=== PATIENT | female | born 1965 | race Caucasian/White ===

== ENCOUNTER 2018-04-03 20:26 | Emergency (ER) | payer OTHER, SELFPAY ==
[2018-04-03 20:44] VITALS: BP 110/69; PULSE 72; RESP 16; TEMP 36; O2SAT 99
--- NOTE | 2018-04-03 20:52 | ED.HA ---
HPI - Headache General Chief Complaint: Headache Stated Complaint: NAUSEA,MIGRAINED DRY THROAT Time Seen by Provider: 04/03/18 20:40 Source: patient and family Mode of arrival: ambulatory Limitations: no limitations History of Present Illness HPI Narrative: Patient with history of renal cell carcinoma and migraines presents to the emergency department with a gradually worsening occipital migraine headache that started this morning. She normally can take Tylenol or Motrin and help the pain, she has never been to the emergency department for migraine. She states it is worse with bright lights, loud noise and physical exhibiting a, she experiences some improvement with a quiet dark room. She does admit to multiple episodes of vomiting due to the pain and has lost control of her bowels with some of the a bouts of emesis. She denies any recent injury or exposure to chemicals. MD Complaint: headache and migraine Onset (ago): hour(s) Onset description: gradual Location: occipital Severity: severe Severity scale (1-10): 9 Quality: aching Relieving factors: dark room Exacerbating factors: exertion, light and noise Context: occurred at rest Associated symptoms: nausea, vomiting, photophobia and sensitivity to sound Related Data Previous Rx's Medication Instructions Recorded [BIEST 50:50] 1 mg TOPICAL QAM 30 Days #0 gm 12/22/17 progesterone micronized 100 mg PO QDAY #30 cap 12/22/17 Allergies Allergy/AdvReac Type Severity Reaction Status Date / Time hops [HOPS] Allergy Severe SWELLING Verified 04/03/18 20:43 OF THE THROAT (FROM BEER) Review of Systems Review of Systems All systems reviewed & are unremarkable except as noted in HPI and below Constitutional Denies chills, Denies fever(s), Reports headache(s), Denies lethargy and Denies weakness Eyes Denies change in vision, Denies eye discharge, Denies irritation and Denies loss of vision ENT Ears, Nose, Mouth, and Throat: Denies change in voice, Reports headache(s), Denies neck pain and Denies sore throat Cardiovascular Denies chest pain, Denies irregular heart rhythm, Denies lightheadedness, Denies palpitations, Denies dyspnea, Denies dyspnea on exertion and Denies orthopnea Respiratory Denies cough, Denies dyspnea, Denies dyspnea on exertion and Denies wheezing Gastrointestinal Gastrointestinal: Denies abdominal pain, Denies change in bowel habits, Reports diarrhea, Reports nausea and Reports vomiting Genitourinary Denies hematuria, Denies flank pain, Denies urinary incontinence and Denies urinary urgency Musculoskeletal Denies neck pain Integumentary/Breasts Denies pruritus, Denies erythema, Denies rash and Denies wounds Neurologic Denies confusion, Reports headache(s), Denies loss of vision and Denies weakness Psychiatric Denies anxiety, Denies confusion, Denies depression, Denies homicidal ideation and Denies suicidal ideation Endocrine Denies palpitations Hematologic/Lymphatic Denies easy bruising Allergic/Immunologic Denies wheezing PFSH Surgical History Status post breast augmentation Status post rhinoplasty Family History Father Cancer of lung Grandmother Stroke Grandfather DM (diabetes mellitus screen) Social History Smoking Status: Smoker, status unknown Exam Narrative Exam Narrative: Pleasant 53-year-old female obviously in discomfort, resting in a dark room with her eyes covered Initial Vital Signs Initial Vital Signs: Vital Signs Temperature 96.8 F L 04/03/18 20:44 Pulse Rate 72 04/03/18 20:44 Respiratory Rate 16 04/03/18 20:44 Blood Pressure 110/69 04/03/18 20:44 Pulse Oximetry 99 04/03/18 20:44 Const General: cooperative, well developed and acute distress Nutritional Appearance: well nourished Orientation: alert, awake, oriented x3 and not confused [facility] Head: normocephalic and atraumatic Ears: external ears normal and TM's normal bilaterally Nose: external nose normal and No nasal discharge Face and sinus: sinuses nontender, face symmetric, no sinus tenderness and No dry mucous membranes Mouth: oral mucosae normal and moist mucous membranes Teeth and gingiva: dentition normal Throat: tonsils normal and uvula midline Neck Neck: normal visual inspection, trachea midline, No lymphadenopathy, No midline deformity and No JVD Lymphatic: No lymphedema Resp Effort & Inspection: normal respiratory effort, able to speak in complete sentences, no respiratory distress and no use of accessory muscles Auscultation: clear to auscultation bilaterally, no rales, no rhonchi and no wheezes GI Inspection: non-distended Palpation: soft, no hepatosplenomegaly, No guarding, No pulsatile mass and No tender Auscultation: normal bowel sounds Back/Spine/Pelvis Back: No CVA tenderness Cervical Spine: cervical ROM normal and No pain with cervical ROM Thoracic/Lumbar Spine: thoracic and lumbar spine normal to inspection Skin General: no rashes or lesions noted, No jaundice and No petechiae Neuro General: alert, oriented x3, gait normal and no focal motor deficits Speech: speech normal Extrem General: full ROM, no clubbing, cyanosis or edema, no pedal edema and no calf tenderness Course Orders Ordered: ED Orders 04/03/18 20:45 Basic Metabolic Panel Stat Complete Blood Count AUTO DIFF Stat 04/03/18 21:03 CT head/brain wo con Stat Discontinued Medications Dexamethasone (Decadron) 10 mg IV NOW ONE Stop: 04/03/18 21:03 Last Admin: 04/03/18 21:24 Dose: 10 mg Diphenhydramine HCl (Benadryl) 25 mg IV NOW ONE Stop: 04/03/18 21:03 Last Admin: 04/03/18 21:24 Dose: 25 mg Sodium Chloride (Normal Saline 0.9%) 1,000 mls @ 1,000 mls/hr IV BOLUS ONE Stop: 04/03/18 22:01 Last Infusion: 04/03/18 22:40 Dose: 0 mls/hr Admin: 04/03/18 21:24 Dose: 1,000 mls/hr Ketorolac Tromethamine (Toradol) 15 mg IV NOW ONE Stop: 04/03/18 21:32 Last Admin: 04/03/18 21:42 Dose: 15 mg Metoclopramide HCl (Reglan) 10 mg IV NOW ONE Stop: 04/03/18 21:03 Last Admin: 04/03/18 21:23 Dose: 10 mg Vital Signs - 8 hr 04/03/18 22:14 Pulse Rate 78 Respiratory Rate 16 Blood Pressure [Left Arm] 114/74 Pulse Oximetry 100 MDM - Headache Differential Diagnosis Differential diagnosis: Likely migraine, tension headache, subarachnoid hemorrhage, headache, meningitis and sinusitis Medical Records Attestation: I reviewed the patient's medical records. Lab Data Attestation: I reviewed the patient's lab results. Result diagrams: 04/03/18 20:45 04/03/18 20:45 Lab Results 04/03/18 04/03/18 Range/Units 20:45 20:45 WBC 11.1 H (4.5-11.0) X10^3/uL RBC 4.27 (4.0-5.2) X10^6/uL Hgb 13.5 (12.0-16.0) g/dL Hct 39.3 (36-46) % MCV 92.1 (80-100) fL MCH 31.6 (26-34) PG MCHC 34.3 (30-36) % RDW 13.3 (11.6-14.8) % Plt Count 203 (150-400) X10^3/uL Neut % (Auto) 77.7 H (50-75) % Lymph % (Auto) 16.4 L (25-40) % [place] % (Auto) 5.3 (3-14) % Eos % (Auto) 0.3 L (2-4) % Baso % (Auto) 0.3 (0-2) % Neut # (Auto) 8600 H (5506-0154) /uL Sodium 140 (137-145) mmol/L Potassium 4.1 (3.4-5.1) mmol/L Chloride 101 (98-107) mmol/L Carbon Dioxide 28 (22-32) mmol/L BUN 21 H (7-17) mg/dL Creatinine 1.00 (0.52-1.04) mg/dL Estimated GFR 57.6 L (>60) mL/min BUN/Creatinine Ratio 21.0 (6-22) Glucose 137 H (70-100) mg/dL Calcium 9.3 (8.4-10.2) mg/dL Imaging Data CT scan - head: Attestation: I personally reviewed and interpreted this imaging study as follows: My impression: NAP Radiologist's impression: PROCEDURE: CT HEAD/BRAIN WO CON INDICATIONS: worst headache, N/V. Hx renal cell CA TECHNIQUE: Noncontrast 4.5 mm thick angled axial sections acquired from the foramen magnum to the vertex, with coronal and sagittal reformats. For radiation dose reduction, the following was used: automated exposure control, adjustment of mA and/or kV according to patient size. COMPARISON: None. FINDINGS: Image quality: Excellent. CSF spaces: Basal cisterns are patent. No extra-axial fluid collections. Ventricles are normal in size and shape. Brain: No midline shift. No intracranial masses or hemorrhage. Strong-white matter interface is normal. Skull and face: Calvarium and visualized facial bones are intact, without suspicious lesions. Sinuses: Visualized sinuses and mastoids are clear. IMPRESSION: No CT evidence of acute intracranial pathology. If symptoms continue, consider MRI with and without contrast. Dictated by: Gio Kwong M.D. on 04/03/2018 at 21:20 Approved by: Gio Kwong M.D. on 04/03/2018 at 21:22 Discharge Plan Departure Patient Disposition: Home, Self-Care Clinical Impression: Migraine Discharge Date/Time: 04/03/18 23:00 Interventions: ED Discharge Assessment Last Done: 04/03/18 22:59 Instructions: DI for Migraine Activity Restrictions/Additional Instructions: *You have been diagnosed with [ acute migraine ] *What to do: * continue to take medications as directed *Follow up with your primary care provider in 2-3 days *Return to ER if you should have any new, worsening or concerning symptoms Prescriptions: No Action progesterone micronized 100 MG capsule 100 mg PO QDAY Qty: 30 RF: PRN [BIEST 50:50] 1 mg Topical QAM 30 Days Qty: 0 RF: PRN
--- NOTE | 2018-04-03 21:03 | DI.CT.S_ITS ---
PROCEDURE: CT HEAD/BRAIN WO CON INDICATIONS: worst headache, N/V. Hx renal cell CA TECHNIQUE: Noncontrast 4.5 mm thick angled axial sections acquired from the foramen magnum to the vertex, with coronal and sagittal reformats. For radiation dose reduction, the following was used: automated exposure control, adjustment of mA and/or kV according to patient size. COMPARISON: None. FINDINGS: Image quality: Excellent. CSF spaces: Basal cisterns are patent. No extra-axial fluid collections. Ventricles are normal in size and shape. Brain: No midline shift. No intracranial masses or hemorrhage. Strong-white matter interface is normal. Skull and face: Calvarium and visualized facial bones are intact, without suspicious lesions. Sinuses: Visualized sinuses and mastoids are clear. IMPRESSION: No CT evidence of acute intracranial pathology. If symptoms continue, consider MRI with and without contrast. Dictated by: Gio Kwong M.D. on 04/03/2018 at 21:20 Approved by: Gio Kwong M.D. on 04/03/2018 at 21:22
[2018-04-03] MEDS: METOCLOPRAMIDE 10 MG/2 ML INJ IV (21:23)
[2018-04-03] MEDS: diphenhydrAMINE 50 MG/ML VIAL 25 MG IV (21:24)
[2018-04-03] MEDS: SODIUM CHLORIDE 0.9% 1,000 ML 1000 ML IV (21:24)
[2018-04-03] MEDS: DEXAMETHASONE 10 MG/ML VIAL IV (21:24)
[2018-04-03 21:40] LABS: Add Manual Diff / Slide Review NO; Basophils Percent Auto 0.3 % (0-2); Eosinophils Percent Auto 0.3 % (2-4); Hematocrit 39.3 % (36-46); Hemoglobin 13.5 g/dL (12.0-16.0); Lymphocytes Percent Auto 16.4 % (25-40); Mean Corpuscular HGB Conc 34.3 % (30-36); Mean Corpuscular Hemoglobin 31.6 PG (26-34); Mean Corpuscular Volume 92.1 fL (80-100); Monocytes Percent Auto 5.3 % (3-14); Neutrophils Absolute Auto 8600 /uL (3000-5900); Neutrophils Percent Auto 77.7 % (50-75); Platelet Count 203 X10^3/uL (150-400); Red Blood Cell Count 4.27 X10^6/uL (4.0-5.2); Red Cell Distribution Width 13.3 % (11.6-14.8); White Blood Cell Count 11.1 X10^3/uL (4.5-11.0)
[2018-04-03] MEDS: KETOROLAC 60 MG/2 ML VIAL 15 MG IV (21:42)
[2018-04-03 21:45] LABS: Blood Urea Nitrogen 21 mg/dL (7-17); Calcium 9.3 mg/dL (8.4-10.2); Carbon Dioxide 28 mmol/L (22-32); Chloride 101 mmol/L (98-107); Estimated Glomerular Filt Rate 57.6 mL/min (>60); Glucose 137 mg/dL (70-100); HEMOLYSIS 32 (0-50); Potassium 4.1 mmol/L (3.4-5.1); Sodium 140 mmol/L (137-145)
[2018-04-03 22:14] VITALS: BP 114/74; PULSE 78; RESP 16; O2SAT 100
== END 2018-04-03 23:00 | disposition home or self-care (01) ==
PROVIDERS: Emergency Provider Emergency Medicine; Family Provider Family Medicine; PCP Family Medicine
DX: G43.909 Migraine, unspecified, not intractable, without status migrainosus (principal)
CPT/HCPCS: 36591; 70450; 80048; 85025; 96361; 96374; 96375; 96376; 99283; 99284; J1100; J1200; J1885; J2765

== ENCOUNTER → 2018-05-12 11:06 | Outpatient (CLI) | payer OTHER, SELFPAY ==
[2018-05-12 12:20] LABS: BUN Creatinine Ratio 17.3 (6-22); Blood Urea Nitrogen 19 mg/dL (7-17); Calcium 10.3 mg/dL (8.4-10.2); Carbon Dioxide 32 mmol/L (22-32); Chloride 99 mmol/L (98-107); Estimated Glomerular Filt Rate 51.6 mL/min (>60); Glucose 93 mg/dL (70-100); HEMOLYSIS < 15 (0-50); Potassium 4.6 mmol/L (3.4-5.1); Sodium 141 mmol/L (137-145)
[2018-05-12 12:25] LABS: Hematocrit 43.1 % (36-46); Hemoglobin 14.6 g/dL (12.0-16.0)
[2018-05-12 12:29] LABS: Creatinine Urine Random 28.4 mg/dL; Protein (Total) Urine Random 10 mg/dL (0-12); Protein Creatinine Ratio Urine 0.35 GRAM/24H
[2018-05-14 14:17] LABS: Parathyroid Hormone Int 41 pg/mL (14-64)
== END ==
PROVIDERS: Family Provider Family Medicine; PCP Family Medicine; Visit Provider Student in an Organized Health Care Education/Training Program
DX: N05.9 Unspecified nephritic syndrome with unspecified morphologic changes (principal); D64.9 Anemia, unspecified; N25.81 Secondary hyperparathyroidism of renal origin; R80.9 Proteinuria, unspecified
CPT/HCPCS: 36415; 80048; 82570; 83970; 84156; 85014; 85018

== ENCOUNTER → 2018-11-23 15:40 | Outpatient (CLI) | payer OTHER, SELFPAY ==
[2018-11-23 17:07] LABS: Hemoglobin 13.7 g/dL (12.0-16.0)
[2018-11-23 17:25] LABS: BUN Creatinine Ratio 14.2 (6-22); Blood Urea Nitrogen 17 mg/dL (7-17); Calcium 9.4 mg/dL (8.4-10.2); Carbon Dioxide 29 mmol/L (22-32); Chloride 103 mmol/L (98-107); Estimated Glomerular Filt Rate 46.6 mL/min (>60); Glucose 120 mg/dL (70-100); HEMOLYSIS < 15 (0-50); Potassium 4.4 mmol/L (3.4-5.1); Sodium 140 mmol/L (137-145)
[2018-11-23 17:27] LABS: Creatinine Urine Random 126.9 mg/dL
[2018-11-23 17:35] LABS: Protein (Total) Urine Random < 5 mg/dL (0-12); Protein Creatinine Ratio Urine 0.03 GRAM/24H
[2018-11-26 14:26] LABS: Parathyroid Hormone Int 21 pg/mL (14-64)
== END ==
PROVIDERS: Family Provider Family Medicine; PCP Family Medicine; Visit Provider Student in an Organized Health Care Education/Training Program
DX: N05.9 Unspecified nephritic syndrome with unspecified morphologic changes (principal); D64.9 Anemia, unspecified; N25.81 Secondary hyperparathyroidism of renal origin; R80.9 Proteinuria, unspecified
CPT/HCPCS: 36415; 80048; 82570; 83970; 84156; 85014; 85018

== ENCOUNTER → 2018-12-06 07:54 | Outpatient (CLI) | payer OTHER, SELFPAY ==
--- NOTE | 2018-12-06 | DI.MRI.S_ITS ---
PROCEDURE: MR CERVICAL SPINE WO CON INDICATIONS: RADICULOPATHY OF CERVICAL REGION TECHNIQUE: Noncontrast sagittal T1 spin echo and T2 fast spin echo, sagittal STIR, foraminal oblique sagittal T2 fast spin echo, and axial gradient echo or T2 fast spin echo through the cervical spine. COMPARISON: [facility], , C-SPINE WITHOUT CONTRAST, 07/31/2016, 16:34. FINDINGS: Image quality: Excellent. Alignment and Curvature: There is straightening of the cervical lordosis. Minimal anterolisthesis is demonstrated at C3-C4, C4-C5, C6-C7, C7-T1, T1-T2, and T2-T3. There is minimal retrolisthesis at C5-C6. Bone Marrow: Marrow demonstrates normal overall signal. Spinal Cord: Visualized spinal cord has normal size. There is minimal edema within the ventral aspect of the cervical cord at C4-C5 secondary to mass effect from the disc herniation. No cerebellar tonsillar herniation. Paraspinous Soft Tissues: No paravertebral masses. Prevertebral soft tissues are normal in thickness. C2-C3: Within normal limits. C3-C4: Minimal disc bulge. There is moderate right facet arthropathy and minimal uncovertebral joint arthropathy. No spinal canal narrowing. There is moderate to severe right neuroforaminal narrowing. Findings are similar to the prior study. C4-C5: Mild loss of disc height with a broad-based disc osteophyte complex including a central disc protrusion. There is associated mass effect on the ventral aspect of the cervical cord. Mild bilateral uncovertebral and facet joint arthropathy demonstrated. The findings contribute to moderate to severe spinal canal narrowing with moderate right and mild left neuroforaminal narrowing. The findings are similar to the prior study. C5-C6: Mild loss of disc height with a small broad-based disc osteophyte complex. There is bilateral [id number] uncovertebral and facet joint arthropathy. The findings contribute to mild spinal canal narrowing with moderate to severe bilateral neuroforaminal narrowing. The neuroforaminal narrowing appears slightly increased on the left compared to the prior study. C6-C7: Small disc osteophyte complex with moderate left neuroforaminal narrowing. Findings contribute to minimal spinal canal narrowing with mild to moderate left neuroforaminal narrowing. The findings appears increased from the prior study. C7-T1: Preserved disc height. There is mild bilateral facet arthropathy and minimal uncovertebral arthropathy. No spinal canal narrowing. There is mild bilateral neuroforaminal narrowing. IMPRESSION: 1. Multilevel degenerative changes redemonstrated with slight interval increase in left neuroforaminal narrowing at C5-C6 where there is moderate to severe narrowing and C6-C7 where there is [id number]. 2. Additional multilevel neuroforaminal narrowing redemonstrated elsewhere including moderate to severe narrowing on the right at C3-C4 and C5-C6. Moderate narrowing also demonstrated on the right at C4-C5. 3. Moderate to severe spinal canal narrowing redemonstrated at C4-C5 with mild mass effect on the ventral aspect of the cervical cord. There is minimal associated cord edema. Dictated by: Brent Valerio M.D. on 12/06/2018 at 10:26 Approved by: Brent Valerio M.D. on 12/06/2018 at 10:57
== END ==
PROVIDERS: Family Provider Family Medicine; PCP Family Medicine; Visit Provider Orthopaedic Surgery
DX: M47.22 Other spondylosis with radiculopathy, cervical region (principal); M48.02 Spinal stenosis, cervical region
CPT/HCPCS: 72141

== ENCOUNTER → 2019-05-03 12:52 | Outpatient (CLI) | payer OTHER, SELFPAY ==
[2019-05-03 13:28] LABS: BUN Creatinine Ratio 11.8 (6-22); Blood Urea Nitrogen 13 mg/dL (7-17); Calcium 9.6 mg/dL (8.4-10.2); Carbon Dioxide 30 mmol/L (22-32); Chloride 103 mmol/L (98-107); Estimated Glomerular Filt Rate 51.4 mL/min (>60); Glucose 85 mg/dL (70-100); HEMOLYSIS < 15 (0-50); Potassium 4.4 mmol/L (3.4-5.1); Sodium 141 mmol/L (137-145)
== END ==
PROVIDERS: PCP Family Medicine; Visit Provider Hospitalist
DX: R25.2 Cramp and spasm (principal)
CPT/HCPCS: 36415; 80048; 83735

== ENCOUNTER → 2019-05-23 09:27 | Outpatient (CLI) | payer OTHER, SELFPAY ==
[2019-05-23 10:11] LABS: Hematocrit 40.7 % (36-46); Hemoglobin 13.9 g/dL (12.0-16.0)
[2019-05-23 10:27] LABS: BUN Creatinine Ratio 15.5 (6-22); Blood Urea Nitrogen 17 mg/dL (7-17); Calcium 9.3 mg/dL (8.4-10.2); Carbon Dioxide 29 mmol/L (22-32); Chloride 104 mmol/L (98-107); Estimated Glomerular Filt Rate 51.4 mL/min (>60); Glucose 97 mg/dL (70-100); HEMOLYSIS < 15 (0-50); Potassium 4.1 mmol/L (3.4-5.1); Sodium 140 mmol/L (137-145)
[2019-05-23 12:14] LABS: Creatinine Urine Random 170.3 mg/dL; Protein (Total) Urine Random 7 mg/dL (0-12); Protein Creatinine Ratio Urine 0.04 GRAM/24H
[2019-05-26 13:43] LABS: Parathyroid Hormone Int 70 pg/mL (14-64)
== END ==
PROVIDERS: PCP Family Medicine; Visit Provider Student in an Organized Health Care Education/Training Program
DX: R80.9 Proteinuria, unspecified (principal); N05.9 Unspecified nephritic syndrome with unspecified morphologic changes; D64.9 Anemia, unspecified; N25.81 Secondary hyperparathyroidism of renal origin
CPT/HCPCS: 36415; 80048; 82570; 83970; 84156; 85014; 85018

== ENCOUNTER → 2019-08-22 13:52 | Outpatient (CLI) | payer OTHER, SELFPAY ==
[2019-08-22 15:05] LABS: Add Manual Diff / Slide Review NO; Basophils Absolute Auto 0 /uL (0-100); Basophils Percent Auto 0.7 % (0-2); Eosinophils Absolute Auto 0 /uL (0-450); Eosinophils Percent Auto 0.8 % (2-4); Hematocrit 41.2 % (36-46); Hemoglobin 13.7 g/dL (12.0-16.0); Lymphocytes Absolute Auto 1700 /uL (1100-4500); Lymphocytes Percent Auto 31.5 % (25-40); Mean Corpuscular HGB Conc 33.2 % (30-36); Mean Corpuscular Hemoglobin 31.4 PG (26-34); Mean Corpuscular Volume 94.3 fL (80-100); Monocytes Absolute Auto 300 /uL (0-900); Monocytes Percent Auto 5.7 % (3-14); Neutrophils Absolute Auto 3300 /uL (1500-7000); Neutrophils Percent Auto 61.3 % (50-75); Platelet Count 217 X10^3/uL (150-400); Red Blood Cell Count 4.37 X10^6/uL (4.0-5.2); Red Cell Distribution Width 12.7 % (11.6-14.8); White Blood Cell Count 5.4 X10^3/uL (4.5-11.0)
[2019-08-22 16:18] LABS: Alanine Aminotransferase 13 IU/L (9-52); Albumin 4.3 g/dL (3.5-5.0); Alkaline Phosphatase 48 U/L (38-126); Aspartate Aminotransferase 18 IU/L (14-36); Bilirubin Total 0.3 mg/dL (0.2-1.3); Blood Urea Nitrogen 19 mg/dL (7-17); Calcium 9.4 mg/dL (8.4-10.2); Carbon Dioxide 31 mmol/L (22-32); Chloride 103 mmol/L (98-107); Estimated Glomerular Filt Rate 57.4 mL/min (>60); Globulin 2.2 g/dL (1.7-4.1); Glucose 95 mg/dL (70-100); HEMOLYSIS < 15 (0-50); Potassium 4.3 mmol/L (3.4-5.1); Sodium 139 mmol/L (137-145); Total Protein 6.5 g/dL (6.3-8.2)
== END ==
PROVIDERS: Family Provider Family Medicine; PCP Family Medicine; Visit Provider Physician Assistant Medical
DX: C64.9 Malignant neoplasm of unspecified kidney, except renal pelvis (principal)
CPT/HCPCS: 36415; 80053; 85025

== ENCOUNTER → 2019-12-06 16:23 | Outpatient (CLI) | payer OTHER, SELFPAY ==
[2019-12-06 18:03] LABS: Hematocrit 42.4 % (36-46); Hemoglobin 14.2 g/dL (12.0-16.0)
[2019-12-06 18:41] LABS: BUN Creatinine Ratio 18.3 (6-22); Blood Urea Nitrogen 22 mg/dL (7-17); Calcium 9.8 mg/dL (8.4-10.2); Carbon Dioxide 29 mmol/L (22-32); Chloride 101 mmol/L (98-107); Estimated Glomerular Filt Rate 46.5 mL/min (>60); Glucose 97 mg/dL (70-100); HEMOLYSIS < 15 (0-50); Sodium 140 mmol/L (137-145)
[2019-12-06 18:42] LABS: Creatinine Urine Random 112.3 mg/dL; Protein (Total) Urine Random 7 mg/dL (0-12); Protein Creatinine Ratio Urine 0.06 GRAM/24H
[2019-12-10 13:33] LABS: Parathyroid Hormone Int 22 pg/mL (14-64)
== END ==
PROVIDERS: Family Provider Family Medicine; PCP Family Medicine; Referring Provider Student in an Organized Health Care Education/Training Program; Visit Provider Student in an Organized Health Care Education/Training Program
DX: N05.9 Unspecified nephritic syndrome with unspecified morphologic changes (principal); D64.9 Anemia, unspecified; N25.81 Secondary hyperparathyroidism of renal origin; R80.9 Proteinuria, unspecified
CPT/HCPCS: 36415; 80048; 82570; 83970; 84156; 85014; 85018

== ENCOUNTER → 2020-07-27 12:17 | Outpatient (CLI) | payer OTHER, SELFPAY ==
[2020-07-27 13:06] LABS: Hematocrit 41.2 % (36-46); Hemoglobin 13.6 g/dL (12.0-16.0)
[2020-07-27 14:25] LABS: BUN Creatinine Ratio 15.6 (6-22); Blood Urea Nitrogen 17 mg/dL (7-17); Calcium 9.3 mg/dL (8.4-10.2); Carbon Dioxide 32 mmol/L (22-32); Chloride 102 mmol/L (98-107); Estimated Glomerular Filt Rate 51.7 mL/min (>60); Glucose 93 mg/dL (70-100); HEMOLYSIS < 15 (0-50); Potassium 5.1 mmol/L (3.4-5.1); Sodium 139 mmol/L (137-145)
[2020-07-27 14:57] LABS: Creatinine Urine Random 131.8 mg/dL; Protein (Total) Urine Random 5 mg/dL (0-12); Protein Creatinine Ratio Urine 0.03 GRAM/24H
[2020-07-28 07:08] LABS: Parathyroid Hormone Int 74 pg/mL (15-65)
== END ==
PROVIDERS: Family Provider Family Medicine; PCP Family Medicine; Referring Provider Student in an Organized Health Care Education/Training Program; Visit Provider Student in an Organized Health Care Education/Training Program
DX: N05.9 Unspecified nephritic syndrome with unspecified morphologic changes (principal); D64.9 Anemia, unspecified; N25.81 Secondary hyperparathyroidism of renal origin; R80.9 Proteinuria, unspecified
CPT/HCPCS: 36415; 80048; 82570; 83970; 84156; 85014; 85018

== ENCOUNTER → 2020-11-01 11:12 | Outpatient (CLI) | payer OTHER, SELFPAY ==
--- NOTE | 2020-11-01 | DI.MG.S_ITS ---
BILATERAL DIGITAL SCREENING MAMMOGRAM 3D/2D WITH CAD WITH AUGMENTATION: 11/01/2020 CLINICAL: Routine screening. Family history of breast cancer. Comparison is made to exams dated: 08/11/2017 mammogram, 05/03/2015 mammogram, and 01/22/2012 mammogram - [facility]. The tissue of both breasts is heterogeneously dense. This may lower the sensitivity of mammography. Current study was also evaluated with a Computer Aided Detection (CAD) system. Bilateral breast implants are stable. No significant masses, calcifications, or other findings are seen in either breast. There has been no significant interval change. IMPRESSION: NEGATIVE There is no mammographic evidence of malignancy. A 1 year screening mammogram is recommended. This exam was interpreted at Station ID: [id number]. NOTE: For mammograms, a report in lay terms will be sent to the patient. Approximately 15% of breast malignancies will not be visualized mammographically. In the management of a palpable breast mass, a negative mammogram must not discourage biopsy of a clinically suspicious lesion. Electronically Signed By: Ahsan victoria/artemio:11/01/2020 13:14:27 letter sent: Normal Exam ACR BI-RADS Category 1: Negative [id number]
== END ==
PROVIDERS: Family Provider Family Medicine; PCP Family Medicine; Referring Provider Family Medicine; Visit Provider Family Medicine
DX: Z12.31 Encounter for screening mammogram for malignant neoplasm of breast (principal); Z80.3 Family history of malignant neoplasm of breast
CPT/HCPCS: 77063; 77067

== ENCOUNTER 2021-04-09 05:46 | Observation (INO) | payer OTHER, SELFPAY ==
[2021-04-09] VITALS (17 sets, daily range): BP systolic 96–119; BP diastolic 7–74; PULSE 60–125; RESP 12–25; TEMP 36.1–37.3; O2SAT 95–100; BMI 27.1; BMI 27.2
--- NOTE | 2021-04-09 05:52 | DI.RAD.S_ITS ---
PROCEDURE: XR CHEST 1V INDICATIONS: chest pain, nausea, vomiting TECHNIQUE: One view of the chest was acquired. COMPARISON: [facility], , CHEST 2 VIEW, 01/14/2012, 11:01. FINDINGS: Surgical changes and devices: None. Lungs and pleura: Lungs are clear. No pleural effusions or pneumothorax. Mediastinum: Mediastinal contours appear normal. Heart size is normal. Bones and chest wall: No suspicious bony lesions. Overlying soft tissues appear unremarkable. IMPRESSION: Normal for age, source of current chest pain symptoms is not seen. Dictated by: Codey Georges M.D. on 04/09/2021 at 8:20 Approved by: Codey Georges M.D. on 04/09/2021 at 8:20
--- NOTE | 2021-04-09 05:55 | DI.RAD.S_ITS ---
PROCEDURE: XR ABDOMEN 1V INDICATIONS: nausea, vomiting, syncope TECHNIQUE: One view of the abdomen acquired. COMPARISON: [facility], CT, ABDOMEN/PELVIS WITH CONTRAST, 11/01/2016, 8:36. FINDINGS: Surgical changes and devices: Surgical clips medial left upper quadrant, in this patient with prior CT did identified renal cell carcinoma on the left 11/01/16.. Bowel: Bowel gas pattern is normal. Soft tissues: No suspicious abdominal calcifications. Visualized solid organ contours appear normal in size. Bones: No suspicious bony lesions. IMPRESSION: Postsurgical changes of left nephrectomy, no acute disease. Dictated by: Codey Georges M.D. on 04/09/2021 at 9:02 Approved by: Codey Georges M.D. on 04/09/2021 at 9:03
--- NOTE | 2021-04-09 05:56 | ED.CHESTPAIN ---
HPI - Chest Pain <Mehnaz Portillo DO - Last Filed: 04/10/21 00:17> General Chief Complaint: Chest Pain Stated Complaint: chest pain Time Seen by Provider: 04/09/21 05:52 Source: patient and EMS Mode of arrival: EMS Limitations: no limitations History of Present Illness HPI narrative: This is a 56-year-old female comes emergency department with complaint of nausea and abdominal discomfort last night. Patient states she woke up this morning to urinate went to the bathroom got very sweaty felt very hot and lost consciousness. Patient fell between the toilet and the wall. She denies any headache initially but states that she was developing 1 here in the department. She denies any neck or back pain. She describes chest cramping with this occurred. She denies its presence currently. Patient has continued to have nausea and some episodes of vomiting. She denies any him had emesis. She denies any diarrhea constipation. No dysuria, urgency frequency. She is currently denying any abdominal back or flank pain. Patient states that she did take a Zofran from her last night. She uses a transdermal hormone patch but denies any other daily medications. She does have a history of atrial fibrillation possibly, she describes it as having a high heart rate out of control but is not on any medications chronically or anticoagulated. She also has a history of nephrectomy secondary to kidney cancer. And states that all her ?girl parts? have been removed. Patient denies tobacco, alcohol or illicit. Per EMS they have been emotionally distressed her and her as their daughter left with their granddaughter recently and there were some concerns about granddaughter states. She does not wish to discuss this current situation further. Patient denies any thoughts of harming herself or others. Related Data Home Medications Medication Instructions Recorded Confirmed estradiol 1 patch TRANSDERMAL WEEKLY 04/09/21 04/09/21 Allergies Allergy/AdvReac Type Severity Reaction Status Date / Time hops [HOPS] Allergy Severe SWELLING Verified 11/01/20 10:09 OF THE THROAT (FROM BEER) Review of Systems <Mehnaz Portillo DO - Last Filed: 04/10/21 00:17> Review of Systems ROS Unobtainable: All systems reviewed & are unremarkable except as noted in HPI and below Patient History <Mehnaz Portillo DO - Last Filed: 04/10/21 00:17> Medical History CKD (chronic kidney disease), stage III History of kidney cancer Surgical History Anesthesia History of kidney removal (~12/29/16) History of rectocele (~09/28/17) Status post breast augmentation (~2004) Status post rhinoplasty (~03/2005) Family History Father Cancer of lung Grandmother Stroke Grandfather DM (diabetes mellitus screen) Family/Other Cancer Social History household members: spouse Smoking Status: Former smoker alcohol intake: current substance use type: does not use Smoking Status: Former smoker alcohol intake frequency: 0-2 drinks per day Substance Use Type: does not use Exam <Mehnaz Portillo DO - Last Filed: 04/10/21 00:17> Narrative Exam Narrative: GENERAL: Alert and oriented x three female in [id number] distress. Patient appears to have a flat affect. HEENT: Head normocephalic, atraumatic, EOMI, pupils reactive, face symmetric, moist mucous membranes NECK: Supple, full range of motion CARDIOVASCULAR: Irregularly irregular rate and rhythm without murmurs, rubs or gallops. No JVD. No swelling bilateral lower extremities. RESPIRATORY: Breath sounds equal bilaterally, no wheezes rales or rhonchi. No tachypnea accessory muscle use. ABDOMEN: Soft, nontender. Normoactive bowel sounds all 4 quadrants. No guarding or rebound, rigidity, no mass. Non-distended. : No CVA tenderness EXTREMITIES: Normal range of motion, no clubbing or edema. Neurovascularly intact NEUROLOGICAL: Cranial nerves II through XII grossly intact. Moving all extremities SKIN: Warm, dry, no petechiae, no rashes or lesions. SKIN: No rashes or skin changes appreciated. PSYCH: denies suicidal, homicidal ideation. Initial Vital Signs Initial Vital Signs: Vital Signs Temperature 96.9 F L 04/09/21 05:50 Pulse Rate 117 H 04/09/21 05:50 Respiratory Rate 14 04/09/21 05:50 Blood Pressure 118/7 L 04/09/21 05:50 Pulse Oximetry 98 04/09/21 05:50 <Walter Kauffman DO - Last Filed: 04/09/21 08:20> Initial Vital Signs Initial Vital Signs: Vital Signs Temperature 96.9 F L 04/09/21 05:50 Pulse Rate 117 H 04/09/21 05:50 Respiratory Rate 14 04/09/21 05:50 Blood Pressure 118/7 L 04/09/21 05:50 Pulse Oximetry 98 04/09/21 05:50 Scores <Mehnaz Portillo DO - Last Filed: 04/10/21 00:17> GCS [place] coma scale eye opening: Spontaneous S[place] coma scale verbal response: Orientated [place] coma scale motor response: Obey commands [place] coma scale total score: 15 Course <Mehnaz Portillo DO - Last Filed: 04/10/21 00:17> Orders Ordered: Acetaminophen (Acetaminophen 325 Mg Tablet) 650 mg PO Q6HR PRN PRN Reason: Fever/Mild Pain (1-3) Last Admin: 04/09/21 22:36 Dose: 650 mg Documented by: Admin: 04/09/21 13:47 Dose: 650 mg Documented by: CODY Enoxaparin Sodium (Enoxaparin 40 Mg/0.4 Ml Syringe) 40 mg SUBCUT DAILY [facility] Sodium Chloride (Normal Saline 0.9%) 1,000 mls @ 100 mls/hr IV CONT ANDREW Last Admin: 04/09/21 18:02 Dose: 100 mls/hr Documented by: ALEXA Metoprolol Succinate (Metoprolol Er 25 Mg Tablet) 12.5 mg PO DAILY ANDREW Naloxone HCl (Naloxone 0.4 Mg/Ml Vial) 0.2 mg IV Q2MIN PRN PRN Reason: Opiate Reversal Discontinued Medications Aspirin (Aspirin 81 Mg Chew Tab) 324 mg PO NOW ONE Stop: 04/09/21 05:53 Last Admin: 04/09/21 05:59 Dose: 324 mg Documented by: JESÚS Sodium Chloride (Normal Saline 0.9%) 1,000 mls @ 1,000 mls/hr IV BOLUS ONE Stop: 04/09/21 06:51 Last Infusion: 04/09/21 07:06 Dose: 0 mls/hr Documented by: Admin: 04/09/21 06:01 Dose: 1,000 mls/hr Documented by: JESÚS Lorazepam (Lorazepam 2 Mg/Ml Inj) 0.5 mg IV NOW ONE Stop: 04/09/21 05:56 Last Admin: 04/09/21 06:01 Dose: 0.5 mg Documented by: JESÚS Metoprolol Succinate (Metoprolol Er 25 Mg Tablet) 25 mg PO NOW ONE Stop: 04/09/21 07:39 Last Admin: 04/09/21 07:59 Dose: 25 mg Documented by: FRANCE Potassium Chloride (Potassium Chloride 20 Meq Tab) 40 meq PO NOW ONE Stop: 04/09/21 10:20 Last Admin: 04/09/21 10:40 Dose: 40 meq Documented by: CODY Vital Signs Vital signs: Vital Signs - 8 hr 04/09/21 05:50 04/09/21 05:51 04/09/21 06:00 Temperature 96.9 F L Pulse Rate 117 H 100 H 99 H Respiratory Rate 14 25 H Blood Pressure 118/7 L 109/74 Pulse Oximetry 98 98 96 04/09/21 06:30 04/09/21 06:40 04/09/21 07:59 Temperature Pulse Rate 108 H 73 124 H Respiratory Rate Blood Pressure 119/70 119/73 101/66 Pulse Oximetry 99 100 <Walter Kauffman, - Last Filed: 04/09/21 08:20> Orders Ordered: Acetaminophen (Acetaminophen 325 Mg Tablet) 650 mg PO Q6HR PRN PRN Reason: Fever/Mild Pain (1-3) Last Admin: 04/09/21 22:36 Dose: 650 mg Documented by: Admin: 04/09/21 13:47 Dose: 650 mg Documented by: CODY Enoxaparin Sodium (Enoxaparin 40 Mg/0.4 Ml Syringe) 40 mg SUBCUT DAILY ANDREW Sodium Chloride (Normal Saline 0.9%) 1,000 mls @ 100 mls/hr IV CONT ANDREW Last Admin: 04/09/21 18:02 Dose: 100 mls/hr Documented by: ALEXA Metoprolol Succinate (Metoprolol Er 25 Mg Tablet) 12.5 mg PO DAILY ANDREW Naloxone HCl (Naloxone 0.4 Mg/Ml Vial) 0.2 mg IV Q2MIN PRN PRN Reason: Opiate Reversal Discontinued Medications Aspirin (Aspirin 81 Mg Chew Tab) 324 mg PO NOW ONE Stop: 04/09/21 05:53 Last Admin: 04/09/21 05:59 Dose: 324 mg Documented by: JESÚS Sodium Chloride (Normal Saline 0.9%) 1,000 mls @ 1,000 mls/hr IV BOLUS ONE Stop: 04/09/21 06:51 Last Infusion: 04/09/21 07:06 Dose: 0 mls/hr Documented by: Admin: 04/09/21 06:01 Dose: 1,000 mls/hr Documented by: JESÚS Lorazepam (Lorazepam 2 Mg/Ml Inj) 0.5 mg IV NOW ONE Stop: 04/09/21 05:56 Last Admin: 04/09/21 06:01 Dose: 0.5 mg Documented by: JESÚS Metoprolol Succinate (Metoprolol Er 25 Mg Tablet) 25 mg PO NOW ONE Stop: 04/09/21 07:39 Last Admin: 04/09/21 07:59 Dose: 25 mg Documented by: FRANCE Potassium Chloride (Potassium Chloride 20 Meq Tab) 40 meq PO NOW ONE Stop: 04/09/21 10:20 Last Admin: 04/09/21 10:40 Dose: 40 meq Documented by: CODY Vital Signs Vital signs: Vital Signs - 8 hr 04/09/21 05:50 04/09/21 05:51 04/09/21 06:00 Temperature 96.9 F L Pulse Rate 117 H 100 H 99 H Respiratory Rate 14 25 H Blood Pressure 118/7 L 109/74 Pulse Oximetry 98 98 96 04/09/21 06:30 04/09/21 06:40 04/09/21 07:59 Temperature Pulse Rate 108 H 73 124 H Respiratory Rate Blood Pressure 119/70 119/73 101/66 Pulse Oximetry 99 100 MDM - Chest Pain <Mehnaz Portillo DO - Last Filed: 04/10/21 00:17> Lab Data Result diagrams: 04/09/21 05:45 04/09/21 05:45 Labs: Lab Results 04/09/21 04/09/21 04/09/21 Range/Units 05:45 05:45 05:45 WBC 7.6 (4.5-11.0) X10^3/uL RBC 4.70 (4.0-5.2) X10^6/uL Hgb 14.9 (12.0-16.0) g/dL Hct 43.7 (36-46) % MCV 93.0 (80-100) fL MCH 31.6 (26-34) PG MCHC 34.0 (30-36) % RDW 13.6 (11.6-14.8) % Plt Count 248 (150-400) X10^3/uL Neut % (Auto) 41.2 L (50-75) % Lymph % (Auto) 47.6 H (25-40) % Vernon % (Auto) 9.2 (3-14) % Eos % (Auto) 1.4 L (2-4) % Baso % (Auto) 0.6 (0-2) % Neut # (Auto) 3100 (9912-5486) /uL Lymph # (Auto) 3600 (3475-2877) /uL Vernon # (Auto) 700 (0-900) /uL Eos # (Auto) 100 (0-450) /uL Baso # (Auto) 0 (0-100) /uL PT 11.0 (10.1-12.7) SECONDS INR 1.0 (0.9-1.3) APTT 28 (26.4-36.2) SECONDS D-Dimer < 200 (<230) ng/mL Sodium 137 (137-145) mmol/L Potassium 3.2 L (3.4-5.1) mmol/L Chloride 105 (98-107) mmol/L Carbon Dioxide 25 (22-32) mmol/L BUN 15 (7-17) mg/dL Creatinine 1.07 H (0.52-1.04) mg/dL Estimated GFR 52.7 L (>60) mL/min BUN/Creatinine Ratio 14.0 (6-22) Glucose 177 H (70-100) mg/dL Calcium 10.0 (8.4-10.2) mg/dL Total Bilirubin 0.8 (0.2-1.3) mg/dL AST 22 (14-36) IU/L ALT 19 (<35) IU/L Alkaline Phosphatase 57 (38-126) U/L Total Creatine Kinase 46 (30-135) U/L CK-MB (CK-2) TNP CK-MB (CK-2) Rel Index TNP Troponin I < 0.012 (0.01-0.034) ng/mL NT-Pro-B Natriuret Pep 46 (<125) pg/mL Total Protein 6.9 (6.3-8.2) g/dL Albumin 4.4 (3.5-5.0) g/dL Globulin 2.5 (1.7-4.1) g/dL Albumin/Globulin Ratio 1.8 (1.0-2.8) Lipase 573 H (23-300) U/L TSH (0.47-4.68) uIU/mL Salicylates 5.0 (<20) mg/dL U Opiates 300ng/mL cut (Negative) Ur Oxycodone Screen (Negative) Urine Methadone Screen (Negative) Acetaminophen < 10 L (10-30) ug/mL Ur Barbiturates Screen (Negative) U Tricyclic Antidepress (Negative) Ur Phencyclidine Scrn (Negative) Ur Amphetamines Screen (Negative) U Methamphetamines Scrn (Negative) Ur MDMA Scrn (Ecstasy) (Negative) U Benzodiazepines Scrn (Negative) Urine Cocaine Screen (Negative) U Marijuana (THC) Screen (Negative) Ethyl Alcohol < 10 ( - 10) mg/dL SARS-CoV-2 (PCR) (Negative) 04/09/21 04/09/21 04/09/21 Range/Units 05:57 06:05 07:20 WBC (4.5-11.0) X10^3/uL RBC (4.0-5.2) X10^6/uL Hgb (12.0-16.0) g/dL Hct (36-46) % MCV (80-100) fL MCH (26-34) PG MCHC (30-36) % RDW (11.6-14.8) % Plt Count (150-400) X10^3/uL Neut % (Auto) (50-75) % Lymph % (Auto) (25-40) % Vernon % (Auto) (3-14) % Eos % (Auto) (2-4) % Baso % (Auto) (0-2) % Neut # (Auto) (6731-8359) /uL Lymph # (Auto) (4788-7782) /uL Vernon # (Auto) (0-900) /uL Eos # (Auto) (0-450) /uL Baso # (Auto) (0-100) /uL PT (10.1-12.7) SECONDS INR (0.9-1.3) APTT (26.4-36.2) SECONDS D-Dimer (<230) ng/mL Sodium (137-145) mmol/L Potassium (3.4-5.1) mmol/L Chloride (98-107) mmol/L Carbon Dioxide (22-32) mmol/L BUN (7-17) mg/dL Creatinine (0.52-1.04) mg/dL Estimated GFR (>60) mL/min BUN/Creatinine Ratio (6-22) Glucose (70-100) mg/dL Calcium (8.4-10.2) mg/dL Total Bilirubin (0.2-1.3) mg/dL AST (14-36) IU/L ALT (<35) IU/L Alkaline Phosphatase (38-126) U/L Total Creatine Kinase (30-135) U/L CK-MB (CK-2) CK-MB (CK-2) Rel Index Troponin I (0.01-0.034) ng/mL NT-Pro-B Natriuret Pep (<125) pg/mL Total Protein (6.3-8.2) g/dL Albumin (3.5-5.0) g/dL Globulin (1.7-4.1) g/dL Albumin/Globulin Ratio (1.0-2.8) Lipase (23-300) U/L TSH 2.09 (0.47-4.68) uIU/mL Salicylates (<20) mg/dL U Opiates 300ng/mL cut Negative (Negative) Ur Oxycodone Screen Negative (Negative) Urine Methadone Screen Negative (Negative) Acetaminophen (10-30) ug/mL Ur Barbiturates Screen Negative (Negative) U Tricyclic Antidepress Negative (Negative) Ur Phencyclidine Scrn Negative (Negative) Ur Amphetamines Screen Negative (Negative) U Methamphetamines Scrn Negative (Negative) Ur MDMA Scrn (Ecstasy) Negative (Negative) U Benzodiazepines Scrn Negative (Negative) Urine Cocaine Screen Negative (Negative) U Marijuana (THC) Screen Negative (Negative) Ethyl Alcohol ( - 10) mg/dL SARS-CoV-2 (PCR) Negative (Negative) 04/09/21 Range/Units 07:50 WBC (4.5-11.0) X10^3/uL RBC (4.0-5.2) X10^6/uL Hgb (12.0-16.0) g/dL Hct (36-46) % MCV (80-100) fL MCH (26-34) PG MCHC (30-36) % RDW (11.6-14.8) % Plt Count (150-400) X10^3/uL Neut % (Auto) (50-75) % Lymph % (Auto) (25-40) % Vernon % (Auto) (3-14) % Eos % (Auto) (2-4) % Baso % (Auto) (0-2) % Neut # (Auto) (9480-1402) /uL Lymph # (Auto) (8815-7555) /uL Vernon # (Auto) (0-900) /uL Eos # (Auto) (0-450) /uL Baso # (Auto) (0-100) /uL PT (10.1-12.7) SECONDS INR (0.9-1.3) APTT (26.4-36.2) SECONDS D-Dimer (<230) ng/mL Sodium (137-145) mmol/L Potassium (3.4-5.1) mmol/L Chloride (98-107) mmol/L Carbon Dioxide (22-32) mmol/L BUN (7-17) mg/dL Creatinine (0.52-1.04) mg/dL Estimated GFR (>60) mL/min BUN/Creatinine Ratio (6-22) Glucose (70-100) mg/dL Calcium (8.4-10.2) mg/dL Total Bilirubin (0.2-1.3) mg/dL AST (14-36) IU/L ALT (<35) IU/L Alkaline Phosphatase (38-126) U/L Total Creatine Kinase 43 (30-135) U/L CK-MB (CK-2) TNP CK-MB (CK-2) Rel Index TNP Troponin I < 0.012 (0.01-0.034) ng/mL NT-Pro-B Natriuret Pep (<125) pg/mL Total Protein (6.3-8.2) g/dL Albumin (3.5-5.0) g/dL Globulin (1.7-4.1) g/dL Albumin/Globulin Ratio (1.0-2.8) Lipase (23-300) U/L TSH (0.47-4.68) uIU/mL Salicylates (<20) mg/dL U Opiates 300ng/mL cut (Negative) Ur Oxycodone Screen (Negative) Urine Methadone Screen (Negative) Acetaminophen (10-30) ug/mL Ur Barbiturates Screen (Negative) U Tricyclic Antidepress (Negative) Ur Phencyclidine Scrn (Negative) Ur Amphetamines Screen (Negative) U Methamphetamines Scrn (Negative) Ur MDMA Scrn (Ecstasy) (Negative) U Benzodiazepines Scrn (Negative) Urine Cocaine Screen (Negative) U Marijuana (THC) Screen (Negative) Ethyl Alcohol ( - 10) mg/dL SARS-CoV-2 (PCR) (Negative) Imaging Data Chest x-ray: Radiologist's Impression: No acute findings. Abdominal x-ray: Radiologist's Impression: No acute findings. CT scan - head: Radiologist's Impression: no acute intracranial findings. ECG Data Attestation: I personally reviewed and interpreted this ECG as follows: Prior ECG tracings: not available for review Interpretation: AFib with a rate of 96 QRS 82 and QTC 480. No ST elevation appreciated. Patient appears to have some depression in V4 V5. Patient does not have prior EKG from our comparison. MDM Narrative Medical decision making narrative: This is a 56-year-old female comes with complaint of nausea and vomiting with some abdominal discomfort and developed chest cramping with some diaphoresis and a syncopal episode while getting up to urinate this morning. Patient does appear to be in AFib, she occasionally has intermittent elevations in her heart rate up to the 110s and once into the 130s but majority of the time in the 90s to 100 range. Patient's chest x-ray and abdominal x-ray are negative. Was ordered as patient was complaining of increasing headache here in the department with recent syncopal episodes nausea and vomiting. Labs show elevated lymphocyte count but otherwise normal CBC, 3.2 with a creatinine 1.07 which appears consistent with prior from 2019. Patient's lipase is elevated at 573 with a negative troponin and BNP and EKG which shows some ST depression in V4 5 but no other elevation but does show atrial fibrillation. Salicylate, acetaminophen in the EtOH or also included is patient had a somewhat flat affect and has had some recent emotional stressors which she does not wish to clarify fully. Covid swab is negative. Patient signed out to Dr. Kauffman while awaiting CT Head and urine sample. Patient does have a pancreatitis which could explain her abdominal and chest discomfort and nausea and vomiting but not necessarily her syncopal episode. <Walter Kauffman, DO - Last Filed: 04/09/21 08:20> Lab Data Labs: Lab Results 04/09/21 04/09/21 04/09/21 Range/Units 05:45 05:45 05:45 WBC 7.6 (4.5-11.0) X10^3/uL RBC 4.70 (4.0-5.2) X10^6/uL Hgb 14.9 (12.0-16.0) g/dL Hct 43.7 (36-46) % MCV 93.0 (80-100) fL MCH 31.6 (26-34) PG MCHC 34.0 (30-36) % RDW 13.6 (11.6-14.8) % Plt Count 248 (150-400) X10^3/uL Neut % (Auto) 41.2 L (50-75) % Lymph % (Auto) 47.6 H (25-40) % Vernon % (Auto) 9.2 (3-14) % Eos % (Auto) 1.4 L (2-4) % Baso % (Auto) 0.6 (0-2) % Neut # (Auto) 3100 (2213-2161) /uL Lymph # (Auto) 3600 (0533-3845) /uL Vernon # (Auto) 700 (0-900) /uL Eos # (Auto) 100 (0-450) /uL Baso # (Auto) 0 (0-100) /uL PT 11.0 (10.1-12.7) SECONDS INR 1.0 (0.9-1.3) APTT 28 (26.4-36.2) SECONDS D-Dimer < 200 (<230) ng/mL Sodium 137 (137-145) mmol/L Potassium 3.2 L (3.4-5.1) mmol/L Chloride 105 (98-107) mmol/L Carbon Dioxide 25 (22-32) mmol/L BUN 15 (7-17) mg/dL Creatinine 1.07 H (0.52-1.04) mg/dL Estimated GFR 52.7 L (>60) mL/min BUN/Creatinine Ratio 14.0 (6-22) Glucose 177 H (70-100) mg/dL Calcium 10.0 (8.4-10.2) mg/dL Total Bilirubin 0.8 (0.2-1.3) mg/dL AST 22 (14-36) IU/L ALT 19 (<35) IU/L Alkaline Phosphatase 57 (38-126) U/L Total Creatine Kinase 46 (30-135) U/L CK-MB (CK-2) TNP CK-MB (CK-2) Rel Index TNP Troponin I < 0.012 (0.01-0.034) ng/mL NT-Pro-B Natriuret Pep 46 (<125) pg/mL Total Protein 6.9 (6.3-8.2) g/dL Albumin 4.4 (3.5-5.0) g/dL Globulin 2.5 (1.7-4.1) g/dL Albumin/Globulin Ratio 1.8 (1.0-2.8) Lipase 573 H (23-300) U/L TSH (0.47-4.68) uIU/mL Salicylates 5.0 (<20) mg/dL U Opiates 300ng/mL cut (Negative) Ur Oxycodone Screen (Negative) Urine Methadone Screen (Negative) Acetaminophen < 10 L (10-30) ug/mL Ur Barbiturates Screen (Negative) U Tricyclic Antidepress (Negative) Ur Phencyclidine Scrn (Negative) Ur Amphetamines Screen (Negative) U Methamphetamines Scrn (Negative) Ur MDMA Scrn (Ecstasy) (Negative) U Benzodiazepines Scrn (Negative) Urine Cocaine Screen (Negative) U Marijuana (THC) Screen (Negative) Ethyl Alcohol < 10 ( - 10) mg/dL SARS-CoV-2 (PCR) (Negative) 04/09/21 04/09/21 04/09/21 Range/Units 05:57 06:05 07:20 WBC (4.5-11.0) X10^3/uL RBC (4.0-5.2) X10^6/uL Hgb (12.0-16.0) g/dL Hct (36-46) % MCV (80-100) fL MCH (26-34) PG MCHC (30-36) % RDW (11.6-14.8) % Plt Count (150-400) X10^3/uL Neut % (Auto) (50-75) % Lymph % (Auto) (25-40) % Vernon % (Auto) (3-14) % Eos % (Auto) (2-4) % Baso % (Auto) (0-2) % Neut # (Auto) (9407-3906) /uL Lymph # (Auto) (7007-5643) /uL Vernon # (Auto) (0-900) /uL Eos # (Auto) (0-450) /uL Baso # (Auto) (0-100) /uL PT (10.1-12.7) SECONDS INR (0.9-1.3) APTT (26.4-36.2) SECONDS D-Dimer (<230) ng/mL Sodium (137-145) mmol/L Potassium (3.4-5.1) mmol/L Chloride (98-107) mmol/L Carbon Dioxide (22-32) mmol/L BUN (7-17) mg/dL Creatinine (0.52-1.04) mg/dL Estimated GFR (>60) mL/min BUN/Creatinine Ratio (6-22) Glucose (70-100) mg/dL Calcium (8.4-10.2) mg/dL Total Bilirubin (0.2-1.3) mg/dL AST (14-36) IU/L ALT (<35) IU/L Alkaline Phosphatase (38-126) U/L Total Creatine Kinase (30-135) U/L CK-MB (CK-2) CK-MB (CK-2) Rel Index Troponin I (0.01-0.034) ng/mL NT-Pro-B Natriuret Pep (<125) pg/mL Total Protein (6.3-8.2) g/dL Albumin (3.5-5.0) g/dL Globulin (1.7-4.1) g/dL Albumin/Globulin Ratio (1.0-2.8) Lipase (23-300) U/L TSH 2.09 (0.47-4.68) uIU/mL Salicylates (<20) mg/dL U Opiates 300ng/mL cut Negative (Negative) Ur Oxycodone Screen Negative (Negative) Urine Methadone Screen Negative (Negative) Acetaminophen (10-30) ug/mL Ur Barbiturates Screen Negative (Negative) U Tricyclic Antidepress Negative (Negative) Ur Phencyclidine Scrn Negative (Negative) Ur Amphetamines Screen Negative (Negative) U Methamphetamines Scrn Negative (Negative) Ur MDMA Scrn (Ecstasy) Negative (Negative) U Benzodiazepines Scrn Negative (Negative) Urine Cocaine Screen Negative (Negative) U Marijuana (THC) Screen Negative (Negative) Ethyl Alcohol ( - 10) mg/dL SARS-CoV-2 (PCR) Negative (Negative) 04/09/21 Range/Units 07:50 WBC (4.5-11.0) X10^3/uL RBC (4.0-5.2) X10^6/uL Hgb (12.0-16.0) g/dL Hct (36-46) % MCV (80-100) fL MCH (26-34) PG MCHC (30-36) % RDW (11.6-14.8) % Plt Count (150-400) X10^3/uL Neut % (Auto) (50-75) % Lymph % (Auto) (25-40) % Vernon % (Auto) (3-14) % Eos % (Auto) (2-4) % Baso % (Auto) (0-2) % Neut # (Auto) (3973-7235) /uL Lymph # (Auto) (4071-1493) /uL Vernon # (Auto) (0-900) /uL Eos # (Auto) (0-450) /uL Baso # (Auto) (0-100) /uL PT (10.1-12.7) SECONDS INR (0.9-1.3) APTT (26.4-36.2) SECONDS D-Dimer (<230) ng/mL Sodium (137-145) mmol/L Potassium (3.4-5.1) mmol/L Chloride (98-107) mmol/L Carbon Dioxide (22-32) mmol/L BUN (7-17) mg/dL Creatinine (0.52-1.04) mg/dL Estimated GFR (>60) mL/min BUN/Creatinine Ratio (6-22) Glucose (70-100) mg/dL Calcium (8.4-10.2) mg/dL Total Bilirubin (0.2-1.3) mg/dL AST (14-36) IU/L ALT (<35) IU/L Alkaline Phosphatase (38-126) U/L Total Creatine Kinase 43 (30-135) U/L CK-MB (CK-2) TNP CK-MB (CK-2) Rel Index TNP Troponin I < 0.012 (0.01-0.034) ng/mL NT-Pro-B Natriuret Pep (<125) pg/mL Total Protein (6.3-8.2) g/dL Albumin (3.5-5.0) g/dL Globulin (1.7-4.1) g/dL Albumin/Globulin Ratio (1.0-2.8) Lipase (23-300) U/L TSH (0.47-4.68) uIU/mL Salicylates (<20) mg/dL U Opiates 300ng/mL cut (Negative) Ur Oxycodone Screen (Negative) Urine Methadone Screen (Negative) Acetaminophen (10-30) ug/mL Ur Barbiturates Screen (Negative) U Tricyclic Antidepress (Negative) Ur Phencyclidine Scrn (Negative) Ur Amphetamines Screen (Negative) U Methamphetamines Scrn (Negative) Ur MDMA Scrn (Ecstasy) (Negative) U Benzodiazepines Scrn (Negative) Urine Cocaine Screen (Negative) U Marijuana (THC) Screen (Negative) Ethyl Alcohol ( - 10) mg/dL SARS-CoV-2 (PCR) (Negative) Imaging Data US - abdomen: Radiologist's Impression: No acute abnormality, left kidney is not visualized MDM Narrative Medical decision making narrative: Dr kauffman: Received turned over from Dr portillo. Reviewed patient's history and physical. Do patient's labs. Ultrasound is unremarkable to include her aorta. Upon my arrival patient was in atrial fibrillation but was rate controlled with a heart rate in the 90s. She states she has never been diagnosed with atrial fibrillation in the past but has had episodes where her heart rate has been fast but these have all been self-limiting. This is been going on for several years now. Patient got up to use the restroom when she returned her heart rate was in the 120s to 130s. She was never hypotensive. She stated that she sometimes felt like her heart was beating fast here in the emergency department. Her heart rate then settled into the 110 range. She was given oral metoprolol. Her [id number] score is 1. I feel given her age, her new diagnosis of atrial fibrillation with a rapid heart rate, her syncopal episode last evening that patient warrants admission to the hospital for rate control and echocardiogram and observation. I discussed the case with Dr. Richardson with Internal Medicine who will admit. Discussed admission with the patient and her at bedside. They expressed understanding and agreement. Discharge Plan Departure Patient Disposition: Admitted as Observation Clinical Impression: Syncope, Atrial fibrillation, Acute pancreatitis Admit Date/Time: 04/09/21 08:15 Admit Provider: Patric Richardson
[2021-04-09] MEDS: ASPIRIN 81 MG CHEW TAB 324 MG PO (05:59)
[2021-04-09] MEDS: SODIUM CHLORIDE 0.9% 1,000 ML 1000 ML IV (06:01)
[2021-04-09] MEDS: LORazepam 2 MG/ML INJ 0.5 MG IV (06:01)
[2021-04-09 06:05] LABS: Add Manual Diff / Slide Review NO; Basophils Absolute Auto 0 /uL (0-100); Basophils Percent Auto 0.6 % (0-2); Eosinophils Absolute Auto 100 /uL (0-450); Eosinophils Percent Auto 1.4 % (2-4); Hematocrit 43.7 % (36-46); Hemoglobin 14.9 g/dL (12.0-16.0); Lymphocytes Absolute Auto 3600 /uL (1100-4500); Lymphocytes Percent Auto 47.6 % (25-40); Mean Corpuscular Hemoglobin 31.6 PG (26-34); Monocytes Absolute Auto 700 /uL (0-900); Monocytes Percent Auto 9.2 % (3-14); Neutrophils Absolute Auto 3100 /uL (1500-7000); Neutrophils Percent Auto 41.2 % (50-75); Platelet Count 248 X10^3/uL (150-400); Red Cell Distribution Width 13.6 % (11.6-14.8); White Blood Cell Count 7.6 X10^3/uL (4.5-11.0)
[2021-04-09 06:12] LABS: Acetaminophen < 10 ug/mL (10-30); Alanine Aminotransferase 19 IU/L (<35); Albumin 4.4 g/dL (3.5-5.0); Albumin Globulin Ratio 1.8 (1.0-2.8); Alkaline Phosphatase 57 U/L (38-126); Aspartate Aminotransferase 22 IU/L (14-36); Bilirubin Total 0.8 mg/dL (0.2-1.3); Blood Urea Nitrogen 15 mg/dL (7-17); Carbon Dioxide 25 mmol/L (22-32); Chloride 105 mmol/L (98-107); Creatine Kinase 46 U/L (30-135); Estimated Glomerular Filt Rate 52.7 mL/min (>60); Ethanol (ETOH) < 10 mg/dL; Globulin 2.5 g/dL (1.7-4.1); Glucose 177 mg/dL (70-100); HEMOLYSIS < 15 (0-50); Lipase 573 U/L (23-300); Potassium 3.2 mmol/L (3.4-5.1); Sodium 137 mmol/L (137-145); Total Protein 6.9 g/dL (6.3-8.2)
[2021-04-09 06:19] LABS: PTT Partial Thromboplastin Tim 28 SECONDS (26.4-36.2)
[2021-04-09 06:22] LABS: D Dimer < 200 ng/mL (<230)
[2021-04-09 06:23] LABS: NT-proBNP (BNP-Adult 18+) 46 pg/mL (<125); Troponin I < 0.012 ng/mL (0.01-0.034)
[2021-04-09 06:33] LABS: COVID19 -Nasal RAPID Negative (Negative)
--- NOTE | 2021-04-09 06:45 | DI.US.S_ITS ---
PROCEDURE: US ABDOMEN COMPLETE INDICATIONS: ELEVATED LIPASE; N/V TECHNIQUE: Real-time scanning was performed of the abdominal and retroperitoneal organs, with image documentation. COMPARISON: None. FINDINGS: Liver: Liver is normal in size and homogeneous in echotexture. Gallbladder: The gallbladder appears normal Biliary ducts: Intrahepatic bile ducts are non-dilated. Extrahepatic bile duct caliber measures 4.1 mm. Normal is 6-7 mm or less in diameter, or 10 mm or less post-cholecystectomy. Pancreas: Visualized portions of the pancreas are sonographically normal. Spleen: Spleen is normal in size and homogeneous in echotexture. Kidneys: The right kidney is normal in size and echotexture. Right kidney measures 11.6 cm long; left kidney is surgically absent. No hydronephrosis or nephrolithiasis. No solid masses. Aorta: Visualized aorta is normal in caliber at less than 3 cm. Iliacs: Proximal common iliac arteries are normal in caliber at less than 2.5 cm. IVC: Intrahepatic inferior vena cava is patent. Miscellaneous: No free abdominal fluid. IMPRESSION: Surgically absent left kidney, the remainder of the examination is normal. Source of current symptoms is not found. Dictated by: Codey Georges M.D. on 04/09/2021 at 8:26 Approved by: Codey Georges M.D. on 04/09/2021 at 8:28
--- NOTE | 2021-04-09 06:45 | DI.CT.S_ITS ---
PROCEDURE: CT HEAD/BRAIN WO CON INDICATIONS: n/v/chest pain, galvan, syncope TECHNIQUE: Noncontrast 4.5 mm thick angled axial sections acquired from the foramen magnum to the vertex, with coronal and sagittal reformats. For radiation dose reduction, the following was used: automated exposure control, adjustment of mA and/or kV according to patient size. COMPARISON: [facility], CT, CT HEAD/BRAIN WO CON, 04/03/2018, 21:00. FINDINGS: Image quality: Excellent. CSF spaces: Basal cisterns are patent. No extra-axial fluid collections. Ventricles are normal in size and shape. Brain: No midline shift. No intracranial masses or hemorrhage. Strong-white matter interface is normal. Skull and face: Calvarium and visualized facial bones are intact, without suspicious lesions. Sinuses: Visualized sinuses and mastoids are clear. IMPRESSION: Normal for age, source of current reported syncopal episode is not found. No trauma identified. Dictated by: Codey Georges M.D. on 04/09/2021 at 8:19 Approved by: Codey Georges M.D. on 04/09/2021 at 8:20
[2021-04-09 07:51] LABS: UR Morphine/Opiate cutoff 300 Negative (Negative); Ur Creatinine Normal (Normal); Ur Specific Gravity Normal (Normal); Urine Amphetamines Negative (Negative); Urine Barbiturates Negative (Negative); Urine Benzodiazepines Negative (Negative); Urine Cocaine Negative (Negative); Urine MDMA Negative (Negative); Urine Methadone Negative (Negative); Urine Methamphetamines Negative (Negative); Urine Oxycodone Negative (Negative); Urine Phencyclidine Negative (Negative); Urine Tetrahydrocannabinol Negative (Negative); Urine Tricyclic Antidepressant Negative (Negative); Urine pH Normal (Normal)
[2021-04-09] MEDS: METOPROLOL ER 25 MG TABLET PO (07:59)
[2021-04-09 08:08] LABS: Creatine Kinase 43 U/L (30-135)
[2021-04-09 08:21] LABS: Troponin I < 0.012 ng/mL (0.01-0.034)
--- NOTE | 2021-04-09 09:47 | PC.NURSE ---
Admit Note Pt to room 228 via stretcher from ER at about 0920. SBA into room, steady on feet. Denies any pain or discomfort, denies nausea. Pt had reportedly been in afib in the ER, when connected to ICU monitor pt noted to be in SR with rate in the 70s. Oriented to room and to call light/bed/tv controls. Call light within reach. , Adalberto, at bedside. Clothing in room closet, denies any other belongings.
--- NOTE | 2021-04-09 10:20 | DI.ECHO.S_ITS ---
[facility]---------+ [facility] +---------+ : : [address] : [address] : : : : [id number] : : : : Phone: [phone]+ Echocardiogram Report + + :Name: LEANN BARONE Study Date: 04/09/2021 Height: 62 in : :[facility] ReadingLocation: Weight: 149 lb : : Gender: Female BSA: 1.7 m2 : :: 1965 Age: 56 yrs BP: 108/69 mmHg: :Reason For Study: ATRIAL FIBRILLATION : :Ordering Physician: ASCENCION, : :LOIS Performed By: Dolores Cruz : :Referring: LOIS VEGAS : + + Interpretation Summary The left ventricle is normal in size and wall thickness. Left ventricular systolic function appears normal without focal wall motion abnormalities. The ejection fraction is estimated to be 60-65%. Diastolic parameters suggest a relaxation abnormality of the left ventricle, consistent with probable normal filling pressures. The right ventricle is normal in size and function. Pulmonary artery pressures cannot be estimated because of the lack of a measurable TR jet velocity but the IVC suggests a CVP of around 3 mmHg. The left atrial size is normal. Right atrial size is normal. There is no significant valvular heart disease. The aortic root is normal size. Procedure: A two-dimensional transthoracic echocardiogram with color flow and Doppler was performed in limited views only. The study quality was technically adequate. There is no prior echocardiogram noted for this patient. The patient was in sinus rhythm with heart rates between 58-68 bpm during the exam. Left Ventricle: The left ventricle is normal in size and wall thickness. Left ventricular systolic function appears normal without focal wall motion abnormalities. The ejection fraction is estimated to be 60-65%. Diastolic parameters suggest a relaxation abnormality of the left ventricle, consistent with probable normal filling pressures. Right Ventricle: The right ventricle is normal in size and function. Atria: The left atrial size is normal. Right atrial size is normal. There is no Doppler evidence for an interatrial shunt. Mitral Valve: The mitral valve is normal in structure and function. There is trace mitral regurgitation. Aortic Valve: The aortic valve is trileaflet. The aortic valve opens well. There is no aortic valve stenosis. No aortic regurgitation is present. Tricuspid Valve: The tricuspid valve is normal in structure and function. There is trace tricuspid regurgitation. Pulmonary artery pressures cannot be estimated because of the lack of a measurable TR jet velocity but the IVC suggests a CVP of around 3 mmHg. Pulmonic Valve: The pulmonic valve leaflets are thin and pliable; valve motion is normal. There is no pulmonic valvular regurgitation. There is no significant valvular heart disease. Great Vessels: The aortic root is normal size. The dimensions of the ascending aorta are normal. The IVC is of normal diameter and collapses greater than 50% with a sniff. This suggests a low right atrial pressure of 3 mm Hg. Pericardium/ Pleura There is no pericardial effusion. There is no pleural effusion. MMode/2D Measurements & Calculations LVIDd: 4.3 cm LVOT diam: 1.9 cm LVIDs: 3.0 cm Ao root diam: 2.6 cm FS: 30.4 % asc Aorta Diam: 2.9 cm IVSd: 0.66 cm Ao Arch Diam (Prox Trans): 2.7 cm LVPWd: 0.74 cm LV mallory. diameter/BSA (cm/m^2): 2.5 LV sys. diameter/BSA (cm/m^2): 1.8 LA A2 area: 9.5 cm2 RA long axis: 4.1 cm LA A4 area: 12.1 cm2 RA area: 11.1 cm2 LA length (vol): 3.6 cm RA vol: 25.7 ml LA vol: 26.7 ml RA : 15.2 ml/m2 LA vol index: 15.8 ml/m2 IVC diam: 0.89 cm RVD1 (basal): 2.9 cm RVD2 (mid): 2.6 cm TAPSE: 1.8 cm Doppler Measurements & Calculations Ao V2 max: 136.4 cm/sec LVOT Max Erasmo: 91.0 cm/sec Ao V2 mean: 89.7 cm/sec LV V1 max P.3 mmHg Ao max P.4 mmHg LV V1 VTI: 20.6 cm Ao mean P.7 mmHg ELIZABETH(I,D): 1.9 cm2 Ao V2 VTI: 29.5 cm ELIZABETH(V,D): 1.8 cm2 sev ratio: 0.70 ELIZABETH indexed to BSA (cm^2/m^2): 1.1 MV E max erasmo: 70.2 cm/sec PA V2 max: 75.4 cm/sec MV A max erasmo: 77.3 cm/sec PA V2 mean: 55.4 cm/sec MV E/A: 0.91 PA mean P.3 mmHg Med Peak E' Erasmo: 8.1 cm/sec PA pr(Accel): -5.1 mmHg E/E' med: 8.7 Lat Peak E' Erasmo: 9.8 cm/sec E/E' lat: 7.2 E/e' average: 7.9 MV dec time: 0.17 sec SV(LVOT): 55.9 ml Reading Physician:02:00 PM
[2021-04-09] MEDS: POTASSIUM CHLORIDE 20 MEQ TAB 40 MEQ PO (10:40)
[2021-04-09 11:11] LABS: TSH w/ Reflex to FT4 2.09 uIU/mL (0.47-4.68)
[2021-04-09] MEDS: ACETAMINOPHEN 325 MG TABLET 650 MG PO ×2 (13:47→22:36)
--- NOTE | 2021-04-09 17:19 | P.HP_ITS ---
History of Present Illness History of Present Illness Date Patient Seen: 04/09/21 Time Patient Seen: 10:19 Chief complaint: chest pain Narrative: Ms. Pedro is a 56W with PMH renal ca s/p nephrectomy who comes in after having a syncopal episode. She notes that she woke up this morning to urinate and while urinating felt hot, sweaty and then passed out and fell off the toilet. She had a mild headache afterwards. She had what she felt as a bubble in her chest. She has some nausea as well. Her only medication is a transdermal hormone patch for menopause. She has a history of palpitations and fast heart rate, but says has not been diagnosed with atrial fibrillation. She has been having recent family home stressors. She had no cough, fevers/chills, diarrhea, lower extremity swelling. In the ER, she was noted to have normal vital signs aside from tachycardia in the 110s-120s. She was noted to be in atrial fibrillation. Labs showed normal CBC, chemistry with low potassium of 3.2 and creatinine of 1.07. She had abdominal xray, ultrasound, head CT, and chest xray which showed no acute process. She had mildly elevated lipase in 500s. She was given metoprolol and asprin and admitted for further evaluation. Patient History Medical History CKD (chronic kidney disease), stage III History of kidney cancer Surgical History Anesthesia History of kidney removal (~12/29/16) History of rectocele (~09/28/17) Status post breast augmentation (~2004) Status post rhinoplasty (~03/2005) Family & Social History Family History Father Cancer of lung Grandmother Stroke Grandfather DM (diabetes mellitus screen) Family/Other Cancer Social History: household members spouse Prior Living Arrangements House Safety & Behavioral: Feels Safe in Current Yes Environment Been Physically Hurt or No Threatened By a Person Suicidal Ideation Description None Tobacco & Substance use: Smoking Status Former smoker alcohol intake current alcohol intake frequency 0-2 drinks per day Substance Use Type does not use Meds Home Medications and Allergies Home Medications Medication Instructions Recorded Confirmed Type estradiol 1 patch TRANSDERMAL WEEKLY 04/09/21 04/09/21 History Allergies Allergy/AdvReac Type Severity Reaction Status Date / Time hops [HOPS] Allergy Severe SWELLING Verified 11/01/20 10:09 OF THE THROAT (FROM BEER) Review of Systems Review of Systems Narrative: 14 systems reviewed and negative aside from HPI Exam Vital Signs (past 8 hours): - 04/09/21 09:35 04/09/21 12:00 04/09/21 15:00 Temperature 97.4 F L 98.1 F Pulse Rate 81 76 Respiratory Rate 17 19 Blood Pressure 108/69 96/65 Pulse Oximetry 97 97 97 04/09/21 16:00 Temperature 99.1 F Pulse Rate 64 Respiratory Rate 13 Blood Pressure 98/58 L Pulse Oximetry 95 Oxygen Delivery Method Room Air Oxygen Flow Rate 0 Narrative Exam Narrative: GENERAL: AAOx3, no acute distress HEENT: dry mucous membranes, PERRL NECK: trachea midline, no JVD CARDIOVASCULAR: Irregularly irregular rate and rhythm with no murmurs RESPIRATORY: clear bilaterally no wheezes, rhonchi, rales ABDOMEN: Soft, nontender. normal bowel sounds, no organomegaly EXTREMITIES: warm and well perfused with no edema NEUROLOGICAL: cn 2-12 grossly intact. Moving all extremities SKIN: No rashes noted PSYCH: pleasant, cooperative Objective Labs Result Diagrams: 04/09/21 05:45 04/09/21 05:45 Labs: Laboratory Results - last 24 hr 04/09/21 04/09/21 04/09/21 05:45 05:45 05:45 WBC 7.6 RBC 4.70 Hgb 14.9 Hct 43.7 MCV 93.0 MCH 31.6 MCHC 34.0 RDW 13.6 Plt Count 248 Neut % (Auto) 41.2 L Lymph % (Auto) 47.6 H [place] % (Auto) 9.2 Eos % (Auto) 1.4 L Baso % (Auto) 0.6 Neut # (Auto) 3100 Lymph # (Auto) 3600 [place] # (Auto) 700 Eos # (Auto) 100 Baso # (Auto) 0 PT 11.0 INR 1.0 APTT 28 D-Dimer < 200 Sodium 137 Potassium 3.2 L Chloride 105 Carbon Dioxide 25 BUN 15 Creatinine 1.07 H Estimated GFR 52.7 L BUN/Creatinine Ratio 14.0 Glucose 177 H Calcium 10.0 Total Bilirubin 0.8 AST 22 ALT 19 Alkaline Phosphatase 57 Total Creatine Kinase 46 CK-MB (CK-2) TNP CK-MB (CK-2) Rel Index TNP Troponin I < 0.012 NT-Pro-B Natriuret Pep 46 Total Protein 6.9 Albumin 4.4 Globulin 2.5 Albumin/Globulin Ratio 1.8 Lipase 573 H TSH Nasal Screen MRSA (PCR) Salicylates 5.0 U Opiates 300ng/mL cut Ur Oxycodone Screen Urine Methadone Screen Acetaminophen < 10 L Ur Barbiturates Screen U Tricyclic Antidepress Ur Phencyclidine Scrn Ur Amphetamines Screen U Methamphetamines Scrn Ur MDMA Scrn (Ecstasy) U Benzodiazepines Scrn Urine Cocaine Screen U Marijuana (THC) Screen Ethyl Alcohol < 10 SARS-CoV-2 (PCR) 04/09/21 04/09/21 04/09/21 05:57 06:05 07:20 WBC RBC Hgb Hct MCV MCH MCHC RDW Plt Count Neut % (Auto) Lymph % (Auto) [place] % (Auto) Eos % (Auto) Baso % (Auto) Neut # (Auto) Lymph # (Auto) [place] # (Auto) Eos # (Auto) Baso # (Auto) PT INR APTT D-Dimer Sodium Potassium Chloride Carbon Dioxide BUN Creatinine Estimated GFR BUN/Creatinine Ratio Glucose Calcium Total Bilirubin AST ALT Alkaline Phosphatase Total Creatine Kinase CK-MB (CK-2) CK-MB (CK-2) Rel Index Troponin I NT-Pro-B Natriuret Pep Total Protein Albumin Globulin Albumin/Globulin Ratio Lipase TSH 2.09 Nasal Screen MRSA (PCR) Salicylates U Opiates 300ng/mL cut Negative Ur Oxycodone Screen Negative Urine Methadone Screen Negative Acetaminophen Ur Barbiturates Screen Negative U Tricyclic Antidepress Negative Ur Phencyclidine Scrn Negative Ur Amphetamines Screen Negative U Methamphetamines Scrn Negative Ur MDMA Scrn (Ecstasy) Negative U Benzodiazepines Scrn Negative Urine Cocaine Screen Negative U Marijuana (THC) Screen Negative Ethyl Alcohol SARS-CoV-2 (PCR) Negative 04/09/21 04/09/21 07:50 09:40 WBC RBC Hgb Hct MCV MCH MCHC RDW Plt Count Neut % (Auto) Lymph % (Auto) [place] % (Auto) Eos % (Auto) Baso % (Auto) Neut # (Auto) Lymph # (Auto) [place] # (Auto) Eos # (Auto) Baso # (Auto) PT INR APTT D-Dimer Sodium Potassium Chloride Carbon Dioxide BUN Creatinine Estimated GFR BUN/Creatinine Ratio Glucose Calcium Total Bilirubin AST ALT Alkaline Phosphatase Total Creatine Kinase 43 CK-MB (CK-2) TNP CK-MB (CK-2) Rel Index TNP Troponin I < 0.012 NT-Pro-B Natriuret Pep Total Protein Albumin Globulin Albumin/Globulin Ratio Lipase TSH Nasal Screen MRSA (PCR) Negative for mrsa Salicylates U Opiates 300ng/mL cut Ur Oxycodone Screen Urine Methadone Screen Acetaminophen Ur Barbiturates Screen U Tricyclic Antidepress Ur Phencyclidine Scrn Ur Amphetamines Screen U Methamphetamines Scrn Ur MDMA Scrn (Ecstasy) U Benzodiazepines Scrn Urine Cocaine Screen U Marijuana (THC) Screen Ethyl Alcohol SARS-CoV-2 (PCR) Assessment & Plan Assessment & Plan narrative: Ms. Pedro is a 56W who presents with syncope found to be in atrial fibrillation with RVR. 1. Syncope, acute -etiology is likely vasovagal given history, -patient was on toilet, clinically looks hypovolemic -she had prodrome prior to passing out -less likely cardiac etiology or seizure -giving IV fluids for rehydration -echo ordered -will be monitored on telemetry for any arrhythmia 2. Atrial fibrillation with RVR -rate in 110s-120s -improved with long acting oral metoprolol -continue metop 12.5mg ER -ECHO for further evaluation 3. Atypical chest pain -no evidence of ischemia on EKG -first troponin negative -trend serial troponins -will consider possible aspirin on dc -HEART score of 1 3. Renal cancer s/p nephrectomy -stable currently -creatinine 1.07 -giving IV fluids to see if this is patient's baseline DVT ppx: lovenox 40u sc IVF: ns @ 100cc/hr DIET: cardiac COde: full, proxy is John Bello VTE Deep Vein Thrombosis/Pulmonary Embolism Present on Admission: No MIPS - Admit I confirm the patient?s Advance Care Plan is present, Code status is documented, Surrogate decision maker is in patient?s record [If Yes, STOP here]: Yes
[2021-04-09] MEDS: SODIUM CHLORIDE 0.9% 1,000 ML 100 ML IV (18:02)
[2021-04-09 18:58] LABS: Troponin I < 0.012 ng/mL (0.01-0.034)
[2021-04-10] VITALS: BP 106/55; PULSE 79; RESP 14; TEMP 37.1; O2SAT 97
[2021-04-10 04:00] VITALS: BP 108/59; PULSE 68; RESP 23; TEMP 36.6; O2SAT 97
[2021-04-10] MEDS: SODIUM CHLORIDE 0.9% 1,000 ML 100 ML IV (04:01)
[2021-04-10 04:49] LABS: Add Manual Diff / Slide Review NO; Basophils Absolute Auto 0 /uL (0-100); Basophils Percent Auto 0.7 % (0-2); Eosinophils Absolute Auto 100 /uL (0-450); Eosinophils Percent Auto 1.3 % (2-4); Hematocrit 39.3 % (36-46); Hemoglobin 12.9 g/dL (12.0-16.0); Lymphocytes Absolute Auto 1800 /uL (1100-4500); Lymphocytes Percent Auto 31.4 % (25-40); Mean Corpuscular HGB Conc 32.9 % (30-36); Mean Corpuscular Hemoglobin 30.9 PG (26-34); Mean Corpuscular Volume 94.1 fL (80-100); Monocytes Absolute Auto 400 /uL (0-900); Monocytes Percent Auto 6.5 % (3-14); Neutrophils Absolute Auto 3500 /uL (1500-7000); Neutrophils Percent Auto 60.1 % (50-75); Platelet Count 200 X10^3/uL (150-400); Red Blood Cell Count 4.18 X10^6/uL (4.0-5.2); Red Cell Distribution Width 13.6 % (11.6-14.8); White Blood Cell Count 5.8 X10^3/uL (4.5-11.0)
[2021-04-10 04:56] LABS: Blood Urea Nitrogen 20 mg/dL (7-17); Calcium 9.2 mg/dL (8.4-10.2); Carbon Dioxide 28 mmol/L (22-32); Chloride 107 mmol/L (98-107); Estimated Glomerular Filt Rate 56.9 mL/min (>60); Glucose 106 mg/dL (70-100); HEMOLYSIS 50 (0-50); Sodium 137 mmol/L (137-145)
[2021-04-10 04:58] LABS: Potassium 4.8 mmol/L (3.4-5.1)
[2021-04-10 05:09] LABS: Troponin I < 0.012 ng/mL (0.01-0.034)
[2021-04-10 08:00] VITALS: BP 104/66; PULSE 68; RESP 19; TEMP 36.5; O2SAT 97
[2021-04-10] MEDS: METOPROLOL ER 25 MG TABLET 12.5 MG PO (08:42)
[2021-04-10] MEDS: ENOXAPARIN 40 MG/0.4 ML SYRINGE SUBCUT (08:43)
--- NOTE | 2021-04-10 11:12 | PM.DS.1 ---
History of Present Illness History of Present Illness Chief complaint: chest pain Narrative: Ms. Pedro is a 56W with PMH renal ca s/p nephrectomy who comes in after having a syncopal episode. She notes that she woke up this morning to urinate and while urinating felt hot, sweaty and then passed out and fell off the toilet. She had a mild headache afterwards. She had what she felt as a bubble in her chest. She has some nausea as well. Her only medication is a transdermal hormone patch for menopause. She has a history of palpitations and fast heart rate, but says has not been diagnosed with atrial fibrillation. She has been having recent family home stressors. She had no cough, fevers/chills, diarrhea, lower extremity swelling. In the ER, she was noted to have normal vital signs aside from tachycardia in the 110s-120s. She was noted to be in atrial fibrillation. Labs showed normal CBC, chemistry with low potassium of 3.2 and creatinine of 1.07. She had abdominal xray, ultrasound, head CT, and chest xray which showed no acute process. She had mildly elevated lipase in 500s. She was given metoprolol and asprin and admitted for further evaluation. Discharge Providers Provider Date of admission: 04/09/21 08:15 Discharge Date: 04/10/21 Primary care physician: Zurdo Shay MD Discharge provider: Patric Richardson MD Summary Hospital Course Discharge Diagnosis: 1. Atrial fibrillation with RVR 2. Vasovagal syncope 3. Atypical chest pain 4. Renal cancer s/p nephrectomy Hospital Course: Ms. Pedro initially presented to the hospital after syncope and had atypical chest pain. She had a vasovagal type presentation with nausea, diaphoresis, and passing out while at the toilet. She was in atrial fibrillation with rate in 110s-120s when she presented. She received a dose of oral metoprolol and converted to sinus rhythm. She had an echocardiogram done which showed no acute issues. She had negative troponins. She was discharged on low dose metoprolol. Her CHADSVASC2 was 1, after discussion with her about risks and benefits of anticoagulation, antiplatelet, or no medicaation she decided to try low dose aspirin. She will follow up with her PCP for continued monitoring and will continue to consider if she would want to be on full anticoagulation. Exam Vital Signs (past 8 hours): - 04/10/21 04:00 04/10/21 08:00 Temperature 97.9 F 97.7 F Pulse Rate 68 68 Respiratory Rate 23 19 Blood Pressure 108/59 L 104/66 Pulse Oximetry 97 97 Oxygen Delivery Method Room Air Oxygen Flow Rate 0 Narrative Exam Narrative: GENERAL: AAOx3, no acute distress HEENT: moist mucous membranes, PERRL NECK: trachea midline, no JVD CARDIOVASCULAR: Irregularly irregular rate and rhythm with no murmurs RESPIRATORY: clear bilaterally no wheezes, rhonchi, rales ABDOMEN: Soft, nontender. normal bowel sounds, no organomegaly EXTREMITIES: warm and well perfused with no edema NEUROLOGICAL: cn 2-12 grossly intact. Moving all extremities SKIN: No rashes noted PSYCH: pleasant, cooperative Objective Labs Result Diagrams: 04/10/21 04:35 04/10/21 04:35 Labs: Laboratory Results - last 24 hr 04/09/21 04/09/21 04/10/21 05:57 18:30 04:35 WBC RBC Hgb Hct MCV MCH MCHC RDW Plt Count Neut % (Auto) Lymph % (Auto) [place] % (Auto) Eos % (Auto) Baso % (Auto) Neut # (Auto) Lymph # (Auto) [place] # (Auto) Eos # (Auto) Baso # (Auto) Sodium Potassium Chloride Carbon Dioxide BUN Creatinine Estimated GFR BUN/Creatinine Ratio Glucose Calcium Troponin I < 0.012 < 0.012 TSH 2.09 04/10/21 04/10/21 04:35 04:35 WBC 5.8 RBC 4.18 Hgb 12.9 Hct 39.3 MCV 94.1 MCH 30.9 MCHC 32.9 RDW 13.6 Plt Count 200 Neut % (Auto) 60.1 Lymph % (Auto) 31.4 [place] % (Auto) 6.5 Eos % (Auto) 1.3 L Baso % (Auto) 0.7 Neut # (Auto) 3500 Lymph # (Auto) 1800 [place] # (Auto) 400 Eos # (Auto) 100 Baso # (Auto) 0 Sodium 137 Potassium 4.8 D Chloride 107 Carbon Dioxide 28 BUN 20 H Creatinine 1.00 Estimated GFR 56.9 L BUN/Creatinine Ratio 20.0 Glucose 106 H Calcium 9.2 Troponin I TSH [facility] Medical History CKD (chronic kidney disease), stage III History of kidney cancer Surgical History Anesthesia History of kidney removal (~12/29/16) History of rectocele (~09/28/17) Status post breast augmentation (~2004) Status post rhinoplasty (~03/2005) Family History Father Cancer of lung Grandmother Stroke Grandfather DM (diabetes mellitus screen) Family/Other Cancer Social History household members: spouse Smoking Status: Former smoker alcohol intake: current substance use type: does not use Discharge Plan Discharge Plan Patient Disposition: Home Provider Discharge Comment: Ms. Pedro came in to the hospital after passing out. She was found to have an abnormal heart rhythm called atrial fibrillation. Her heart was racing. She was started on a medication metoprolol which caused her heart rate to slow, and her abnormal rhythm stopped and returned to normal. She will continue on this medication. She also will take a baby aspirin as a blood thinner to help reduce risk of stroke. She is considering starting a blood thinner like eliquis in the future, and will follow up with her doctor about this as needed. Discharge orders & Medications Prescriptions: New metoprolol succinate 25 mg Tablet Extended Release 24 Hr 12.5 mg PO DAILY Qty: 30 RF: 0 aspirin 81 mg tablet,delayed release (DR/EC) 81 mg PO DAILY Qty: 30 RF: 0 Continued estradiol 0.0375 mg/24 hr patch weekly 1 patch transdermal WEEKLY RF: 0 Medication counseling provided by Pharmacist: Yes Follow up/Referrals: Zurdo Shay MD [Primary Care Provider] - Diet/Activity/Treatments Diet: Diet as Tolerated and Regular Visit Report/Discharge Packet Instructions: DI for Atrial Fibrillation, Metoprolol, Aspirin Discharge Data Primary Care Provider: Zurdo Shay Attending Provider: Patric Richardson VTE Deep Vein Thrombosis/Pulmonary Embolism Present on Admission: No MIPS - DC The patient has current or prior documentation of left ventricular ejection fraction (LVEF) less than 40%, or moderate or severely depressed left ventricular systolic function.: No
--- NOTE | 2021-04-10 11:25 | CM.DANOTE ---
DCP Brief Assessment Note Patient is a 56 yr old female who was admitted on 04/09/21 OBS Status for Chest Pain. Pt has VDP for insurance and her PCP is Dr. Zurdo Shay. EMR was reviewed. Per MD, pt with hx of nephrectomy for renal CA and admitted for syncopal episode at home. Pt had Echo and was on tele and per MD pt's symptoms resolved and imaging was normal and pt medically stable to d/c home today with no identified barriers to discharge and outpt follow up with PCP for new medication. Bedside assessment unable to be completed as pt discharged home via spouse POV in the morning and no identified barriers to d/c. Plan: Patient discharged home via spouse POV and no SW needs. CHELA Talley
== END 2021-04-10 10:21 | disposition home or self-care (01) ==
LOC: ED 08:00 → AC 08:17 → ICU 08:33
PROVIDERS: Emergency Medicine; Admitting Provider Internal Medicine; Emergency Provider Emergency Medicine; Family Provider Family Medicine; PCP Family Medicine; Referring Provider Emergency Medicine; Visit Provider Internal Medicine
DX: I48.91 Unspecified atrial fibrillation (principal); R07.9 Chest pain, unspecified; R51.9 Headache, unspecified; R11.2 Nausea with vomiting, unspecified; R55 Syncope and collapse; W18.39XA Other fall on same level, initial encounter; N18.30 Chronic kidney disease, stage 3 unspecified; Z20.822 Contact with and (suspected) exposure to COVID-19
CPT/HCPCS: 36415; 70450; 71045; 74018; 76700; 80048; 80053; 80305; 80320; 80329; 82550; 83690; 83880; 84443; 84484; 85025; 85379; 85610; 85730; 87635; 87797; 93005; 93306; 96361; 96372; 96374; 99284; C9803; G0378; G0480; J1650; J2060

== ENCOUNTER 2021-04-15 04:21 | Emergency (ER) | payer OTHER, SELFPAY ==
[2021-04-09 09:29] VITALS: BMI 27.2
[2021-04-15 04:34] VITALS: BP 154/71; PULSE 77; RESP 18; TEMP 36.6; O2SAT 97; BMI 27.2
--- NOTE | 2021-04-15 04:48 | ED.CHESTPAIN ---
HPI - Chest Pain General Chief Complaint: Chest Pain Stated Complaint: heart racing, cramping in chest nausea ears ringin Time Seen by Provider: 04/15/21 04:22 Source: patient and family Mode of arrival: Wheelchair Limitations: no limitations History of Present Illness HPI narrative: 56-year-old female who I evaluated admitted to the hospital within the past week for atrial fibrillation and also a syncopal episode. During that time she converted with metoprolol. Had a echocardiogram that was relatively unremarkable. Was sent home on metoprolol. She has been taking this every morning. She states that over the past 24 hours and especially last evening she was having palpitations. She states she felt like her heart was beating very hard. Has time it was not associated with any lightheadedness or shortness of breath. She stated that she took her blood pressure at home and it was elevated and her heart rate was also jumping around. She was also feeling cramping on the left side of her chest. He did seem to get better when she held the area. Related Data Home Medications Medication Instructions Recorded Confirmed estradiol 1 patch TRANSDERMAL WEEKLY 04/09/21 04/09/21 Previous Rx's Medication Instructions Recorded aspirin 81 mg PO DAILY #30 tab 04/10/21 metoprolol succinate 12.5 mg PO DAILY #30 tab 04/10/21 Allergies Allergy/AdvReac Type Severity Reaction Status Date / Time hops [HOPS] Allergy Severe SWELLING Verified 11/01/20 10:09 OF THE THROAT (FROM BEER) Review of Systems Constitutional Constitutional: Denies fever(s) Cardiovascular Cardiovascular: Denies dyspnea Comments: Chest cramping Respiratory Respiratory: Denies dyspnea Gastrointestinal Gastrointestinal: Reports system reviewed and no additional complaints, except as documented Musculoskeletal Musculoskeletal: Reports system reviewed and no additional complaints, except as documented Integumentary/Breasts Skin/Breast: Reports system reviewed and no additional complaints, except as documented Hematologic/Lymphatic On Anticoagulants: No Allergic/Immunologic Allergic/Immunologic: Reports system reviewed and no additional complaints, except as documented Patient History Medical History CKD (chronic kidney disease), stage III History of kidney cancer Surgical History Anesthesia History of kidney removal (~12/29/16) History of rectocele (~09/28/17) Status post breast augmentation (~2004) Status post rhinoplasty (~03/2005) Family History Father Cancer of lung Grandmother Stroke Grandfather DM (diabetes mellitus screen) Family/Other Cancer Social History household members: spouse Smoking Status: Former smoker alcohol intake: current substance use type: does not use Smoking Status: Former smoker alcohol intake frequency: 0-2 drinks per day Substance Use Type: does not use Exam Initial Vital Signs Initial Vital Signs: Vital Signs Temperature 97.8 F 04/15/21 04:34 Pulse Rate 77 04/15/21 04:34 Respiratory Rate 18 04/15/21 04:34 Blood Pressure 154/71 H 04/15/21 04:34 Pulse Oximetry 97 04/15/21 04:34 Const General: cooperative and comfortable Limitations: mental status not altered HENMT Head: normal to inspection and normocephalic Resp Effort & Inspection: normal respiratory effort Auscultation: clear to auscultation bilaterally Cardio Rate: regular rate Rhythm: regular rhythm GI Inspection: non-distended Palpation: soft Skin Lesions: no lesions Rashes: no rashes Neuro General: patient alert and patient awake Cognition: normal cognition Speech: speech normal Extrem General: normal to inspection and capillary refill normal Psych Appearance: grossly normal and well kempt Course Orders Ordered: ED Orders 04/15/21 04:23 EKG-12 Lead Stat 04/15/21 04:44 Complete Blood Count AUTO DIFF Stat Comprehensive Metabolic Panel Stat Lipase Stat Magnesium Stat Vital Signs Vital signs: Vital Signs - 8 hr 04/15/21 04:34 Temperature 97.8 F Pulse Rate 77 Respiratory Rate 18 Blood Pressure 154/71 H Pulse Oximetry 97 MDM - Chest Pain Lab Data Attestation: I reviewed the patient's lab results. Result diagrams: 04/15/21 04:30 04/15/21 04:30 Labs: Lab Results 04/15/21 04/15/21 Range/Units 04:30 04:30 WBC 7.1 (4.5-11.0) X10^3/uL RBC 4.60 (4.0-5.2) X10^6/uL Hgb 14.5 (12.0-16.0) g/dL Hct 43.3 (36-46) % MCV 94.0 (80-100) fL MCH 31.4 (26-34) PG MCHC 33.4 (30-36) % RDW 13.4 (11.6-14.8) % Plt Count 242 (150-400) X10^3/uL Neut % (Auto) 58.4 (50-75) % Lymph % (Auto) 31.5 (25-40) % [place] % (Auto) 8.6 (3-14) % Eos % (Auto) 1.0 L (2-4) % Baso % (Auto) 0.5 (0-2) % Neut # (Auto) 4200 (9319-0583) /uL Lymph # (Auto) 2200 (6287-0322) /uL [place] # (Auto) 600 (0-900) /uL Eos # (Auto) 100 (0-450) /uL Baso # (Auto) 0 (0-100) /uL Sodium 139 (137-145) mmol/L Potassium 3.8 (3.4-5.1) mmol/L Chloride 100 (98-107) mmol/L Carbon Dioxide 32 (22-32) mmol/L BUN 21 H (7-17) mg/dL Creatinine 1.15 H (0.52-1.04) mg/dL Estimated GFR 48.5 L (>60) mL/min BUN/Creatinine Ratio 18.3 (6-22) Glucose 109 H (70-100) mg/dL Calcium 10.7 H (8.4-10.2) mg/dL Magnesium 1.9 (1.6-2.3) mg/dL Total Bilirubin 0.4 (0.2-1.3) mg/dL AST 19 (14-36) IU/L ALT 16 (<35) IU/L Alkaline Phosphatase 55 (38-126) U/L Total Protein 7.0 (6.3-8.2) g/dL Albumin 4.4 (3.5-5.0) g/dL Globulin 2.6 (1.7-4.1) g/dL Albumin/Globulin Ratio 1.7 (1.0-2.8) Lipase 266 D (23-300) U/L ECG Data Attestation: I personally reviewed and interpreted this ECG as follows: Prior ECG tracings: not available for review Interpretation: Sinus bradycardia Ventricular rate of 57 Normal axis Normal QRS Normal QTC No ST T wave changes MDM Narrative Medical decision making narrative: Patient's labs are unremarkable. The cramping in the left side of her chest is relieved when she touches the area and do suspect that this is muscular and less likely ACS. She had no ectopy here in the ER. I did discuss her symptoms with her. She potentially could be feeling poorly because she recently started on the metoprolol. She also missed a dose of her hormone patch and was late on replacing it so potentially this could be a hormonal issue. She also could be having episodes of atrial fibrillation that we are not catching on the monitor. I informed her that she needed to continue with metoprolol. She was provided reassurance. Instructed to contact her primary doctor to discuss the indications for a Holter monitor. She was given return precautions. She expressed understanding and agreement. Discharge Plan Departure Patient Disposition: Home Clinical Impression: Palpitations Instructions: DI for Palpitations Activity Restrictions/Additional Instructions: Recommend you continue all of your medications as directed and contact your primary doctor for follow-up to discuss the indications for a Holter monitor. Return to the emergency department for any new or worsening symptoms Prescriptions: No Action estradiol 0.0375 mg/24 hr patch weekly 1 patch transdermal WEEKLY RF: 0 metoprolol succinate 25 mg Tablet Extended Release 24 Hr 12.5 mg PO DAILY Qty: 30 RF: 0 aspirin 81 mg tablet,delayed release (DR/EC) 81 mg PO DAILY Qty: 30 RF: 0 Referrals: Zurdo Shay MD [Primary Care Provider] -
[2021-04-15 04:56] LABS: Alanine Aminotransferase 16 IU/L (<35); Albumin 4.4 g/dL (3.5-5.0); Albumin Globulin Ratio 1.7 (1.0-2.8); Alkaline Phosphatase 55 U/L (38-126); Aspartate Aminotransferase 19 IU/L (14-36); BUN Creatinine Ratio 18.3 (6-22); Bilirubin Total 0.4 mg/dL (0.2-1.3); Blood Urea Nitrogen 21 mg/dL (7-17); Calcium 10.7 mg/dL (8.4-10.2); Carbon Dioxide 32 mmol/L (22-32); Chloride 100 mmol/L (98-107); Estimated Glomerular Filt Rate 48.5 mL/min (>60); Globulin 2.6 g/dL (1.7-4.1); Glucose 109 mg/dL (70-100); HEMOLYSIS < 15 (0-50); Lipase 266 U/L (23-300); Magnesium 1.9 mg/dL (1.6-2.3); Potassium 3.8 mmol/L (3.4-5.1); Sodium 139 mmol/L (137-145)
[2021-04-15 04:57] LABS: Add Manual Diff / Slide Review NO; Basophils Absolute Auto 0 /uL (0-100); Basophils Percent Auto 0.5 % (0-2); Eosinophils Absolute Auto 100 /uL (0-450); Hematocrit 43.3 % (36-46); Hemoglobin 14.5 g/dL (12.0-16.0); Lymphocytes Absolute Auto 2200 /uL (1100-4500); Lymphocytes Percent Auto 31.5 % (25-40); Mean Corpuscular HGB Conc 33.4 % (30-36); Mean Corpuscular Hemoglobin 31.4 PG (26-34); Monocytes Absolute Auto 600 /uL (0-900); Monocytes Percent Auto 8.6 % (3-14); Neutrophils Absolute Auto 4200 /uL (1500-7000); Neutrophils Percent Auto 58.4 % (50-75); Platelet Count 242 X10^3/uL (150-400); Red Cell Distribution Width 13.4 % (11.6-14.8); White Blood Cell Count 7.1 X10^3/uL (4.5-11.0)
[2021-04-15 05:37] VITALS: BP 121/69; PULSE 60; RESP 18; O2SAT 97
== END 2021-04-15 05:38 | disposition home or self-care (01) ==
PROVIDERS: Emergency Provider Emergency Medicine; Family Provider Family Medicine; PCP Family Medicine
DX: R00.2 Palpitations (principal); I10 Essential (primary) hypertension
CPT/HCPCS: 36415; 80053; 83690; 83735; 85025; 93005; 93010; 99284

== ENCOUNTER → 2021-05-13 09:53 | Outpatient (CLI) | payer OTHER, SELFPAY ==
[2021-04-09 09:29] VITALS: BMI 27.2
[2021-05-13 11:50] LABS: Hematocrit 41.1 % (36-46); Hemoglobin 13.5 g/dL (12.0-16.0)
[2021-05-13 12:12] LABS: BUN Creatinine Ratio 14.9 (6-22); Blood Urea Nitrogen 15 mg/dL (7-17); Calcium 9.5 mg/dL (8.4-10.2); Carbon Dioxide 28 mmol/L (22-32); Chloride 104 mmol/L (98-107); Estimated Glomerular Filt Rate 56.3 mL/min (>60); Glucose 102 mg/dL (70-100); HEMOLYSIS < 15 (0-50); Potassium 4.2 mmol/L (3.4-5.1); Sodium 138 mmol/L (137-145)
[2021-05-13 16:12] LABS: Creatinine Urine Random 84.2 mg/dL; Protein (Total) Urine Random 7 mg/dL (0-12); Protein Creatinine Ratio Urine 0.08 GRAM/24H
[2021-05-14 07:21] LABS: Parathyroid Hormone Int 59 pg/mL (15-65)
== END ==
PROVIDERS: Family Provider Family Medicine; PCP Family Medicine; Referring Provider Student in an Organized Health Care Education/Training Program; Visit Provider Student in an Organized Health Care Education/Training Program
DX: R80.9 Proteinuria, unspecified (principal)
CPT/HCPCS: 36415; 80048; 82570; 83970; 84156; 85014; 85018

== ENCOUNTER → 2022-01-17 11:53 | Outpatient (CLI) | payer OTHER, SELFPAY ==
[2021-04-09 09:29] VITALS: BMI 27.2
[2022-01-17 12:20] LABS: Hematocrit 39.9 % (36-46); Hemoglobin 13.6 g/dL (12.0-16.0)
[2022-01-17 12:48] LABS: BUN Creatinine Ratio 18.2 (6-22); Blood Urea Nitrogen 22 mg/dL (7-17); Calcium 9.7 mg/dL (8.4-10.2); Carbon Dioxide 29 mmol/L (22-32); Chloride 106 mmol/L (98-107); Estimated Glomerular Filt Rate 45.7 mL/min (>60); Glucose 87 mg/dL (70-100); HEMOLYSIS < 15 (0-50); Potassium 4.7 mmol/L (3.4-5.1); Sodium 140 mmol/L (137-145)
[2022-01-17 16:03] LABS: Creatinine Urine Random 172.6 mg/dL
[2022-01-17 16:04] LABS: Protein (Total) Urine Random < 5 mg/dL (0-12); Protein Creatinine Ratio Urine 0.02 GRAM/24H
[2022-01-18 08:38] LABS: Parathyroid Hormone Int 55 pg/mL (15-65)
== END ==
PROVIDERS: Family Provider Family Medicine; PCP Family Medicine; Referring Provider Student in an Organized Health Care Education/Training Program; Visit Provider Student in an Organized Health Care Education/Training Program
DX: N05.9 Unspecified nephritic syndrome with unspecified morphologic changes (principal); D64.9 Anemia, unspecified; R80.9 Proteinuria, unspecified; N25.81 Secondary hyperparathyroidism of renal origin
CPT/HCPCS: 36415; 80048; 82570; 83970; 84156; 85014; 85018

== ENCOUNTER → 2022-08-26 11:14 | Outpatient (CLI) | payer OTHER, SELFPAY ==
[2021-04-09 09:29] VITALS: BMI 27.2
[2022-08-26 12:44] LABS: Hemoglobin 13.5 g/dL (12.0-16.0)
[2022-08-26 13:03] LABS: BUN Creatinine Ratio 17.5 (6-22); Blood Urea Nitrogen 20 mg/dL (7-17); Carbon Dioxide 28 mmol/L (22-32); Chloride 101 mmol/L (98-107); Estimated Glomerular Filt Rate 55 mL/min (>60); Glucose 101 mg/dL (70-100); Potassium 4.1 mmol/L (3.4-5.1); Sodium 137 mmol/L (137-145)
[2022-08-26 18:02] LABS: Creatinine Urine Random 116.1 mg/dL
[2022-08-26 18:03] LABS: Protein (Total) Urine Random < 5 mg/dL (0-12); Protein Creatinine Ratio Urine 0.04 GRAM/24H
[2022-08-27 09:27] LABS: Parathyroid Hormone Int 53 pg/mL (15-65)
== END ==
PROVIDERS: Family Provider Family Medicine; PCP Family Medicine; Referring Provider Student in an Organized Health Care Education/Training Program; Visit Provider Student in an Organized Health Care Education/Training Program
DX: N05.9 Unspecified nephritic syndrome with unspecified morphologic changes (principal); D64.9 Anemia, unspecified; N25.81 Secondary hyperparathyroidism of renal origin; R80.9 Proteinuria, unspecified
CPT/HCPCS: 36415; 80048; 82570; 83970; 84156; 85014; 85018

== ENCOUNTER → 2022-12-29 09:05 | Outpatient (CLI) | payer OTHER, SELFPAY ==
[2021-04-09 09:29] VITALS: BMI 27.2
[2022-12-29 11:07] LABS: Add Manual Diff / Slide Review NO; Basophils Absolute Auto 0 /uL (0-100); Basophils Percent Auto 0.8 % (0-2); Eosinophils Absolute Auto 0 /uL (0-450); Eosinophils Percent Auto 1.1 % (2-4); Hematocrit 40.9 % (36-46); Hemoglobin 13.7 g/dL (12.0-16.0); Lymphocytes Absolute Auto 1400 /uL (1100-4500); Lymphocytes Percent Auto 32.5 % (25-40); Mean Corpuscular HGB Conc 33.6 % (30-36); Mean Corpuscular Volume 92.4 fL (80-100); Monocytes Absolute Auto 400 /uL (0-900); Monocytes Percent Auto 8.9 % (3-14); Neutrophils Absolute Auto 2400 /uL (1500-7000); Neutrophils Percent Auto 56.7 % (50-75); Platelet Count 193 X10^3/uL (150-400); Red Blood Cell Count 4.42 X10^6/uL (4.0-5.2); Red Cell Distribution Width 13.1 % (11.6-14.8); White Blood Cell Count 4.2 X10^3/uL (4.5-11.0)
[2022-12-29 11:42] LABS: Alanine Aminotransferase 24 IU/L (<35); Albumin 4.2 g/dL (3.5-5.0); Albumin Globulin Ratio 1.9 (1.0-2.8); Alkaline Phosphatase 50 U/L (38-126); Aspartate Aminotransferase 20 IU/L (14-36); BUN Creatinine Ratio 17.1 (6-22); Bilirubin Total 0.7 mg/dL (0.2-1.3); Blood Urea Nitrogen 19 mg/dL (7-17); Calcium 9.1 mg/dL (8.4-10.2); Carbon Dioxide 28 mmol/L (22-32); Chloride 101 mmol/L (98-107); Cholesterol 180 mg/dL (140-199); Estimated Glomerular Filt Rate 57 mL/min (>60); Globulin 2.2 g/dL (1.7-4.1); Glucose 91 mg/dL (70-100); HDL Cholesterol 64 mg/dL (40-60); HEMOLYSIS < 15 (0-50); LDL Cholesterol Calculated 95 mg/dL (<100); Magnesium 1.8 mg/dL (1.6-2.3); Potassium 4.7 mmol/L (3.4-5.1); Sodium 139 mmol/L (137-145); Total Protein 6.4 g/dL (6.3-8.2); Triglycerides 104 mg/dL (35-150)
[2022-12-29 11:57] LABS: Hemoglobin A1C% w Est Avg Glu 5.5 % (4.0-6.0)
[2022-12-29 11:59] LABS: TSH w/ Reflex to FT4 1.33 uIU/mL (0.47-4.68)
== END ==
PROVIDERS: Family Provider Family Medicine; PCP Family Medicine; Referring Provider Internal Medicine Cardiovascular Disease; Visit Provider Internal Medicine Cardiovascular Disease
DX: I48.91 Unspecified atrial fibrillation (principal); E78.5 Hyperlipidemia, unspecified; Z13.1 Encounter for screening for diabetes mellitus
CPT/HCPCS: 36415; 80053; 80061; 83036; 83735; 84443; 85025

== ENCOUNTER → 2023-01-15 12:18 | Outpatient (CLI) | payer OTHER, SELFPAY ==
[2021-04-09 09:29] VITALS: BMI 27.2
[2023-01-16 18:05] LABS: Fecal Immunochemical Test Negative (Negative)
== END ==
PROVIDERS: Family Provider Family Medicine; PCP Family Medicine; Referring Provider Family Medicine; Visit Provider Family Medicine
DX: Z12.11 Encounter for screening for malignant neoplasm of colon (principal)
CPT/HCPCS: 82274

== ENCOUNTER → 2023-04-08 10:34 | Outpatient (CLI) | payer OTHER, SELFPAY ==
[2021-04-09 09:29] VITALS: BMI 27.2
--- NOTE | 2023-04-08 10:35 | DI.MG.S_ITS ---
BILATERAL DIGITAL SCREENING MAMMOGRAM 3D/2D WITH CAD WITH AUGMENTATION: 04/08/2023 CLINICAL: Patient presents for routine screening. S/P bilateral augmentation. Family history of breast cancer. Comparison is made to exams dated: 11/01/2020 mammogram, 08/11/2017 mammogram, and 05/03/2015 mammogram - [facility]. Both breasts are heterogeneously dense, which may obscure small masses (category c / 51-75% glandular tissue). Current study was also evaluated with a Computer Aided Detection (CAD) system. Bilateral breast implants are stable. No significant masses, calcifications, or other findings are seen in either breast. There has been no significant interval change. IMPRESSION: BENIGN There is no mammographic evidence of malignancy. A 1 year screening mammogram is recommended. Based on the Tyrer Cuzick model (a risk assessment model) the patient's lifetime risk is 11.5% and her 10 year risk is 4.7%. According to the ACR, ACS, and NCCN guidelines, an annual breast MRI exam along with mammogram is recommended if the patient's lifetime risk is 20% or greater. This exam was interpreted at Station ID: [id number]. NOTE: For mammograms, a report in lay terms will be sent to the patient. Approximately 15% of breast malignancies will not be visualized mammographically. In the management of a palpable breast mass, a negative mammogram must not discourage biopsy of a clinically suspicious lesion. Electronically Signed By: Charles cordoba/artemio:04/08/2023 12:35:01 letter sent: Normal Exam ACR BI-RADS Category 2: Benign Finding(s) 3342F
== END ==
PROVIDERS: Family Provider Family Medicine; PCP Family Medicine; Referring Provider Family Medicine; Visit Provider Family Medicine
DX: Z12.31 Encounter for screening mammogram for malignant neoplasm of breast (principal); Z98.82 Breast implant status; Z80.3 Family history of malignant neoplasm of breast
CPT/HCPCS: 77063; 77067

== ENCOUNTER → 2023-04-21 09:29 | Outpatient (CLI) | payer OTHER, SELFPAY ==
[2021-04-09 09:29] VITALS: BMI 27.2
[2023-04-21 11:48] LABS: Hematocrit 40.8 % (36-46); Hemoglobin 13.8 g/dL (12.0-16.0)
[2023-04-21 12:13] LABS: BUN Creatinine Ratio 18.3 (6-22); Blood Urea Nitrogen 19 mg/dL (7-17); Calcium 9.3 mg/dL (8.4-10.2); Carbon Dioxide 29 mmol/L (22-32); Chloride 100 mmol/L (98-107); Estimated Glomerular Filt Rate > 60 mL/min (>60); Glucose 97 mg/dL (80-110); HEMOLYSIS < 15 (0-50); Potassium 4.4 mmol/L (3.4-5.1); Sodium 136 mmol/L (137-145)
[2023-04-21 12:15] LABS: Creatinine Urine Random 117.3 mg/dL
[2023-04-21 12:39] LABS: Protein (Total) Urine Random < 5 mg/dL (0-12); Protein Creatinine Ratio Urine 0.04 GRAM/24H
[2023-04-23 07:17] LABS: Parathyroid Hormone Int 55 pg/mL (15-65)
== END ==
PROVIDERS: Family Provider Family Medicine; PCP Family Medicine; Referring Provider Student in an Organized Health Care Education/Training Program; Visit Provider Student in an Organized Health Care Education/Training Program
DX: N05.9 Unspecified nephritic syndrome with unspecified morphologic changes (principal); D64.9 Anemia, unspecified; R80.9 Proteinuria, unspecified; N25.81 Secondary hyperparathyroidism of renal origin
CPT/HCPCS: 36415; 80048; 82570; 83970; 84156; 85014; 85018

== ENCOUNTER → 2023-10-21 15:46 | Outpatient (CLI) | payer OTHER, SELFPAY ==
[2021-04-09 09:29] VITALS: BMI 27.2
--- NOTE | 2023-10-21 16:08 | DI.RAD.S_ITS ---
PROCEDURE: XR HIP W PEL IF DONE RT 2V INDICATIONS: chronic pain TECHNIQUE: AP pelvis with lateral view(s) of the right hip(s). COMPARISON: None. FINDINGS: Bones: No fractures or dislocations. Pelvic ring appears intact. Degenerative changes of the symphysis pubis. No suspicious bony lesions. Soft tissues: The visualized bowel gas pattern is normal. No suspicious soft tissue calcifications. IMPRESSION: No acute bony abnormality. Dictated by: Alfonso Moreira M.D. on 10/21/2023 at 17:03 Approved by: Alfonso Moreira M.D. on 10/21/2023 at 17:04
--- NOTE | 2023-10-21 16:08 | DI.RAD.S_ITS ---
PROCEDURE: XR LUMBAR SPINE MIN 4V INDICATIONS: chronic pain TECHNIQUE: 5 views of the lumbar spine were acquired, including bilateral oblique views. COMPARISON: None. FINDINGS: Bones: 5 nonrib-bearing vertebrae are present. There is normal bony alignment. No vertebral body compression fractures. No suspicious bony lesions. Soft tissues: Overlying bowel gas pattern is normal. No suspicious soft tissue calcifications. Oblique images: No pars defects. IMPRESSION: No acute bony abnormality. Dictated by: Alfonso Moreira M.D. on 10/21/2023 at 17:03 Approved by: Alfonso Moreira M.D. on 10/21/2023 at 17:03
--- NOTE | 2023-10-21 16:08 | DI.RAD.S_ITS ---
PROCEDURE: XR SHOULDER LT MIN 2V INDICATIONS: chronic pain TECHNIQUE: 3 views of the shoulder were acquired. COMPARISON: [facility], SHOULDER MINIMUM 2 VIEW LEFT, 05/20/2017, 12:12. [facility], SHOULDER MINIMUM 2 VIEW LEFT, 04/17/2014, 13:32. FINDINGS: Bones: No fractures or dislocations. No suspicious bony lesions. Visualized ribs appear intact. Coarse calcification adjacent to the supraspinatus footplate. Glenohumeral and acromioclavicular joint space narrowing with associated osteophytosis. Soft tissues: No suspicious soft tissue calcifications. IMPRESSION: Small calcification projecting lateral to the greater tuberosity, either dystrophic calcification or supraspinatus calcific tendinopathy. Moderate shoulder osteoarthritis. Dictated by: Derrick Maldonado M.D. on 10/21/2023 at 17:00 Approved by: Derrick Maldonado M.D. on 10/21/2023 at 17:01
--- NOTE | 2023-10-21 16:08 | DI.RAD.S_ITS ---
PROCEDURE: XR SHOULDER RT MIN 2V INDICATIONS: chronic pain TECHNIQUE: 3 views of the shoulder were acquired. COMPARISON: [facility], SHOULDER MINIMUM 2 VIEW LEFT, 05/20/2017, 12:12. [facility], SHOULDER MINIMUM 2 VIEW LEFT, 04/17/2014, 13:32. FINDINGS: Bones: No fractures or dislocations. No suspicious bony lesions. Visualized ribs appear intact. Glenohumeral and acromioclavicular joint space narrowing with associated osteophytosis. Soft tissues: No suspicious soft tissue calcifications. IMPRESSION: Mild to moderate shoulder osteoarthritis. Dictated by: Derrick Maldonado M.D. on 10/21/2023 at 17:01 Approved by: Derrick Maldonado M.D. on 10/21/2023 at 17:01
[2023-10-21 16:24] LABS: Add Manual Diff / Slide Review NO; Basophils Absolute Auto 0 /uL (0-100); Basophils Percent Auto 0.7 % (0-2); Eosinophils Absolute Auto 0 /uL (0-450); Eosinophils Percent Auto 0.6 % (2-4); Hematocrit 41.5 % (36-46); Hemoglobin 13.9 g/dL (12.0-16.0); Lymphocytes Absolute Auto 1600 /uL (1100-4500); Lymphocytes Percent Auto 26.2 % (25-40); Mean Corpuscular HGB Conc 33.5 % (30-36); Mean Corpuscular Hemoglobin 30.4 PG (26-34); Mean Corpuscular Volume 90.6 fL (80-100); Monocytes Absolute Auto 500 /uL (0-900); Monocytes Percent Auto 7.8 % (3-14); Neutrophils Absolute Auto 4100 /uL (1500-7000); Neutrophils Percent Auto 64.7 % (50-75); Platelet Count 218 X10^3/uL (150-400); Red Blood Cell Count 4.58 X10^6/uL (4.0-5.2); Red Cell Distribution Width 13.1 % (11.6-14.8); White Blood Cell Count 6.3 X10^3/uL (4.5-11.0)
[2023-10-21 16:54] LABS: Alanine Aminotransferase 24 IU/L (<35); Albumin 4.5 g/dL (3.5-5.0); Albumin Globulin Ratio 1.7 (1.0-2.8); Alkaline Phosphatase 53 U/L (38-126); Aspartate Aminotransferase 22 IU/L (14-36); BUN Creatinine Ratio 20.8 (6-22); Bilirubin Total 0.5 mg/dL (0.2-1.3); Blood Urea Nitrogen 20 mg/dL (7-17); C-Reactive Protein Quant 0.6 mg/dL (<1.0); Calcium 9.6 mg/dL (8.4-10.2); Carbon Dioxide 30 mmol/L (22-32); Chloride 103 mmol/L (98-107); Estimated Glomerular Filt Rate > 60 mL/min (>60); Globulin 2.6 g/dL (1.7-4.1); Glucose 92 mg/dL (80-110); HEMOLYSIS < 15 (0-50); Potassium 4.5 mmol/L (3.4-5.1); Sodium 137 mmol/L (137-145); Total Protein 7.1 g/dL (6.3-8.2)
[2023-10-21 20:12] LABS: Erythrocyte Sedimentation Rate 4 MM/HR (0-20)
== END ==
PROVIDERS: Family Provider Family Medicine; PCP Family Medicine; Referring Provider Physician Assistant; Visit Provider Physician Assistant
DX: M25.551 Pain in right hip (principal); M25.552 Pain in left hip; M25.519 Pain in unspecified shoulder; M54.50 Low back pain, unspecified
CPT/HCPCS: 36415; 72110; 73030; 73502; 80053; 85025; 85651; 86140

== ENCOUNTER → 2023-12-11 09:13 | Outpatient (CLI) | payer OTHER, SELFPAY ==
[2021-04-09 09:29] VITALS: BMI 27.2
[2023-12-11 11:00] LABS: Hematocrit 42.5 % (36-46); Hemoglobin 14.3 g/dL (12.0-16.0)
[2023-12-11 11:20] LABS: Blood Urea Nitrogen 19 mg/dL (7-17); Calcium 9.9 mg/dL (8.4-10.2); Carbon Dioxide 28 mmol/L (22-32); Chloride 102 mmol/L (98-107); Estimated Glomerular Filt Rate > 60 mL/min (>60); Glucose 87 mg/dL (80-110); HEMOLYSIS < 15 (0-50); Potassium 4.5 mmol/L (3.4-5.1); Sodium 138 mmol/L (137-145)
[2023-12-11 11:46] LABS: Creatinine Urine Random 60.2 mg/dL
[2023-12-15 12:15] LABS: Parathyroid Hormone Int 32 pg/mL (15-65)
== END ==
PROVIDERS: Family Provider Family Medicine; PCP Family Medicine; Referring Provider Student in an Organized Health Care Education/Training Program; Visit Provider Student in an Organized Health Care Education/Training Program
DX: N05.9 Unspecified nephritic syndrome with unspecified morphologic changes (principal); D70.9 Neutropenia, unspecified; D63.1 Anemia in chronic kidney disease; N25.81 Secondary hyperparathyroidism of renal origin; R80.9 Proteinuria, unspecified
CPT/HCPCS: 36415; 80048; 82570; 83970; 85014; 85018

== ENCOUNTER 2024-02-16 09:45 | Outpatient (RCR) | payer OTHER, SELFPAY ==
[2021-04-09 09:29] VITALS: BMI 27.2
--- NOTE | 2023-12-18 09:45 | PT.OIE ---
Current Diagnoses Other chronic pain (12/18/23) Pain in right shoulder (12/18/23) Pain in left shoulder (12/18/23) Pain in right hip (12/18/23) Pain in left hip (12/18/23) Low back pain, unspecified (12/18/23) Past Medical History (Last Updated 05/21/23 @ 10:06 by Zurdo Shay MD) Atrial fibrillation CKD (chronic kidney disease), stage III History of kidney cancer Past Surgical History (Last Reviewed 04/09/21 @ 17:29 by Patric Richardson MD) Anesthesia History of kidney removal (~12/29/16) History of rectocele (~09/28/17) Status post breast augmentation (~2004) Status post rhinoplasty (~03/2005) Visit Care Team Role Provider Type Zurdo Shay MD Primary Care Provider Physician Specialty: Family Practice Address: [address] [place] [address], [id number] Email: [email or web address] Fredrick Zhao MD Family Provider Non-Staff Specialty: [facility] Practice Address: [address] [place] [address], [id number] Email: [email or web address] Reshma Nguyen PA-C Attending Provider Advanced Finance Teacher Referring Provider Specialty: Medical Wound Care Address: [address] [place] [address], [id number] Email: [email or web address] Physical Therapy Initial Evaluation PT-OP-A Visit Information Start: 12/18/23 16:02 Freq: Status: Active Protocol: Document 12/18/23 09:00 DCW (Rec: 12/18/23 16:06 DCW [id number]) Out-Patient Physical Therapy Visit Information Visit Information Visit Type Initial Evaluation Visit Start Time 09:00 Visit Stop Time 09:45 Visit Number 1 Number of DINING ROOM COORDINATOR Visits 0 Evaluation Information Evaluation Date 12/18/23 PT-OP-B Current Condition Start: 12/18/23 16:02 Freq: Status: Active Protocol: Document 12/18/23 09:00 DCW (Rec: 12/21/23 09:36 [facility] [id number]) Current Condition History of Current Condition Onset Date One month history Current Complaints Left shoulder pain, limited ROM History of Current Condition Pt is a 58 year old female presenting with a one month history of left shoulder pain. 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 Notes she can barely use it. Pain with AROM, as well as pain with palpation on top and along the middle. Pt reports x-ray did note a subacrominal bone spur. Reaching forward with her left arm can bring me to tears. Lifting items as light as her purse or phone can increase pain. Does note occasional numbness into forearm and her 3rd,4th, and 5th fingers. Prior Treatments and Tests Left shoulder x-ray: IMPRESSION: Small calcification projecting lateral to the greater tuberosity, either dystrophic calcification or supraspinatus calcific tendinopathy. Moderate shoulder osteoarthritis. per Derrick Maldonado M.D. on 10/21/2023 Treatment Goals Patient/Caregiver Goals Pt's goals for treatment are to get exercises for home and return the use of her arm. Prior Functional Status Baseline Function- ADL's Independent Baseline Function- Mobility Independent Personal Factors Other Personal Factors That May Effect Hx of kidney removal, notes Therapy/Recovery with only one kidney she is very cautious with what medication she is able to take . PT-OP-C Subjective Start: 12/18/23 16:02 Freq: Status: Active Protocol: Document 12/18/23 09:00 DCW (Rec: 12/18/23 16:06 [facility] [id number]) OP-PT Subjective Patient Comments Patient Comments Pt notes hips and right shoulder are feeling significantly better at the moment, left shoulder still very problematic. PT-OP-E Functional Tests Start: 12/18/23 16:02 Freq: Status: Active Protocol: Document 12/18/23 09:00 DCW (Rec: 12/18/23 16:53 DCW [id number]) Functional Tests Maribeley's Scratch Test Action 1- Left Difficulty crossing midline Action 2- Left Forehead Action 3- Left L1 PT-OP-F Manual Assessment Start: 12/18/23 16:02 Freq: Status: Active Protocol: Document 12/18/23 09:00 DCW (Rec: 12/18/23 16:53 DCW [id number]) Manual Assessments Soft Tissue Assessment Soft Tissue Mobility Assessment Tenderness to palpation 3/4: Wincing and withdraw along L subacromial space, supraspinatus, pec Joint Mobility Assessment Joint Mobility Assessment Significant decrease in passive and active ROM PT-OP-K Range of Motion Start: 12/18/23 16:02 Freq: Status: Active Protocol: Document 12/18/23 09:00 DCW (Rec: 12/18/23 16:53 DCW [id number]) Shoulder Goniometric Range of Motion Shoulder Left Passive Shoulder ROM WFL No Testing Position Supine Flexion 120 Abduction 52 External Rotation at 0 degrees Abduction 50 Left Active Shoulder ROM WFL No Testing Position Sitting Flexion 42 Abduction 43 External Rotation at 0 degrees Abduction 45 Internal Rotation Behind Back (text) L1 PT-OP-L Special Tests Start: 12/18/23 16:02 Freq: Status: Active Protocol: Document 12/18/23 09:00 DCW (Rec: 12/18/23 16:53 DCW [id number]) Special Tests Shoulder Special Tests Passive ER Rotator Cuff Test Results Negative Lift-Off Rotator Cuff Test Results Positive L Reese Albaro Impingement Test Results Positive L Grind Labrum Test Results Positive L Empty Can Test Results Unable to position Drop Arm Rotator Cuff Test Results Positive L Belly Press Test Results Negative Apprehension Test Test Results Positive L AC Joint Compression Test Results Positive L pain PT-OP-M Strength Start: 12/18/23 16:02 Freq: Status: Active Protocol: Document 12/18/23 09:00 DCW (Rec: 12/18/23 16:53 DCW [id number]) Shoulder Strength Shoulder Manual Muscle Testing Left Flexion 2- Poor- Abduction (C5) 2- Poor- External Rotation 3 Fair Internal Rotation 3- Fair- PT-OP-Q Treatments Start: 12/18/23 16:02 Freq: Status: Active Protocol: Document 12/18/23 09:00 DCW (Rec: 12/18/23 16:06 DCW [id number]) Therapeutic Exercises Standing Exercises Wall walk Standing Exercise Name Wall walk Side left Comments Flexion Pendulums Standing Exercise Name L shoulder pendulums PT-OP-T Assessment and Plan Start: 12/18/23 16:02 Freq: Status: Active Protocol: Document 12/18/23 09:00 DCW (Rec: 12/21/23 17:43 [facility] [id number]) Physical Therapy Assessment Rehab Potential Rehabilitation Potential Fair Evaluation Complexity Number of Personal Factors/Comorbidities 3 or More Number of Body Systems Impaired 4 or More Clinical Presentation at Evaluation Unstable Impairments Impairments Activity Tolerance,Functional Activities,Functional Mobility ,Pain,ROM,Soft Tissue Mobility ,Strength,Tone Goals Three Impairment Pt unable to lift her purse using her left arm Usp Goal (LTG) Pt to decrease pain to <3/10 in left shoulder in order to enable her to lift objects 10 pounds or less LTG Duration 02/16/24 Two Impairment Severely limited left shoulder AROM flexion (42?) and abduction (43?) Physical Therapy Aides Teacher Goal (LTG) Pt to demonstrate increased left shoulder flexion and abduction AROM to at least 120 ? in both planes in order to improve ability to put away household items overhead. LTG Duration 02/16/24 One Impairment Pt does not have an appropriate home exercise program Short Term Goal (STG) Pt to be independent and compliant with an appropriate HEP STG Duration 01/16/24 Assessment Summary Assessment Pt presents with signs and symptoms fairly consistent with significant soft tissue injury in left shoulder. Has been bothering her >1 month, but is still very tender with any palpation or positioning of her arm. Difficult to DDx specific injury, as nearly all special testing was positive at the time of her initial evaluation. Based on general location of most consistent pain, potential is higher for supraspinatus involvement vs labral involvement due to sensations of instability and more global pain throughout shoulder. If pt doesn't respond to conservative treatment, would strongly recommend further advanced imaging to help rule in/rule out potential DDx. May benefit from general strengthening and AROM of left shoulder as tolerated. Physical Therapy Plan Frequency and Duration Frequency of Treatment 2x/Week Plan of Care Start Date 12/18/23 Plan of Care End Date 02/16/24 Therapeutic Interventions Therapeutic Interventions Home Exercise Program,Joint Mobilizations,Manual Therapy, Neuromuscular Re-education, Patient/Caregiver Education, Self-Care/Home Management,Soft Tissue Mobilization, Therapeutic Activities, Therapeutic Exercises Modalities Cold Pack/Ice Massage,Electric Stimulation,Hot Packs, Ultrasound Next Visit Focus/Plan Next Note Type Treatment Note Next Visit Plan Shoulder mobility, strengthening
--- NOTE | 2023-12-18 09:45 | PT.OPPOC ---
Physical, Occupational & Speech Therapy At [facility] Current Diagnoses Other chronic pain (12/18/23) Pain in right shoulder (12/18/23) Pain in left shoulder (12/18/23) Pain in right hip (12/18/23) Pain in left hip (12/18/23) Low back pain, unspecified (12/18/23) Visit Care Team Role Provider Type Zurdo Shay MD Primary Care Provider Physician Specialty: Family Practice Address: [address] [place] [address], [id number] Email: [email or web address] Fredrick Zhao MD Family Provider Non-Staff Specialty: [facility] Address: [address] [place] [address], [facility] Email: [email or web address] Reshma Nguyen PA-C Attending Provider [employer] Building Supervisor Referring Provider Specialty: Medical Wound Care Address: [address] [place] [address], [id number] Email: [email or web address] Plan Of Care PT-OP-T Assessment and Plan Start: 12/18/23 16:02 Freq: Status: Active Protocol: Document 12/18/23 09:00 DCW (Rec: 12/21/23 17:43 DCW [id number]) Physical Therapy Assessment Rehab Potential Rehabilitation Potential Fair Evaluation Complexity Number of Personal Factors/Comorbidities 3 or More Number of Body Systems Impaired 4 or More Clinical Presentation at Evaluation Unstable Impairments Impairments Activity Tolerance,Functional Activities,Functional Mobility ,Pain,ROM,Soft Tissue Mobility ,Strength,Tone Goals Three Impairment Pt unable to lift her purse using her left arm Splash Line Operator Goal (LTG) Pt to decrease pain to <3/10 in left shoulder in order to enable her to lift objects 10 pounds or less LTG Duration 02/16/24 Two Impairment Severely limited left shoulder AROM flexion (42?) and abduction (43?) [facility]ci Goal (LTG) Pt to demonstrate increased left shoulder flexion and abduction AROM to at least 120 ? in both planes in order to improve ability to put away household items overhead. LTG Duration 02/16/24 One Impairment Pt does not have an appropriate home exercise program Short Term Goal (STG) Pt to be independent and compliant with an appropriate HEP STG Duration 01/16/24 Assessment Summary Assessment Pt presents with signs and symptoms fairly consistent with significant soft tissue injury in left shoulder. Has been bothering her >1 month, but is still very tender with any palpation or positioning of her arm. Difficult to DDx specific injury, as nearly all special testing was positive at the time of her initial evaluation. Based on general location of most consistent pain, potential is higher for supraspinatus involvement vs labral involvement due to sensations of instability and more global pain throughout shoulder. If pt doesn't respond to conservative treatment, would strongly recommend further advanced imaging to help rule in/rule out potential DDx. May benefit from general strengthening and AROM of left shoulder as tolerated. Physical Therapy Plan Frequency and Duration Frequency of Treatment 2x/Week Plan of Care Start Date 12/18/23 Plan of Care End Date 02/16/24 Therapeutic Interventions Therapeutic Interventions Home Exercise Program,Joint Mobilizations,Manual Therapy, Neuromuscular Re-education, Patient/Caregiver Education, Self-Care/Home Management,Soft Tissue Mobilization, Therapeutic Activities, Therapeutic Exercises Modalities Cold Pack/Ice Massage,Electric Stimulation,Hot Packs, Ultrasound Next Visit Focus/Plan Next Note Type Treatment Note Next Visit Plan Shoulder mobility, strengthening Plan of Care Dates Plan of Care Start Date 12/18/23 Plan of Care End Date 02/16/24 Electronically Signed by: Jose C Martinez, PT 12/21/23 2978 If you are in agreement with this Plan of Care, please return a signed and dated copy. I have reviewed this Plan of Care and certify that the skilled therapy services above are required to meet the patient?s needs. Physician Signature Date Printed Name and Credentials Clinical Instructor Signature Printed Name and Credentials
--- NOTE | 2023-12-21 17:43 | PT.OIE ---
Current Diagnoses Other chronic pain (12/18/23) Pain in right shoulder (12/18/23) Pain in left shoulder (12/18/23) Pain in right hip (12/18/23) Pain in left hip (12/18/23) Low back pain, unspecified (12/18/23) Past Medical History (Last Updated 05/21/23 @ 10:06 by Zurdo Shay MD) Atrial fibrillation CKD (chronic kidney disease), stage III History of kidney cancer Past Surgical History (Last Reviewed 04/09/21 @ 17:29 by Patric Richardson MD) Anesthesia History of kidney removal (~12/29/16) History of rectocele (~09/28/17) Status post breast augmentation (~2004) Status post rhinoplasty (~03/2005) Visit Care Team Role Provider Type Zurdo Shay MD Primary Care Provider Physician Specialty: Family Practice Address: [address] [place] [address], [id number] Email: [email or web address] Fredrick Zhao MD Family Provider Non-Staff Specialty: [facility] Practice Address: [address] [place] [address], [id number] Email: 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 Physical Therapy Initial Evaluation PT-OP-A Visit Information Start: 12/18/23 16:02 Freq: Status: Active Protocol: Document 12/18/23 09:00 DCW (Rec: 12/18/23 16:06 DCW [id number]) Out-Patient Physical Therapy Visit Information Visit Information Visit Type Initial Evaluation Visit Start Time 09:00 Visit Stop Time 09:45 Visit Number 1 Number of SLIVER LAP TENDER Visits 0 Evaluation Information Evaluation Date 12/18/23 PT-OP-B Current Condition Start: 12/18/23 16:02 Freq: Status: Active Protocol: Document 12/18/23 09:00 DCW (Rec: 12/21/23 09:36 [facility] [id number]) Current Condition History of Current Condition Onset Date One month history Current Complaints Left shoulder pain, limited ROM History of Current Condition Pt is a 58 year old female presenting with a one month history of left shoulder pain. 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 Notes she can barely use it. Pain with AROM, as well as pain with palpation on top and along the middle. Pt reports x-ray did note a subacrominal bone spur. Reaching forward with her left arm can bring me to tears. Lifting items as light as her purse or phone can increase pain. Does note occasional numbness into forearm and her 3rd,4th, and 5th fingers. Prior Treatments and Tests Left shoulder x-ray: IMPRESSION: Small calcification projecting lateral to the greater tuberosity, either dystrophic calcification or supraspinatus calcific tendinopathy. Moderate shoulder osteoarthritis. per Derrick Maldonado M.D. on 10/21/2023 Treatment Goals Patient/Caregiver Goals Pt's goals for treatment are to get exercises for home and return the use of her arm. Prior Functional Status Baseline Function- ADL's Independent Baseline Function- Mobility Independent Personal Factors Other Personal Factors That May Effect Hx of kidney removal, notes Therapy/Recovery with only one kidney she is very cautious with what medication she is able to take . PT-OP-C Subjective Start: 12/18/23 16:02 Freq: Status: Active Protocol: Document 12/18/23 09:00 DCW (Rec: 12/18/23 16:06 [facility] [id number]) OP-PT Subjective Patient Comments Patient Comments Pt notes hips and right shoulder are feeling significantly better at the moment, left shoulder still very problematic. PT-OP-E Functional Tests Start: 12/18/23 16:02 Freq: Status: Active Protocol: Document 12/18/23 09:00 DCW (Rec: 12/18/23 16:53 DCW [id number]) Functional Tests Maribeley's Scratch Test Action 1- Left Difficulty crossing midline Action 2- Left Forehead Action 3- Left L1 PT-OP-F Manual Assessment Start: 12/18/23 16:02 Freq: Status: Active Protocol: Document 12/18/23 09:00 DCW (Rec: 12/18/23 16:53 DCW [id number]) Manual Assessments Soft Tissue Assessment Soft Tissue Mobility Assessment Tenderness to palpation 3/4: Wincing and withdraw along L subacromial space, supraspinatus, pec Joint Mobility Assessment Joint Mobility Assessment Significant decrease in passive and active ROM PT-OP-K Range of Motion Start: 12/18/23 16:02 Freq: Status: Active Protocol: Document 12/18/23 09:00 DCW (Rec: 12/18/23 16:53 DCW [id number]) Shoulder Goniometric Range of Motion Shoulder Left Passive Shoulder ROM WFL No Testing Position Supine Flexion 120 Abduction 52 External Rotation at 0 degrees Abduction 50 Left Active Shoulder ROM WFL No Testing Position Sitting Flexion 42 Abduction 43 External Rotation at 0 degrees Abduction 45 Internal Rotation Behind Back (text) L1 PT-OP-L Special Tests Start: 12/18/23 16:02 Freq: Status: Active Protocol: Document 12/18/23 09:00 DCW (Rec: 12/18/23 16:53 DCW [id number]) Special Tests Shoulder Special Tests Passive ER Rotator Cuff Test Results Negative Lift-Off Rotator Cuff Test Results Positive L Reese Albaro Impingement Test Results Positive L Grind Labrum Test Results Positive L Empty Can Test Results Unable to position Drop Arm Rotator Cuff Test Results Positive L Belly Press Test Results Negative Apprehension Test Test Results Positive L AC Joint Compression Test Results Positive L pain PT-OP-M Strength Start: 12/18/23 16:02 Freq: Status: Active Protocol: Document 12/18/23 09:00 DCW (Rec: 12/18/23 16:53 DCW [id number]) Shoulder Strength Shoulder Manual Muscle Testing Left Flexion 2- Poor- Abduction (C5) 2- Poor- External Rotation 3 Fair Internal Rotation 3- Fair- PT-OP-Q Treatments Start: 12/18/23 16:02 Freq: Status: Active Protocol: Document 12/18/23 09:00 DCW (Rec: 12/18/23 16:06 DCW [id number]) Therapeutic Exercises Standing Exercises Wall walk Standing Exercise Name Wall walk Side left Comments Flexion Pendulums Standing Exercise Name L shoulder pendulums PT-OP-T Assessment and Plan Start: 12/18/23 16:02 Freq: Status: Active Protocol: Document 12/18/23 09:00 DCW (Rec: 12/21/23 17:43 [facility] [id number]) Physical Therapy Assessment Rehab Potential Rehabilitation Potential Fair Evaluation Complexity Number of Personal Factors/Comorbidities 3 or More Number of Body Systems Impaired 4 or More Clinical Presentation at Evaluation Unstable Impairments Impairments Activity Tolerance,Functional Activities,Functional Mobility ,Pain,ROM,Soft Tissue Mobility ,Strength,Tone Goals Three Impairment Pt unable to lift her purse using her left arm Jail Goal (LTG) Pt to decrease pain to <3/10 in left shoulder in order to enable her to lift objects 10 pounds or less LTG Duration 02/16/24 Two Impairment Severely limited left shoulder AROM flexion (42?) and abduction (43?) Beautician Apprentice Goal (LTG) Pt to demonstrate increased left shoulder flexion and abduction AROM to at least 120 ? in both planes in order to improve ability to put away household items overhead. LTG Duration 02/16/24 One Impairment Pt does not have an appropriate home exercise program Short Term Goal (STG) Pt to be independent and compliant with an appropriate HEP STG Duration 01/16/24 Assessment Summary Assessment Pt presents with signs and symptoms fairly consistent with significant soft tissue injury in left shoulder. Has been bothering her >1 month, but is still very tender with any palpation or positioning of her arm. Difficult to DDx specific injury, as nearly all special testing was positive at the time of her initial evaluation. Based on general location of most consistent pain, potential is higher for supraspinatus involvement vs labral involvement due to sensations of instability and more global pain throughout shoulder. If pt doesn't respond to conservative treatment, would strongly recommend further advanced imaging to help rule in/rule out potential DDx. May benefit from general strengthening and AROM of left shoulder as tolerated. Physical Therapy Plan Frequency and Duration Frequency of Treatment 2x/Week Plan of Care Start Date 12/18/23 Plan of Care End Date 02/16/24 Therapeutic Interventions Therapeutic Interventions Home Exercise Program,Joint Mobilizations,Manual Therapy, Neuromuscular Re-education, Patient/Caregiver Education, Self-Care/Home Management,Soft Tissue Mobilization, Therapeutic Activities, Therapeutic Exercises Modalities Cold Pack/Ice Massage,Electric Stimulation,Hot Packs, Ultrasound Next Visit Focus/Plan Next Note Type Treatment Note Next Visit Plan Shoulder mobility, strengthening
--- NOTE | 2023-12-24 15:23 | PT.OTN ---
Current Diagnoses Other chronic pain (12/24/23) Pain in right shoulder (12/24/23) Pain in left shoulder (12/24/23) Pain in right hip (12/24/23) Pain in left hip (12/24/23) Low back pain, unspecified (12/24/23) Physical Therapy Treatment Note PT-OP-A Visit Information Start: 12/18/23 16:02 Freq: Status: Active Protocol: Document 12/24/23 14:30 DCW (Rec: 12/24/23 15:23 DCW [id number]) Out-Patient Physical Therapy Visit Information Visit Information Visit Type Treatment Note Visit Start Time 14:30 Visit Stop Time 15:15 Visit Number 2 Number of JUVENILE JUSTICE OFFICER Visits 0 Evaluation Information Evaluation Date 12/18/23 PT-OP-B Current Condition Start: 12/18/23 16:02 Freq: Status: Active Protocol: Document 12/18/23 09:00 DCW (Rec: 12/21/23 09:36 DCW [id number]) Current Condition History of Current Condition Onset Date One month history Current Complaints Left shoulder pain, limited ROM History of Current Condition Pt is a 58 year old female presenting with a one month history of left shoulder pain. 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 Notes she can barely use it. Pain with AROM, as well as pain with palpation on top and along the middle. Pt reports x-ray did note a subacrominal bone spur. Reaching forward with her left arm can bring me to tears. Lifting items as light as her purse or phone can increase pain. Does note occasional numbness into forearm and her 3rd,4th, and 5th fingers. Prior Treatments and Tests Left shoulder x-ray: IMPRESSION: Small calcification projecting lateral to the greater tuberosity, either dystrophic calcification or supraspinatus calcific tendinopathy. Moderate shoulder osteoarthritis. per Derrick Maldonado M.D. on 10/21/2023 Treatment Goals Patient/Caregiver Goals Pt's goals for treatment are to get exercises for home and return the use of her arm. Prior Functional Status Baseline Function- ADL's Independent Baseline Function- Mobility Independent Personal Factors Other Personal Factors That May Effect Hx of kidney removal, notes Therapy/Recovery with only one kidney she is very cautious with what medication she is able to take . PT-OP-C Subjective Start: 12/18/23 16:02 Freq: Status: Active Protocol: Document 12/24/23 14:30 DCW (Rec: 12/24/23 15:23 DCW [id number]) OP-PT Subjective Patient Comments Patient Comments Notes pain is most significant along lateral shoulder/ anterior upper arm PT-OP-E Functional Tests Start: 12/18/23 16:02 Freq: Status: Active Protocol: Document 12/18/23 09:00 DCW (Rec: 12/18/23 16:53 DCW [id number]) Functional Tests Apley's Scratch Test Action 1- Left Difficulty crossing midline Action 2- Left Forehead Action 3- Left L1 PT-OP-F Manual Assessment Start: 12/18/23 16:02 Freq: Status: Active Protocol: Document 12/18/23 09:00 DCW (Rec: 12/18/23 16:53 DCW [id number]) Manual Assessments Soft Tissue Assessment Soft Tissue Mobility Assessment Tenderness to palpation 3/4: Wincing and withdraw along L subacromial space, supraspinatus, pec Joint Mobility Assessment Joint Mobility Assessment Significant decrease in passive and active ROM PT-OP-K Range of Motion Start: 12/18/23 16:02 Freq: Status: Active Protocol: Document 12/18/23 09:00 DCW (Rec: 12/18/23 16:53 DCW [id number]) Shoulder Goniometric Range of Motion Shoulder Left Passive Shoulder ROM WFL No Testing Position Supine Flexion 120 Abduction 52 External Rotation at 0 degrees Abduction 50 Left Active Shoulder ROM WFL No Testing Position Sitting Flexion 42 Abduction 43 External Rotation at 0 degrees Abduction 45 Internal Rotation Behind Back (text) L1 PT-OP-L Special Tests Start: 12/18/23 16:02 Freq: Status: Active Protocol: Document 12/18/23 09:00 DCW (Rec: 12/18/23 16:53 DCW [id number]) Special Tests Shoulder Special Tests Passive ER Rotator Cuff Test Results Negative Lift-Off Rotator Cuff Test Results Positive L Reese Albaro Impingement Test Results Positive L Grind Labrum Test Results Positive L Empty Can Test Results Unable to position Drop Arm Rotator Cuff Test Results Positive L Belly Press Test Results Negative Apprehension Test Test Results Positive L AC Joint Compression Test Results Positive L pain PT-OP-M Strength Start: 12/18/23 16:02 Freq: Status: Active Protocol: Document 12/18/23 09:00 DCW (Rec: 12/18/23 16:53 DCW [id number]) Shoulder Strength Shoulder Manual Muscle Testing Left Flexion 2- Poor- Abduction (C5) 2- Poor- External Rotation 3 Fair Internal Rotation 3- Fair- PT-OP-Q Treatments Start: 12/18/23 16:02 Freq: Status: Active Protocol: Document 12/24/23 14:30 DCW (Rec: 12/24/23 15:23 DCW [id number]) Cardio Equipment Upper Body Ergometer (UBE) Duration (Minutes) 5 RPM 10 Seat Position 12 Height 3 Therapeutic Exercises Supine Exercises Serratus Punch Supine Exercise Name Serratus punch /c PVC Flexion Supine Exercise Name Supine shoulder flexion /c PVC Side bilateral Sitting Exercises PROM Sitting Exercise Name PROM Pulleys Side bilateral Comments Flexion, Abduction Standing Exercises AAROM Standing Exercise Name Flexion, Abduction /c PVC Manual Therapy Treatment Soft Tissue Mobilization Periscapular Body Location L Periscapular musculature Mobilization Type Sustained Pressure,Trigger Point Release Body Position Supine Other Other Manual Treatments Therapist-driven PROM PT-OP-T Assessment and Plan Start: 12/18/23 16:02 Freq: Status: Active Protocol: Document 12/24/23 14:30 DCW (Rec: 12/24/23 15:23 DCW [id number]) Physical Therapy Assessment Impairments Impairments Activity Tolerance,Functional Activities,Functional Mobility ,Pain,ROM,Soft Tissue Mobility ,Strength,Tone Goals Three Impairment Pt unable to lift her purse using her left arm Gun Numberer Goal (LTG) Pt to decrease pain to <3/10 in left shoulder in order to enable her to lift objects 10 pounds or less LTG Duration 02/16/24 Two Impairment Severely limited left shoulder AROM flexion (42?) and abduction (43?) Detention Goal (LTG) Pt to demonstrate increased left shoulder flexion and abduction AROM to at least 120 ? in both planes in order to improve ability to put away household items overhead. LTG Duration 02/16/24 One Impairment Pt does not have an appropriate home exercise program Short Term Goal (STG) Pt to be independent and compliant with an appropriate HEP STG Duration 01/16/24 Assessment Summary Assessment Good response to PROM/AAROM today, able to tolerate increasing ROM, especially in flexion, with repetition. Still fairly sore with most mobility, most so in abduction . Continue to focus on shoulder stability, ROM, and strength. Physical Therapy Plan Frequency and Duration Frequency of Treatment 2x/Week Plan of Care Start Date 12/18/23 Plan of Care End Date 02/16/24 Therapeutic Interventions Therapeutic Interventions Home Exercise Program,Joint Mobilizations,Manual Therapy, Neuromuscular Re-education, Patient/Caregiver Education, Self-Care/Home Management,Soft Tissue Mobilization, Therapeutic Activities, Therapeutic Exercises Modalities Cold Pack/Ice Massage,Electric Stimulation,Hot Packs, Ultrasound Next Visit Focus/Plan Next Note Type Treatment Note Next Visit Plan Shoulder mobility, strengthening
--- NOTE | 2023-12-30 12:05 | PT.OTN ---
Current Diagnoses Other chronic pain (12/30/23) Pain in right shoulder (12/30/23) Pain in left shoulder (12/30/23) Pain in right hip (12/30/23) Pain in left hip (12/30/23) Low back pain, unspecified (12/30/23) Physical Therapy Treatment Note PT-OP-A Visit Information Start: 12/18/23 16:02 Freq: Status: Active Protocol: Document 12/30/23 09:29 AB (Rec: 12/30/23 12:05 AB [id number]) Out-Patient Physical Therapy Visit Information Visit Information Visit Type Treatment Note Visit Note Access Code [email or web address] Visit Start Time 10:37 Visit Stop Time 11:29 Visit Number 3 Number of ASSEMBLER SEMICONDUCTOR Visits 1 Evaluation Information Evaluation Date 12/18/23 PT-OP-B Current Condition Start: 12/18/23 16:02 Freq: Status: Active Protocol: Document 12/18/23 09:00 DCW (Rec: 12/21/23 09:36 DCW [id number]) Current Condition History of Current Condition Onset Date One month history Current Complaints Left shoulder pain, limited ROM History of Current Condition Pt is a 58 year old female presenting with a one month history of left shoulder pain. 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 Notes she can barely use it. Pain with AROM, as well as pain with palpation on top and along the middle. Pt reports x-ray did note a subacrominal bone spur. Reaching forward with her left arm can bring me to tears. Lifting items as light as her purse or phone can increase pain. Does note occasional numbness into forearm and her 3rd,4th, and 5th fingers. Prior Treatments and Tests Left shoulder x-ray: IMPRESSION: Small calcification projecting lateral to the greater tuberosity, either dystrophic calcification or supraspinatus calcific tendinopathy. Moderate shoulder osteoarthritis. per Derrick Maldonado M.D. on 10/21/2023 Treatment Goals Patient/Caregiver Goals Pt's goals for treatment are to get exercises for home and return the use of her arm. Prior Functional Status Baseline Function- ADL's Independent Baseline Function- Mobility Independent Personal Factors Other Personal Factors That May Effect Hx of kidney removal, notes Therapy/Recovery with only one kidney she is very cautious with what medication she is able to take . PT-OP-C Subjective Start: 12/18/23 16:02 Freq: Status: Active Protocol: Document 12/30/23 09:29 AB (Rec: 12/30/23 12:05 AB [id number]) OP-PT Subjective Patient Comments Patient Comments Maira reports the shoulder is worse as she went to reach for something and jolted it. Also, reports unable to lift coffee cup without pain. Patient rates left shoulder pain 4/10 at rest 7-8/10 with movement. Patient reports difficult with ( gestures ) dowel ER and abduction exercises. PT-OP-E Functional Tests Start: 12/18/23 16:02 Freq: Status: Active Protocol: Document 12/18/23 09:00 DCW (Rec: 12/18/23 16:53 DCW [id number]) Functional Tests Apley's Scratch Test Action 1- Left Difficulty crossing midline Action 2- Left Forehead Action 3- Left L1 PT-OP-F Manual Assessment Start: 12/18/23 16:02 Freq: Status: Active Protocol: Document 12/18/23 09:00 DCW (Rec: 12/18/23 16:53 DCW [id number]) Manual Assessments Soft Tissue Assessment Soft Tissue Mobility Assessment Tenderness to palpation 3/4: Wincing and withdraw along L subacromial space, supraspinatus, pec Joint Mobility Assessment Joint Mobility Assessment Significant decrease in passive and active ROM PT-OP-K Range of Motion Start: 12/18/23 16:02 Freq: Status: Active Protocol: Document 12/18/23 09:00 DCW (Rec: 12/18/23 16:53 DCW [id number]) Shoulder Goniometric Range of Motion Shoulder Left Passive Shoulder ROM WFL No Testing Position Supine Flexion 120 Abduction 52 External Rotation at 0 degrees Abduction 50 Left Active Shoulder ROM WFL No Testing Position Sitting Flexion 42 Abduction 43 External Rotation at 0 degrees Abduction 45 Internal Rotation Behind Back (text) L1 PT-OP-L Special Tests Start: 12/18/23 16:02 Freq: Status: Active Protocol: Document 12/18/23 09:00 DCW (Rec: 12/18/23 16:53 DCW [id number]) Special Tests Shoulder Special Tests Passive ER Rotator Cuff Test Results Negative Lift-Off Rotator Cuff Test Results Positive L Reese Albaro Impingement Test Results Positive L Grind Labrum Test Results Positive L Empty Can Test Results Unable to position Drop Arm Rotator Cuff Test Results Positive L Belly Press Test Results Negative Apprehension Test Test Results Positive L AC Joint Compression Test Results Positive L pain PT-OP-M Strength Start: 12/18/23 16:02 Freq: Status: Active Protocol: Document 12/18/23 09:00 DCW (Rec: 12/18/23 16:53 DCW [id number]) Shoulder Strength Shoulder Manual Muscle Testing Left Flexion 2- Poor- Abduction (C5) 2- Poor- External Rotation 3 Fair Internal Rotation 3- Fair- PT-OP-Q Treatments Start: 12/18/23 16:02 Freq: Status: Active Protocol: Document 12/30/23 09:29 AB (Rec: 12/30/23 12:05 AB [id number]) Therapeutic Exercises Supine Exercises pec stretch Supine Exercise Name chest harpoon engagement planning operator position without any type of roll under spine Reps/Minutes 2 min Comments VC for breathing from diaphragm Flexion Supine Exercise Name hands clasped this session due to c/o weight of holding dowel Side bilateral Reps/Minutes 8 X Comments trial of gentle resistance lowering/reports dec pain Sitting Exercises shoulder ER with dowel Sitting Exercise Name UE resting on pillows Side left Equipment Used dowel Reps/Minutes X10 Comments verbal and tactile cues Standing Exercises shoulder abduction with dowel Side left Reps/Minutes X10 Comments performed facing mirror, VC to avoid UT activation L stretch Standing Exercise Name body on UE shoulder flexion Side bilateral Reps/Minutes X8 Comments just past 90 deg left UE Manual Therapy Treatment Soft Tissue Mobilization pec Body Location left pec Mobilization Type Cross-Friction,Rolling Intensity/Depth Moderate Periscapular Body Location L Periscapular musculature Mobilization Type Cross-Friction,Rolling, Sustained Pressure Body Position Sidelying Joint Mobilizations scapular mobilization Joint left scapula Direction depression and adduction Grade III Body Position Sidelying Reps/Duration 15 each direction Comments monitored for pain Self-Care/Home Management Treatment Activities Self-Care/Home Management Activities L stretch and chest harpoon engagement planning operator/pec stretch with out roll added to HEP PT-OP-T Assessment and Plan Start: 12/18/23 16:02 Freq: Status: Active Protocol: Document 12/30/23 09:29 AB (Rec: 12/30/23 12:05 AB [id number]) Physical Therapy Assessment Goals Three Impairment Pt unable to lift her purse using her left arm Fpc Goal (LTG) Pt to decrease pain to <3/10 in left shoulder in order to enable her to lift objects 10 pounds or less Two Impairment Severely limited left shoulder AROM flexion (42?) and abduction (43?) Fpc Goal (LTG) Pt to demonstrate increased left shoulder flexion and abduction AROM to at least 120 ? in both planes in order to improve ability to put away household items overhead. One Impairment Pt does not have an appropriate home exercise program Short Term Goal (STG) Pt to be independent and compliant with an appropriate HEP STG Duration 01/16/24 Assessment Summary Assessment AROM left shoulder flexion to 72 deg with increased effort end of session, reports pain increased to 5-6/10 at rest and was 7/10 with movement. Physical Therapy Plan Frequency and Duration Frequency of Treatment 2x/Week Plan of Care Start Date 12/18/23 Plan of Care End Date 02/16/24 Next Visit Focus/Plan Next Note Type Treatment Note Next Visit Plan Shoulder mobility, strengthening possibly scapular depression and scap squeeze with/without band, very gentle pain free deltoid isometrics.
--- NOTE | 2024-01-01 11:19 | PT.OTN ---
Current Diagnoses Other chronic pain (01/01/24) Pain in right shoulder (01/01/24) Pain in left shoulder (01/01/24) Pain in right hip (01/01/24) Pain in left hip (01/01/24) Low back pain, unspecified (01/01/24) Physical Therapy Treatment Note PT-OP-A Visit Information Start: 12/18/23 16:02 Freq: Status: Active Protocol: Document 01/01/24 09:57 NBM (Rec: 01/01/24 11:19 NBM [id number]) Out-Patient Physical Therapy Visit Information Visit Information Visit Type Treatment Note Visit Start Time 09:50 Visit Stop Time 10:40 Visit Number 4 Number of WRAPPER SIZER Visits 2 PT-OP-B Current Condition Start: 12/18/23 16:02 Freq: Status: Active Protocol: Document 12/18/23 09:00 DCW (Rec: 12/21/23 09:36 DCW [id number]) Current Condition History of Current Condition Onset Date One month history Current Complaints Left shoulder pain, limited ROM History of Current Condition Pt is a 58 year old female presenting with a one month history of left shoulder pain. 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 Notes she can barely use it. Pain with AROM, as well as pain with palpation on top and along the middle. Pt reports x-ray did note a subacrominal bone spur. Reaching forward with her left arm can bring me to tears. Lifting items as light as her purse or phone can increase pain. Does note occasional numbness into forearm and her 3rd,4th, and 5th fingers. Prior Treatments and Tests Left shoulder x-ray: IMPRESSION: Small calcification projecting lateral to the greater tuberosity, either dystrophic calcification or supraspinatus calcific tendinopathy. Moderate shoulder osteoarthritis. per Derrick Maldonado M.D. on 10/21/2023 Treatment Goals Patient/Caregiver Goals Pt's goals for treatment are to get exercises for home and return the use of her arm. Prior Functional Status Baseline Function- ADL's Independent Baseline Function- Mobility Independent Personal Factors Other Personal Factors That May Effect Hx of kidney removal, notes Therapy/Recovery with only one kidney she is very cautious with what medication she is able to take . PT-OP-C Subjective Start: 12/18/23 16:02 Freq: Status: Active Protocol: Document 01/01/24 09:57 NBM (Rec: 01/01/24 11:19 NBM [id number]) OP-PT Subjective Patient Comments Patient Comments Maira reports she has L shoulder pain (points to supraspinatus insertion) and achey pain traveling down to the L wrist. Her right neck and shoulder are painful and stiff today and she thinks this is because she has been compensating on her R side for the L shoulder. PT-OP-E Functional Tests Start: 12/18/23 16:02 Freq: Status: Active Protocol: Document 12/18/23 09:00 DCW (Rec: 12/18/23 16:53 DCW [id number]) Functional Tests Apley's Scratch Test Action 1- Left Difficulty crossing midline Action 2- Left Forehead Action 3- Left L1 PT-OP-F Manual Assessment Start: 12/18/23 16:02 Freq: Status: Active Protocol: Document 12/18/23 09:00 DCW (Rec: 12/18/23 16:53 DCW [id number]) Manual Assessments Soft Tissue Assessment Soft Tissue Mobility Assessment Tenderness to palpation 3/4: Wincing and withdraw along L subacromial space, supraspinatus, pec Joint Mobility Assessment Joint Mobility Assessment Significant decrease in passive and active ROM PT-OP-K Range of Motion Start: 12/18/23 16:02 Freq: Status: Active Protocol: Document 12/18/23 09:00 DCW (Rec: 12/18/23 16:53 DCW [id number]) Shoulder Goniometric Range of Motion Shoulder Left Passive Shoulder ROM WFL No Testing Position Supine Flexion 120 Abduction 52 External Rotation at 0 degrees Abduction 50 Left Active Shoulder ROM WFL No Testing Position Sitting Flexion 42 Abduction 43 External Rotation at 0 degrees Abduction 45 Internal Rotation Behind Back (text) L1 PT-OP-L Special Tests Start: 12/18/23 16:02 Freq: Status: Active Protocol: Document 12/18/23 09:00 DCW (Rec: 12/18/23 16:53 DCW [id number]) Special Tests Shoulder Special Tests Passive ER Rotator Cuff Test Results Negative Lift-Off Rotator Cuff Test Results Positive L Reese Albaro Impingement Test Results Positive L Grind Labrum Test Results Positive L Empty Can Test Results Unable to position Drop Arm Rotator Cuff Test Results Positive L Belly Press Test Results Negative Apprehension Test Test Results Positive L AC Joint Compression Test Results Positive L pain PT-OP-M Strength Start: 12/18/23 16:02 Freq: Status: Active Protocol: Document 12/18/23 09:00 DCW (Rec: 12/18/23 16:53 DCW [id number]) Shoulder Strength Shoulder Manual Muscle Testing Left Flexion 2- Poor- Abduction (C5) 2- Poor- External Rotation 3 Fair Internal Rotation 3- Fair- PT-OP-Q Treatments Start: 12/18/23 16:02 Freq: Status: Active Protocol: Document 01/01/24 09:57 NB (Rec: 01/01/24 11:19 [facility] [id number]) Therapeutic Exercises Supine Exercises pec stretch Supine Exercise Name chest community relations representative position without any type of roll under spine - verbal review Reps/Minutes 2 min Comments VC for breathing from diaphragm Sitting Exercises chin tucks Sitting Exercise Name 1. AROM 2. 2-3 sec hold x5 Comments initial R-side cervical discomfort improves w/ breath cervical stretches Sitting Exercise Name UT, LS, scalenes Side bilateral Reps/Minutes 30s ea Comments cues for pain-free range and breathwork Manual Therapy Treatment Soft Tissue Mobilization cervical Body Location B UT, LS, paraspinals, SOR Mobilization Type Rolling,Strumming,Sustained Pressure,Other Body Position Supine Comments Towel roll under distal LUE improves symptoms down arm. Breathwork w/ manual pin and stretch to B UT and R LS - limited pain-free PROM. PT-OP-T Assessment and Plan Start: 12/18/23 16:02 Freq: Status: Active Protocol: Document 01/01/24 09:57 NB (Rec: 01/01/24 11:19 [facility] [id number]) Physical Therapy Assessment Goals Three Impairment Pt unable to lift her purse using her left arm Denture Packer Goal (LTG) Pt to decrease pain to <3/10 in left shoulder in order to enable her to lift objects 10 pounds or less 01/01/24: Pt carries heavy purse in R and has neck/ shoulder stiffness - edu to pt on cross-body wear. Two Impairment Severely limited left shoulder AROM flexion (42?) and abduction (43?) Residential Goal (LTG) Pt to demonstrate increased left shoulder flexion and abduction AROM to at least 120 ? in both planes in order to improve ability to put away household items overhead. One Impairment Pt does not have an appropriate home exercise program Short Term Goal (STG) Pt to be independent and compliant with an appropriate HEP STG Duration 01/16/24 Assessment Summary Assessment Pt presents today with limited R cervical rotation and R- sided cervical stiffness and pain, as well as ongoing L shoulder pain w/ deep ache into wrist. Treatment focus on education and STM. Edu for ergonomic desk setup w/ HO, seated cervical stretches ( chin tucks, UT, LS, Desk stretch HO given) w/ cues for pain-free range and breathwork ; edu for breath to reduce muscle guarding due to pain apprehension. R shouler compensations for L shoulder pain possibly contributing to R neck and shoulder stiffness today - edu to pt on cross- body wear w/ satchel hip level using visual aids. Verbal discussion of self-STM w/ tennis balls (taped into peaut for suboccipital release). Also edu pt re: shoulder anatomy to understand role of pec stretching and periscapular strengthening for improved shoulder stability. Breathwork w/ manual pin and stretch to B UT and R LS - limited pain-free PROM. Pt demonstrates decreased muscle guarding and associated pain with cues for breathwork and improves self-awareness and performance by end of session. Physical Therapy Plan Frequency and Duration Frequency of Treatment 2x/Week Plan of Care Start Date 12/18/23 Plan of Care End Date 02/16/24 Therapeutic Interventions Therapeutic Interventions Home Exercise Program,Joint Mobilizations,Manual Therapy, Neuromuscular Re-education, Patient/Caregiver Education, Self-Care/Home Management,Soft Tissue Mobilization, Therapeutic Activities, Therapeutic Exercises Modalities Cold Pack/Ice Massage,Electric Stimulation,Hot Packs, Ultrasound Next Visit Focus/Plan Next Note Type Treatment Note Next Visit Plan Shoulder mobility, strengthening possibly scapular depression and scap squeeze with/without band, very gentle pain free deltoid isometrics.
--- NOTE | 2024-01-05 16:38 | PT.OTN ---
Current Diagnoses Other chronic pain (01/05/24) Pain in right shoulder (01/05/24) Pain in left shoulder (01/05/24) Pain in right hip (01/05/24) Pain in left hip (01/05/24) Low back pain, unspecified (01/05/24) Physical Therapy Treatment Note PT-OP-A Visit Information Start: 12/18/23 16:02 Freq: Status: Active Protocol: Document 01/05/24 15:56 NBM (Rec: 01/05/24 16:36 NBM [id number]) Out-Patient Physical Therapy Visit Information Visit Information Visit Type Treatment Note Visit Start Time 10:31 Visit Stop Time 11:18 Visit Number 5 Number of FLOOR RUNNER Visits 3 Evaluation Information Evaluation Date 12/18/23 PT-OP-B Current Condition Start: 12/18/23 16:02 Freq: Status: Active Protocol: Document 12/18/23 09:00 DCW (Rec: 12/21/23 09:36 DCW [id number]) Current Condition History of Current Condition Onset Date One month history Current Complaints Left shoulder pain, limited ROM History of Current Condition Pt is a 58 year old female presenting with a one month history of left shoulder pain. 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 Notes she can barely use it. Pain with AROM, as well as pain with palpation on top and along the middle. Pt reports x-ray did note a subacrominal bone spur. Reaching forward with her left arm can bring me to tears. Lifting items as light as her purse or phone can increase pain. Does note occasional numbness into forearm and her 3rd,4th, and 5th fingers. Prior Treatments and Tests Left shoulder x-ray: IMPRESSION: Small calcification projecting lateral to the greater tuberosity, either dystrophic calcification or supraspinatus calcific tendinopathy. Moderate shoulder osteoarthritis. per Derrick Maldonado M.D. on 10/21/2023 Treatment Goals Patient/Caregiver Goals Pt's goals for treatment are to get exercises for home and return the use of her arm. Prior Functional Status Baseline Function- ADL's Independent Baseline Function- Mobility Independent Personal Factors Other Personal Factors That May Effect Hx of kidney removal, notes Therapy/Recovery with only one kidney she is very cautious with what medication she is able to take . PT-OP-C Subjective Start: 12/18/23 16:02 Freq: Status: Active Protocol: Document 01/05/24 15:56 NBM (Rec: 01/05/24 16:36 NBM [id number]) OP-PT Subjective Patient Comments Patient Comments Maira reports decreased R neck stiffness and has been doing cervical stretches with breathing and HEP and thinks they have helped. She started cross-body wearing purse today and assessed her work station and needs to raise her monitor. Her L arm is really weak and she can't raise the stick with it so has kind of given up on that ex. She states she has a weak core and thinks that contributes to her R hip pain but the shoulder pain had gotten so bad it pretty much took her attention from the hip. Patient Reported Progress Improving PT-OP-E Functional Tests Start: 12/18/23 16:02 Freq: Status: Active Protocol: Document 12/18/23 09:00 DCW (Rec: 12/18/23 16:53 DCW [id number]) Functional Tests Apley's Scratch Test Action 1- Left Difficulty crossing midline Action 2- Left Forehead Action 3- Left L1 PT-OP-F Manual Assessment Start: 12/18/23 16:02 Freq: Status: Active Protocol: Document 12/18/23 09:00 DCW (Rec: 12/18/23 16:53 DCW [id number]) Manual Assessments Soft Tissue Assessment Soft Tissue Mobility Assessment Tenderness to palpation 3/4: Wincing and withdraw along L subacromial space, supraspinatus, pec Joint Mobility Assessment Joint Mobility Assessment Significant decrease in passive and active ROM PT-OP-K Range of Motion Start: 12/18/23 16:02 Freq: Status: Active Protocol: Document 12/18/23 09:00 DCW (Rec: 12/18/23 16:53 DCW [id number]) Shoulder Goniometric Range of Motion Shoulder Left Passive Shoulder ROM WFL No Testing Position Supine Flexion 120 Abduction 52 External Rotation at 0 degrees Abduction 50 Left Active Shoulder ROM WFL No Testing Position Sitting Flexion 42 Abduction 43 External Rotation at 0 degrees Abduction 45 Internal Rotation Behind Back (text) L1 PT-OP-L Special Tests Start: 12/18/23 16:02 Freq: Status: Active Protocol: Document 12/18/23 09:00 DCW (Rec: 12/18/23 16:53 DCW [id number]) Special Tests Shoulder Special Tests Passive ER Rotator Cuff Test Results Negative Lift-Off Rotator Cuff Test Results Positive L Reese Albaro Impingement Test Results Positive L Grind Labrum Test Results Positive L Empty Can Test Results Unable to position Drop Arm Rotator Cuff Test Results Positive L Belly Press Test Results Negative Apprehension Test Test Results Positive L AC Joint Compression Test Results Positive L pain PT-OP-M Strength Start: 12/18/23 16:02 Freq: Status: Active Protocol: Document 12/18/23 09:00 DCW (Rec: 12/18/23 16:53 DC [id number]) Shoulder Strength Shoulder Manual Muscle Testing Left Flexion 2- Poor- Abduction (C5) 2- Poor- External Rotation 3 Fair Internal Rotation 3- Fair- PT-OP-Q Treatments Start: 12/18/23 16:02 Freq: Status: Active Protocol: Document 01/05/24 15:56 NBM (Rec: 01/05/24 16:36 [facility] [id number]) Therapeutic Exercises Sitting Exercises chin tucks Sitting Exercise Name HEP review Comments good form and self-awareness demonstrated cervical stretches Sitting Exercise Name UT, LS, scalenes Side bilateral Reps/Minutes 30s ea Comments cues for pain-free range and breathwork Standing Exercises Shoulder Iso's Standing Exercise Name abd/flexion (90 deg and straight arm)/Ext, ER Side left Equipment Used wall, folded towel Reps/Minutes 3x 10s ea Comments cues for gentle, pain-free range only, slower count Manual Therapy Treatment Soft Tissue Mobilization cervical Body Location B UT, LS, paraspinals, SOR Mobilization Type Rolling,Strumming,Sustained Pressure,Other Body Position Supine Comments No towel roll needed under distal LUE today. R>L focus w/ all. Breathwork. Self-Care/Home Management Treatment Education Patient Education Home Exercise Program,Pain Management Other Education HEP review. Added to HEP: deltoid iso's - HO given. Discussion w/ pt re: body affirmations with daily mantra Thank you, Body, for all you did today using deep breaths . PT-OP-T Assessment and Plan Start: 12/18/23 16:02 Freq: Status: Active Protocol: Document 01/05/24 15:56 NBM (Rec: 01/05/24 16:36 [facility] [id number]) Physical Therapy Assessment Goals Three Impairment Pt unable to lift her purse using her left arm Fdc Goal (LTG) Pt to decrease pain to <3/10 in left shoulder in order to enable her to lift objects 10 pounds or less 01/01/24: Pt carries heavy purse in R and has neck/ shoulder stiffness - edu to pt on cross-body wear. Two Impairment Severely limited left shoulder AROM flexion (42?) and abduction (43?) Health Management Consultant Goal (LTG) Pt to demonstrate increased left shoulder flexion and abduction AROM to at least 120 ? in both planes in order to improve ability to put away household items overhead. 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 She requires cues for form w / cervical stretching and for gentle, pain-free range only with improved self-awareness after cueing and repetition. She tolerates deltoid iso's w/ ER most challenging and requires cues for gentle pain- free range only. Added to HEP: deltoid isometrics w/ HO and relaxation mantra to reinforce positive body acceptance Thank you, Body, for all you did today. PT i/s to hold on L frida abd w/ dowel due to reported pain and has self- discontinued. No L upper extremity support is needed today w/ STM, and palpable tension through R UT, LS and Scalenes decreases post-STM. Pt is able to perform supine to L sitting EOB without pain today end of session and reports this is an improvement . Physical Therapy Plan Frequency and Duration Frequency of Treatment 2x/Week Plan of Care Start Date 12/18/23 Plan of Care End Date 02/16/24 Therapeutic Interventions Therapeutic Interventions Home Exercise Program,Joint Mobilizations,Manual Therapy, Neuromuscular Re-education, Patient/Caregiver Education, Self-Care/Home Management,Soft Tissue Mobilization, Therapeutic Activities, Therapeutic Exercises Modalities Cold Pack/Ice Massage,Electric Stimulation,Hot Packs, Ultrasound Next Visit Focus/Plan Next Note Type Treatment Note Next Visit Plan Assess response to new HEP ( deltoid iso's), ergo workstation, cross-body purse wearing. POC: Shoulder mobility, strengthening possibly scapular depression and scap squeeze with/without band, very gentle pain free deltoid isometrics.
--- NOTE | 2024-01-07 10:59 | PT.OTN ---
Current Diagnoses Other chronic pain (01/07/24) Pain in right shoulder (01/07/24) Pain in left shoulder (01/07/24) Pain in right hip (01/07/24) Pain in left hip (01/07/24) Low back pain, unspecified (01/07/24) Physical Therapy Treatment Note PT-OP-A Visit Information Start: 12/18/23 16:02 Freq: Status: Active Protocol: Document 01/07/24 09:44 SW (Rec: 01/07/24 10:59 SW [id number]) Out-Patient Physical Therapy Visit Information Visit Information Visit Type Treatment Note Visit Start Time 09:45 Visit Stop Time 10:25 Visit Number 6 Number of SCHOOL PSYCHOMETRIST Visits 4 PT-OP-B Current Condition Start: 12/18/23 16:02 Freq: Status: Active Protocol: Document 12/18/23 09:00 DCW (Rec: 12/21/23 09:36 DCW [id number]) Current Condition History of Current Condition Onset Date One month history Current Complaints Left shoulder pain, limited ROM History of Current Condition Pt is a 58 year old female presenting with a one month history of left shoulder pain. 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 Notes she can barely use it. Pain with AROM, as well as pain with palpation on top and along the middle. Pt reports x-ray did note a subacrominal bone spur. Reaching forward with her left arm can bring me to tears. Lifting items as light as her purse or phone can increase pain. Does note occasional numbness into forearm and her 3rd,4th, and 5th fingers. Prior Treatments and Tests Left shoulder x-ray: IMPRESSION: Small calcification projecting lateral to the greater tuberosity, either dystrophic calcification or supraspinatus calcific tendinopathy. Moderate shoulder osteoarthritis. per Derrick Maldonado M.D. on 10/21/2023 Treatment Goals Patient/Caregiver Goals Pt's goals for treatment are to get exercises for home and return the use of her arm. Prior Functional Status Baseline Function- ADL's Independent Baseline Function- Mobility Independent Personal Factors Other Personal Factors That May Effect Hx of kidney removal, notes Therapy/Recovery with only one kidney she is very cautious with what medication she is able to take . PT-OP-C Subjective Start: 12/18/23 16:02 Freq: Status: Active Protocol: Document 01/07/24 09:44 SW (Rec: 01/07/24 10:59 SW [id number]) OP-PT Subjective Patient Comments Patient Comments Pt reports new exercises going good. Pt feels like neck exercises have been going well . PT-OP-E Functional Tests Start: 12/18/23 16:02 Freq: Status: Active Protocol: Document 12/18/23 09:00 DCW (Rec: 12/18/23 16:53 DCW [id number]) Functional Tests Apley's Scratch Test Action 1- Left Difficulty crossing midline Action 2- Left Forehead Action 3- Left L1 PT-OP-F Manual Assessment Start: 12/18/23 16:02 Freq: Status: Active Protocol: Document 12/18/23 09:00 DCW (Rec: 12/18/23 16:53 DCW [id number]) Manual Assessments Soft Tissue Assessment Soft Tissue Mobility Assessment Tenderness to palpation 3/4: Wincing and withdraw along L subacromial space, supraspinatus, pec Joint Mobility Assessment Joint Mobility Assessment Significant decrease in passive and active ROM PT-OP-K Range of Motion Start: 12/18/23 16:02 Freq: Status: Active Protocol: Document 12/18/23 09:00 DCW (Rec: 12/18/23 16:53 DCW [id number]) Shoulder Goniometric Range of Motion Shoulder Left Passive Shoulder ROM WFL No Testing Position Supine Flexion 120 Abduction 52 External Rotation at 0 degrees Abduction 50 Left Active Shoulder ROM WFL No Testing Position Sitting Flexion 42 Abduction 43 External Rotation at 0 degrees Abduction 45 Internal Rotation Behind Back (text) L1 PT-OP-L Special Tests Start: 12/18/23 16:02 Freq: Status: Active Protocol: Document 12/18/23 09:00 DCW (Rec: 12/18/23 16:53 DCW [id number]) Special Tests Shoulder Special Tests Passive ER Rotator Cuff Test Results Negative Lift-Off Rotator Cuff Test Results Positive L Reese Albaro Impingement Test Results Positive L Grind Labrum Test Results Positive L Empty Can Test Results Unable to position Drop Arm Rotator Cuff Test Results Positive L Belly Press Test Results Negative Apprehension Test Test Results Positive L AC Joint Compression Test Results Positive L pain PT-OP-M Strength Start: 12/18/23 16:02 Freq: Status: Active Protocol: Document 12/18/23 09:00 DCW (Rec: 12/18/23 16:53 DCW [id number]) Shoulder Strength Shoulder Manual Muscle Testing Left Flexion 2- Poor- Abduction (C5) 2- Poor- External Rotation 3 Fair Internal Rotation 3- Fair- PT-OP-Q Treatments Start: 12/18/23 16:02 Freq: Status: Active Protocol: Document 01/07/24 09:44 SW (Rec: 01/07/24 10:59 SW [id number]) Therapeutic Exercises Supine Exercises Serratus Punch Supine Exercise Name Serratus punch Flexion Supine Exercise Name hands clasped this session due to c/o weight of holding dowel Side bilateral Reps/Minutes 8 X Comments trial of gentle resistance lowering/reports dec pain Sitting Exercises chin tucks Sitting Exercise Name AROM, 3 hold (supine this session) Comments good form and self-awareness demonstrated cervical stretches Sitting Exercise Name UT, LS, scalenes Side bilateral Reps/Minutes 30s ea Comments cues for pain-free range and breathwork PROM Sitting Exercise Name PROM Pulleys Side bilateral Comments Flexion, Abduction Standing Exercises Shoulder Iso's Standing Exercise Name abd/flexion (90 deg and straight arm)/Ext, ER Side left Equipment Used wall, folded towel Reps/Minutes 3x 10s ea Comments cues for gentle, pain-free range only, slower count Manual Therapy Treatment Soft Tissue Mobilization cervical Body Location B UT, LS, paraspinals, SOR Mobilization Type Rolling,Strumming,Sustained Pressure,Other Body Position Supine Comments No towel roll needed under distal LUE today. R>L focus w/ all. Breathwork. Self-Care/Home Management Treatment Education Patient Education Home Exercise Program,Pain Management Other Education Pt education on modalities for pain and swelling within the joint. Pt education on symptom assessment during HEP and to not push into increasing pain or nerve symptoms during exercises, educated patient on signs of increased neural compression. Discussed importance of carryover with exercises at home for pt progress. Educated patient on atrophy and decreased neuromuscular control that can happen with disuse. PT-OP-T Assessment and Plan Start: 12/18/23 16:02 Freq: Status: Active Protocol: Document 01/07/24 09:44 SW (Rec: 01/07/24 10:59 [id number]) Physical Therapy Assessment Goals Three Impairment Pt unable to lift her purse using her left arm Oil Gas And Pipe Tester Goal (LTG) Pt to decrease pain to <3/10 in left shoulder in order to enable her to lift objects 10 pounds or less 01/01/24: Pt carries heavy purse in R and has neck/ shoulder stiffness - edu to pt on cross-body wear. Two Impairment Severely limited left shoulder AROM flexion (42?) and abduction (43?) Group Home Goal (LTG) Pt to demonstrate increased left shoulder flexion and abduction AROM to at least 120 ? in both planes in order to improve ability to put away household items overhead. One Impairment Pt does not have an appropriate home exercise program Short Term Goal (STG) Pt to be independent and compliant with an appropriate HEP STG Duration 01/16/24 Assessment Summary Assessment Started session with manual therapy to decrease pain and tension, pt increased use in L UE reports sore today, pt tender to superficial palpation in distal trap/ levator scapulae L tenderness> R shoulder. Pt reports able to get L arm closer to mouth to drink coffee. Verbal cues required for pain free range with stretching and symptom assessment. Physical Therapy Plan Frequency and Duration Frequency of Treatment 2x/Week Plan of Care Start Date 12/18/23 Plan of Care End Date 02/16/24 Therapeutic Interventions Therapeutic Interventions Home Exercise Program,Joint Mobilizations,Manual Therapy, Neuromuscular Re-education, Patient/Caregiver Education, Self-Care/Home Management,Soft Tissue Mobilization, Therapeutic Activities, Therapeutic Exercises Modalities Cold Pack/Ice Massage,Electric Stimulation,Hot Packs, Ultrasound Next Visit Focus/Plan Next Note Type Treatment Note Next Visit Plan Assess response to new HEP ( deltoid iso's), ergo workstation, cross-body purse wearing. POC: Shoulder mobility, strengthening possibly scapular depression and scap squeeze with/without band, very gentle pain free deltoid isometrics.
--- NOTE | 2024-01-25 13:13 | PT.OTN ---
Current Diagnoses Other chronic pain (01/25/24) Pain in right shoulder (01/25/24) Pain in left shoulder (01/25/24) Pain in right hip (01/25/24) Pain in left hip (01/25/24) Low back pain, unspecified (01/25/24) Physical Therapy Treatment Note PT-OP-A Visit Information Start: 12/18/23 16:02 Freq: Status: Active Protocol: Document 01/25/24 12:30 DCW (Rec: 01/25/24 13:13 DCW [id number]) Out-Patient Physical Therapy Visit Information Visit Information Visit Type Treatment Note Visit Start Time 12:30 Visit Stop Time 13:15 Visit Number 7 Number of VOICE PATHOLOGIST Visits 0 Evaluation Information Evaluation Date 12/18/23 PT-OP-B Current Condition Start: 12/18/23 16:02 Freq: Status: Active Protocol: Document 12/18/23 09:00 DCW (Rec: 12/21/23 09:36 DCW [id number]) Current Condition History of Current Condition Onset Date One month history Current Complaints Left shoulder pain, limited ROM History of Current Condition Pt is a 58 year old female presenting with a one month history of left shoulder pain. 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 Notes she can barely use it. Pain with AROM, as well as pain with palpation on top and along the middle. Pt reports x-ray did note a subacrominal bone spur. Reaching forward with her left arm can bring me to tears. Lifting items as light as her purse or phone can increase pain. Does note occasional numbness into forearm and her 3rd,4th, and 5th fingers. Prior Treatments and Tests Left shoulder x-ray: IMPRESSION: Small calcification projecting lateral to the greater tuberosity, either dystrophic calcification or supraspinatus calcific tendinopathy. Moderate shoulder osteoarthritis. per Derrick Maldonado M.D. on 10/21/2023 Treatment Goals Patient/Caregiver Goals Pt's goals for treatment are to get exercises for home and return the use of her arm. Prior Functional Status Baseline Function- ADL's Independent Baseline Function- Mobility Independent Personal Factors Other Personal Factors That May Effect Hx of kidney removal, notes Therapy/Recovery with only one kidney she is very cautious with what medication she is able to take . PT-OP-C Subjective Start: 12/18/23 16:02 Freq: Status: Active Protocol: Document 01/25/24 12:30 DCW (Rec: 01/25/24 13:13 DCW [id number]) OP-PT Subjective Patient Comments Patient Comments Way better so far, I can move my neck normally again. Notes her mobility is much better, does feel like her arm is just pretty weak. PT-OP-E Functional Tests Start: 12/18/23 16:02 Freq: Status: Active Protocol: Document 12/18/23 09:00 DCW (Rec: 12/18/23 16:53 DCW [id number]) Functional Tests Apley's Scratch Test Action 1- Left Difficulty crossing midline Action 2- Left Forehead Action 3- Left L1 PT-OP-F Manual Assessment Start: 12/18/23 16:02 Freq: Status: Active Protocol: Document 12/18/23 09:00 DCW (Rec: 12/18/23 16:53 DCW [id number]) Manual Assessments Soft Tissue Assessment Soft Tissue Mobility Assessment Tenderness to palpation 3/4: Wincing and withdraw along L subacromial space, supraspinatus, pec Joint Mobility Assessment Joint Mobility Assessment Significant decrease in passive and active ROM PT-OP-K Range of Motion Start: 12/18/23 16:02 Freq: Status: Active Protocol: Document 12/18/23 09:00 DCW (Rec: 12/18/23 16:53 DCW [id number]) Shoulder Goniometric Range of Motion Shoulder Left Passive Shoulder ROM WFL No Testing Position Supine Flexion 120 Abduction 52 External Rotation at 0 degrees Abduction 50 Left Active Shoulder ROM WFL No Testing Position Sitting Flexion 42 Abduction 43 External Rotation at 0 degrees Abduction 45 Internal Rotation Behind Back (text) L1 PT-OP-L Special Tests Start: 12/18/23 16:02 Freq: Status: Active Protocol: Document 12/18/23 09:00 DCW (Rec: 12/18/23 16:53 DCW [id number]) Special Tests Shoulder Special Tests Passive ER Rotator Cuff Test Results Negative Lift-Off Rotator Cuff Test Results Positive L Reese Albaro Impingement Test Results Positive L Grind Labrum Test Results Positive L Empty Can Test Results Unable to position Drop Arm Rotator Cuff Test Results Positive L Belly Press Test Results Negative Apprehension Test Test Results Positive L AC Joint Compression Test Results Positive L pain PT-OP-M Strength Start: 12/18/23 16:02 Freq: Status: Active Protocol: Document 12/18/23 09:00 DCW (Rec: 12/18/23 16:53 DCW [id number]) Shoulder Strength Shoulder Manual Muscle Testing Left Flexion 2- Poor- Abduction (C5) 2- Poor- External Rotation 3 Fair Internal Rotation 3- Fair- PT-OP-Q Treatments Start: 12/18/23 16:02 Freq: Status: Active Protocol: Document 01/25/24 12:30 DCW (Rec: 01/25/24 13:13 DCW [id number]) Therapeutic Exercises Prone Exercises I's, Y's, T's Prone Exercise Name I's, Y's, T's Side left Resistance 2# Reps/Minutes x10 Sidelying Exercises ER Sidelying Exercise Name Shoulder ER Side left Resistance 2# Sitting Exercises ER/IR Sitting Exercise Name ER/IR in 90/90 Side left Resistance 2.2# ball Standing Exercises ER Standing Exercise Name Shoulder ER Side bilateral Resistance Lv 1 Abduction Standing Exercise Name Shoulder Abduction Side left Resistance Lv 1 Flexion Standing Exercise Name Shoulder Flexion Side left Resistance Lv 1 Other Exercises Resisted Ambulation Other Exercise Name Resisted UE side-stepping Resistance Green [place] Wall push-ups Other Exercise Name Wall push-ups Reps/Minutes x10 each Comments <> and W hand position Manual Therapy Treatment Soft Tissue Mobilization Periscapular Body Location L Periscapular musculature Mobilization Type Cross-Friction,Rolling, Sustained Pressure Body Position Sidelying PT-OP-T Assessment and Plan Start: 12/18/23 16:02 Freq: Status: Active Protocol: Document 01/25/24 12:30 DCW (Rec: 01/25/24 13:13 DCW [id number]) Physical Therapy Assessment Impairments Impairments Activity Tolerance,Functional Activities,Functional Mobility ,Pain,ROM,Soft Tissue Mobility ,Strength,Tone Goals Three Impairment Pt unable to lift her purse using her left arm Retirement Goal (LTG) Pt to decrease pain to <3/10 in left shoulder in order to enable her to lift objects 10 pounds or less 01/01/24: Pt carries heavy purse in R and has neck/ shoulder stiffness - edu to pt on cross-body wear. Two Impairment Severely limited left shoulder AROM flexion (42?) and abduction (43?) Community Integration Specialist Goal (LTG) Pt to demonstrate increased left shoulder flexion and abduction AROM to at least 120 ? in both planes in order to improve ability to put away household items overhead. One Impairment Pt does not have an appropriate home exercise program Short Term Goal (STG) Pt to be independent and compliant with an appropriate HEP STG Duration 01/16/24 Assessment Summary Assessment Pt performing much better today, minimal pain, demonstrating increased ROM. Main focus today on strength due to ongoing feeling of weakness. Agreeable to new HEP . Physical Therapy Plan Frequency and Duration Frequency of Treatment 2x/Week Plan of Care Start Date 12/18/23 Plan of Care End Date 02/16/24 Therapeutic Interventions Therapeutic Interventions Home Exercise Program,Joint Mobilizations,Manual Therapy, Neuromuscular Re-education, Patient/Caregiver Education, Self-Care/Home Management,Soft Tissue Mobilization, Therapeutic Activities, Therapeutic Exercises Modalities Cold Pack/Ice Massage,Electric Stimulation,Hot Packs, Ultrasound Next Visit Focus/Plan Next Note Type Treatment Note Next Visit Plan Assess response to new HEP ( deltoid iso's), ergo workstation, cross-body purse wearing. POC: Shoulder mobility, strengthening possibly scapular depression and scap squeeze with/without band, very gentle pain free deltoid isometrics.
--- NOTE | 2024-01-27 16:45 | PT.OTN ---
Current Diagnoses Other chronic pain (01/27/24) Pain in right shoulder (01/27/24) Pain in left shoulder (01/27/24) Pain in right hip (01/27/24) Pain in left hip (01/27/24) Low back pain, unspecified (01/27/24) Physical Therapy Treatment Note PT-OP-A Visit Information Start: 12/18/23 16:02 Freq: Status: Active Protocol: Document 01/27/24 14:40 NBM (Rec: 01/27/24 15:24 NBM [id number]) Out-Patient Physical Therapy Visit Information Visit Information Visit Type Treatment Note Visit Note Per Dialysis Nurse pt called to notify would be ten min late. Visit Start Time 14:45 Visit Stop Time 15:21 Visit Number 8 Number of HARVEST MANAGER Visits 1 PT-OP-B Current Condition Start: 12/18/23 16:02 Freq: Status: Active Protocol: Document 12/18/23 09:00 DCW (Rec: 12/21/23 09:36 DCW [id number]) Current Condition History of Current Condition Onset Date One month history Current Complaints Left shoulder pain, limited ROM History of Current Condition Pt is a 58 year old female presenting with a one month history of left shoulder pain. 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 Notes she can barely use it. Pain with AROM, as well as pain with palpation on top and along the middle. Pt reports x-ray did note a subacrominal bone spur. Reaching forward with her left arm can bring me to tears. Lifting items as light as her purse or phone can increase pain. Does note occasional numbness into forearm and her 3rd,4th, and 5th fingers. Prior Treatments and Tests Left shoulder x-ray: IMPRESSION: Small calcification projecting lateral to the greater tuberosity, either dystrophic calcification or supraspinatus calcific tendinopathy. Moderate shoulder osteoarthritis. per Derrick Maldonado M.D. on 10/21/2023 Treatment Goals Patient/Caregiver Goals Pt's goals for treatment are to get exercises for home and return the use of her arm. Prior Functional Status Baseline Function- ADL's Independent Baseline Function- Mobility Independent Personal Factors Other Personal Factors That May Effect Hx of kidney removal, notes Therapy/Recovery with only one kidney she is very cautious with what medication she is able to take . PT-OP-C Subjective Start: 12/18/23 16:02 Freq: Status: Active Protocol: Document 01/27/24 14:40 NBM (Rec: 01/27/24 15:24 NBM [id number]) OP-PT Subjective Patient Comments Patient Comments Maira reports she's able to lift a coffee cup up more; she hasn't tried it in a bit but is doing better overall and thinks she would be able to drink from it now if she tried it. Patient Reported Progress Improving PT-OP-E Functional Tests Start: 12/18/23 16:02 Freq: Status: Active Protocol: Document 12/18/23 09:00 DCW (Rec: 12/18/23 16:53 DCW [id number]) Functional Tests Apley's Scratch Test Action 1- Left Difficulty crossing midline Action 2- Left Forehead Action 3- Left L1 PT-OP-F Manual Assessment Start: 12/18/23 16:02 Freq: Status: Active Protocol: Document 12/18/23 09:00 DCW (Rec: 12/18/23 16:53 DCW [id number]) Manual Assessments Soft Tissue Assessment Soft Tissue Mobility Assessment Tenderness to palpation 3/4: Wincing and withdraw along L subacromial space, supraspinatus, pec Joint Mobility Assessment Joint Mobility Assessment Significant decrease in passive and active ROM PT-OP-K Range of Motion Start: 12/18/23 16:02 Freq: Status: Active Protocol: Document 12/18/23 09:00 DCW (Rec: 12/18/23 16:53 DCW [id number]) Shoulder Goniometric Range of Motion Shoulder Left Passive Shoulder ROM WFL No Testing Position Supine Flexion 120 Abduction 52 External Rotation at 0 degrees Abduction 50 Left Active Shoulder ROM WFL No Testing Position Sitting Flexion 42 Abduction 43 External Rotation at 0 degrees Abduction 45 Internal Rotation Behind Back (text) L1 PT-OP-L Special Tests Start: 12/18/23 16:02 Freq: Status: Active Protocol: Document 12/18/23 09:00 DCW (Rec: 12/18/23 16:53 DCW [id number]) Special Tests Shoulder Special Tests Passive ER Rotator Cuff Test Results Negative Lift-Off Rotator Cuff Test Results Positive L Reese Albaro Impingement Test Results Positive L Grind Labrum Test Results Positive L Empty Can Test Results Unable to position Drop Arm Rotator Cuff Test Results Positive L Belly Press Test Results Negative Apprehension Test Test Results Positive L AC Joint Compression Test Results Positive L pain PT-OP-M Strength Start: 12/18/23 16:02 Freq: Status: Active Protocol: Document 12/18/23 09:00 DCW (Rec: 12/18/23 16:53 DCW [id number]) Shoulder Strength Shoulder Manual Muscle Testing Left Flexion 2- Poor- Abduction (C5) 2- Poor- External Rotation 3 Fair Internal Rotation 3- Fair- PT-OP-Q Treatments Start: 12/18/23 16:02 Freq: Status: Active Protocol: Document 01/27/24 14:40 NBM (Rec: 01/27/24 15:24 NBM [id number]) Therapeutic Exercises Prone Exercises I's, Y's, T's Prone Exercise Name I's, T's, Y's Side left Resistance 2# Reps/Minutes x10 ea, Y's 0#x5, 2#x10 Comments w/ breathwork; cues for UT overactivation w/ fatigue Sidelying Exercises ER Sidelying Exercise Name Shoulder ER Side left Resistance 2# Reps/Minutes x12 Sitting Exercises ER/IR Sitting Exercise Name ER/IR in 90/90 Side left Resistance 2.2# ball Equipment Used elbow supported on plinth Reps/Minutes x10 Other Exercises Resisted Ambulation Other Exercise Name Resisted UE side-stepping Resistance Green loop Wall push-ups Other Exercise Name Wall push-ups Reps/Minutes x10 each Comments <> and W hand position Manual Therapy Treatment Soft Tissue Mobilization Periscapular Body Location L Periscapular musculature Mobilization Type Cross-Friction,Rolling, Sustained Pressure Body Position Sidelying PT-OP-T Assessment and Plan Start: 12/18/23 16:02 Freq: Status: Active Protocol: Document 01/27/24 14:40 NBM (Rec: 03/30/24 12:13 NBM [id number]) Physical Therapy Assessment Goals Three Impairment Pt unable to lift her purse using her left arm Nursing Home Goal (LTG) Pt to decrease pain to <3/10 in left shoulder in order to enable her to lift objects 10 pounds or less 01/01/24: Pt carries heavy purse in R and has neck/ shoulder stiffness - edu to pt on cross-body wear. Two Impairment Severely limited left shoulder AROM flexion (42?) and abduction (43?) Nursing Home Goal (LTG) Pt to demonstrate increased left shoulder flexion and abduction AROM to at least 120 ? in both planes in order to improve ability to put away household items overhead. One Impairment Pt does not have an appropriate home exercise program Short Term Goal (STG) Pt to be independent and compliant with an appropriate HEP STG Duration 01/16/24 Assessment Summary Assessment Treatment focus on HEP review in preparation for possible discharge. Maira requires cues for UT overactivation w/ fatigue performing Is/Ys/Ts prone and Y's are most challenging. Physical Therapy Plan Frequency and Duration Frequency of Treatment 2x/Week Plan of Care Start Date 12/18/23 Plan of Care End Date 02/16/24 Therapeutic Interventions Therapeutic Interventions Home Exercise Program,Joint Mobilizations,Manual Therapy, Neuromuscular Re-education, Patient/Caregiver Education, Self-Care/Home Management,Soft Tissue Mobilization, Therapeutic Activities, Therapeutic Exercises Modalities Cold Pack/Ice Massage,Electric Stimulation,Hot Packs, Ultrasound Next Visit Focus/Plan Next Note Type Treatment Note Next Visit Plan Assess response to new HEP ( deltoid iso's), ergo workstation, cross-body purse wearing. POC: Shoulder mobility, strengthening possibly scapular depression and scap squeeze with/without band, very gentle pain free deltoid isometrics.
--- NOTE | 2024-02-16 10:19 | PT.OPPN ---
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 Notes she can barely use it. Pain with AROM, as well as pain with palpation on top and along the middle. Pt reports x-ray did note a subacrominal bone spur. Reaching forward with her left arm can bring me to tears. Lifting items as light as her purse or phone can increase pain. Does note occasional numbness into forearm and her 3rd,4th, and 5th fingers. Prior Treatments and Tests Left shoulder x-ray: IMPRESSION: Small calcification projecting lateral to the greater tuberosity, either dystrophic calcification or supraspinatus calcific tendinopathy. Moderate shoulder osteoarthritis. per Derrick Maldonado M.D. on 10/21/2023 Treatment Goals Patient/Caregiver Goals Pt's goals for treatment are to get exercises for home and return the use of her arm. Prior Functional Status Baseline Function- ADL's Independent Baseline Function- Mobility Independent Personal Factors Other Personal Factors That May Effect Hx of kidney removal, notes Therapy/Recovery with only one kidney she is very cautious with what medication she is able to take . PT-OP-C Subjective Start: 12/18/23 16:02 Freq: Status: Active Protocol: Document 02/16/24 09:45 DCW (Rec: 02/16/24 10:17 DCW [id number]) OP-PT Subjective Patient Comments Patient Comments Pt notes shoulder is way better, has been feeling stronger. Notes she also has some issues with her copay, and may be better discharging to independent HEP. PT-OP-E Functional Tests Start: 12/18/23 16:02 Freq: Status: Active Protocol: Document 02/16/24 09:45 DCW (Rec: 02/16/24 10:19 VTW [id number]) Functional Tests Apley's Scratch Test Action 1: The subject is instructed to touch the opposite shoulder with his/her hand. This motion checks Glenohumeral adduction, internal rotation , horizontal adduction and scapular protraction Action 2: The subject is instructed to place his/her arm overhead and reach behind the neck to touch his/her upper back. This motion checks Glenohumeral abduction, external rotation and scapular upward rotation and elevation. Action 3: The subject puts his/her hand on the lower back and reaches upward as far as possible. This motion checks glenohumeral adduction, internal rotation and scapular retraction with downward rotation Action 1- Left Posterior opposite shoulder Action 2- Left T5 Action 3- Left T8 PT-OP-F Manual Assessment Start: 12/18/23 16:02 Freq: Status: Active Protocol: Document 02/16/24 09:45 DCW (Rec: 02/16/24 10:19 VTW [id number]) Manual Assessments Soft Tissue Assessment Soft Tissue Mobility Assessment Tenderness to palpation /4: complaint of pain along L subacromial space PT-OP-K Range of Motion Start: 12/18/23 16:02 Freq: Status: Active Protocol: Document 02/16/24 09:45 DCW (Rec: 02/16/24 10:19 DCW [id number]) Shoulder Goniometric Range of Motion Shoulder Measured in Degrees Left Active Shoulder ROM WFL Yes Testing Position Standing Flexion 180 Abduction 180 External Rotation at 0 degrees Abduction 55 Internal Rotation Behind Back (text) T8 PT-OP-L Special Tests Start: 12/18/23 16:02 Freq: Status: Active Protocol: Document 02/16/24 09:45 DCW (Rec: 02/16/24 10:19 [facility] [id number]) Special Tests Shoulder Special Tests Lift-Off Rotator Cuff Test Results Negative Reese Albaro Impingement Test Results Negative Grind Labrum Test Results Negative Empty Can Test Results Negative Drop Arm Rotator Cuff Test Results Negative PT-OP-M Strength Start: 12/18/23 16:02 Freq: Status: Active Protocol: Document 02/16/24 09:45 DCW (Rec: 02/16/24 10:19 VTW [id number]) Shoulder Strength Shoulder Manual Muscle Testing Left Flexion 4 Good Abduction (C5) 4 Good External Rotation 4 Good Internal Rotation 4 Good PT-OP-T Assessment and Plan Start: 12/18/23 16:02 Freq: Status: Active Protocol: Document 02/16/24 09:45 DCW (Rec: 02/16/24 10:17 DCW [id number]) Physical Therapy Assessment Impairments Impairments Activity Tolerance,Functional Activities,Functional Mobility ,Pain,ROM,Soft Tissue Mobility ,Strength,Tone Goals Three Impairment Pt unable to lift her purse using her left arm Shelter Goal (LTG) Pt to decrease pain to <3/10 in left shoulder in order to enable her to lift objects 10 pounds or less LTG Duration Met Two Impairment Severely limited left shoulder AROM flexion (42?) and abduction (43?) Shelter Goal (LTG) Pt to demonstrate increased left shoulder flexion and abduction AROM to at least 120 ? in both planes in order to improve ability to put away household items overhead. LTG Duration Met One Impairment Pt does not have an appropriate home exercise program Short Term Goal (STG) Pt to be independent and compliant with an appropriate HEP STG Duration Met Assessment Summary Assessment Pt has met all goals at this time, is feeling confident with HEP. Does note some lingering weakness, but feels good about discharge to independent exercise. Pt understands she will need a new referral in order to return to skilled therapy in the future. Physical Therapy Plan Frequency and Duration Frequency of Treatment 2x/Week Plan of Care Start Date 12/18/23 Plan of Care End Date 02/16/24 Therapeutic Interventions Therapeutic Interventions Home Exercise Program,Joint Mobilizations,Manual Therapy, Neuromuscular Re-education, Patient/Caregiver Education, Self-Care/Home Management,Soft Tissue Mobilization, Therapeutic Activities, Therapeutic Exercises Modalities Cold Pack/Ice Massage,Electric Stimulation,Hot Packs, Ultrasound Discharge Physical Therapy Discharge Reasons Goals Met Next Visit Focus/Plan Next Note Type Discharge Summary
== END 2024-03-31 15:19 | disposition home or self-care (01) ==
LOC: PHYS 09:45
PROVIDERS: Family Provider Family Medicine; PCP Family Medicine; Referring Provider Physician Assistant; Visit Provider Physician Assistant
DX: M25.551 Pain in right hip (principal); M25.552 Pain in left hip; M25.511 Pain in right shoulder; M25.512 Pain in left shoulder; G89.29 Other chronic pain; M54.50 Low back pain, unspecified
CPT/HCPCS: 97110; 97140; 97163; 97535

== ENCOUNTER → 2024-08-15 09:10 | Outpatient (CLI) | payer BC, SELFPAY ==
[2021-04-09 09:29] VITALS: BMI 27.2
[2024-08-15 10:56] LABS: Hematocrit 41.5 % (36-46); Hemoglobin 14.1 g/dL (12.0-16.0)
[2024-08-15 11:07] LABS: BUN Creatinine Ratio 17.7 (6-22); Blood Urea Nitrogen 17 mg/dL (7-17); Calcium 9.4 mg/dL (8.4-10.2); Carbon Dioxide 27 mmol/L (22-32); Chloride 103 mmol/L (98-107); Estimated Glomerular Filt Rate > 60 mL/min (>60); Glucose 98 mg/dL (80-110); HEMOLYSIS < 15 (0-50); Potassium 4.7 mmol/L (3.4-5.1); Sodium 136 mmol/L (137-145)
[2024-08-15 11:19] LABS: Creatinine Urine Random 114.49 mg/dL; Protein (Total) Urine Random < 5 mg/dL (0-12); Protein Creatinine Ratio Urine 0.04 GRAM/24H
[2024-08-16 07:10] LABS: Parathyroid Hormone Int 58 pg/mL (15-65)
== END ==
PROVIDERS: Family Provider Family Medicine; PCP Family Medicine; Referring Provider Student in an Organized Health Care Education/Training Program; Visit Provider Student in an Organized Health Care Education/Training Program
DX: N05.9 Unspecified nephritic syndrome with unspecified morphologic changes (principal); R80.9 Proteinuria, unspecified; D70.9 Neutropenia, unspecified; D63.1 Anemia in chronic kidney disease; N25.81 Secondary hyperparathyroidism of renal origin
CPT/HCPCS: 36415; 80048; 82570; 83970; 84156; 85014; 85018

== ENCOUNTER → 2024-12-28 13:58 | Outpatient (CLI) | payer OTHER, SELFPAY ==
[2021-04-09 09:29] VITALS: BMI 27.2
[2024-12-28 15:06] LABS: Add Manual Diff / Slide Review NO; Basophils Absolute Auto 0 /uL (0-100); Basophils Percent Auto 0.7 % (0-2); Eosinophils Absolute Auto 100 /uL (0-450); Eosinophils Percent Auto 0.9 % (2-4); Hematocrit 42.6 % (36-46); Hemoglobin 14.3 g/dL (12.0-16.0); Lymphocytes Absolute Auto 1600 /uL (1100-4500); Lymphocytes Percent Auto 24.7 % (25-40); Mean Corpuscular HGB Conc 33.5 % (30-36); Mean Corpuscular Hemoglobin 31.1 PG (26-34); Mean Corpuscular Volume 92.8 fL (80-100); Monocytes Absolute Auto 500 /uL (0-900); Monocytes Percent Auto 7.5 % (3-14); Neutrophils Absolute Auto 4300 /uL (1500-7000); Neutrophils Percent Auto 66.2 % (50-75); Platelet Count 260 X10^3/uL (150-400); Red Blood Cell Count 4.59 X10^6/uL (4.0-5.2); Red Cell Distribution Width 12.9 % (11.6-14.8); White Blood Cell Count 6.6 X10^3/uL (4.5-11.0)
[2024-12-28 15:21] LABS: Alanine Aminotransferase 19 IU/L (<35); Albumin 4.9 g/dL (3.5-5.0); Alkaline Phosphatase 57 U/L (38-126); Aspartate Aminotransferase 23 IU/L (14-36); BUN Creatinine Ratio 15.2 (6-22); Bilirubin Total 0.4 mg/dL (0.2-1.3); Blood Urea Nitrogen 19 mg/dL (7-17); Calcium 9.4 mg/dL (8.4-10.2); Carbon Dioxide 29 mmol/L (22-32); Chloride 101 mmol/L (98-107); Estimated Glomerular Filt Rate 49 mL/min (>60); Globulin 2.4 g/dL (1.7-4.1); Glucose 85 mg/dL (80-110); HEMOLYSIS < 15 (0-50); Lipase 182 U/L (23-300); Potassium 4.3 mmol/L (3.4-5.1); Sodium 139 mmol/L (137-145); Total Protein 7.3 g/dL (6.3-8.2)
[2024-12-28 16:25] LABS: TSH w/ Reflex to FT4 0.83 uIU/mL (0.47-4.68)
== END ==
LOC: LAB 13:59
PROVIDERS: Family Provider Family Medicine; PCP Family Medicine; Referring Provider Physician Assistant; Visit Provider Physician Assistant
DX: R55 Syncope and collapse (principal); R53.83 Other fatigue; R19.7 Diarrhea, unspecified
CPT/HCPCS: 80053; 83690; 84443; 85025

== ENCOUNTER → 2025-01-11 13:01 | Outpatient (CLI) | payer OTHER, SELFPAY ==
[2021-04-09 09:29] VITALS: BMI 27.2
--- NOTE | 2025-01-11 | DI.US.S_ITS ---
MM diagnostic mammo implant BI, US breast RT limited: 01/11/2025 BI-RADS: 3 CLINICAL: 59-year old female for bilateral diagnostic mammogram and right diagnostic breast ultrasound. Tyrer-Cuzick lifetime risk of 11.5%. No personal or first-degree family history of breast cancer. Current reported family history of breast cancer: maternal aunt's daughter. The patient reports right axillary lump/swelling for the past 3 months and occasional pain. The patient has bilateral implants. PRIOR EXAMS 04/08/2023, 11/01/2020, 08/11/2017, 05/03/2015. MAMMOGRAPHY TECHNIQUE: 2D and 3D (tomosynthesis) digital mammographic views obtained, with additional images as needed for full coverage. Current study was also evaluated with a Computer Aided Detection (CAD) system. ULTRASOUND TECHNIQUE TARGETED Right Breast Ultrasound: Real-time ultrasound exam was performed focused to area of clinical and/or imaging concern. DENSITY C. The breasts are heterogeneously dense, which may obscure small masses. IMPLANTS There are bilateral retropectoral saline implants. MAMMOGRAPHY FINDINGS Right (finding-2): CC only, Central, 2 cm from nipple, Middle depth, measuring 1.2 cm: There is an asymmetry seen only on one view. This finding does not persist on spot compression view, and may have been present on prior mammogram from 05/03/2015. Right (finding-1): MLO only, Axilla: A skin marker was placed in the area of concern, and no mammographic abnormalities are identified or to account for concern by the patient of a palpable lump and pain/tenderness. No axillary adenopathy. No suspicious mass, asymmetry, microcalcification, or other abnormality seen. Left: There are no suspicious masses, calcifications, or other findings in the breast. ULTRASOUND FINDINGS Right (finding-1): Axilla: No suspicious sonographic finding present. Right (finding-2): Lower at 6:00, 2 cm from nipple: No suspicious sonographic finding present. There is no sonographic correlate for the mammographic finding. IMPRESSION: Right (Asymmetry): CC only, Central, 2 cm from nipple, Middle depth, measuring 1.2 cm * Probably Benign. Right * Axilla: No evidence of malignancy with benign findings. Left * No evidence of malignancy with benign findings. RECOMMENDATIONS Right: CC only, Central, 2 cm from nipple, Middle depth * Six month followup with diagnostic mammography and diagnostic ultrasound. Ultrasound to be performed only if needed. Right: Axilla * Clinical follow-up is recommended for the patient's right axillary pain and lump/swelling. Further management of palpable abnormalities or other focal signs or symptoms should be based on the results of clinical evaluation. If palpable abnormality or other concerning symptom persists or progresses, further clinical evaluation should be considered. Left * Annual screening mammography in one year. OVERALL ASSESSMENT CATEGORY BI-RADS-3: Probably Benign. ELECTRONICALLY SIGNED: Jackie Lazo M.D. on 01/11/2025 at 04:43:23 PM PT Interpreting Station ID: [id number]
== END ==
LOC: MAMMO 13:01
PROVIDERS: Family Provider Family Medicine; PCP Family Medicine; Referring Provider Physician Assistant; Visit Provider Physician Assistant
DX: Z12.39 Encounter for other screening for malignant neoplasm of breast (principal); R22.30 Localized swelling, mass and lump, unspecified upper limb; R55 Syncope and collapse; R19.7 Diarrhea, unspecified; Z98.82 Breast implant status; Z80.3 Family history of malignant neoplasm of breast
CPT/HCPCS: 76642; 77066; G0279

== ENCOUNTER → 2025-01-24 11:30 | Outpatient (CLI) | payer OTHER, SELFPAY ==
[2021-04-09 09:29] VITALS: BMI 27.2
--- NOTE | 2025-01-24 11:34 | DI.US.S_ITS ---
US axillary only rt: 01/24/2025. BI-RADS: 1 CLINICAL: 59-year old female for right diagnostic breast ultrasound. Patient returns for right axillary ultrasound to re-examine the area of swelling, which the patient reports was incompletely addressed on the last exam from 01/11/2025. Tyrer-Cuzick lifetime risk of 11.5%. No personal or first-degree family history of breast cancer. Current reported family history of breast cancer: maternal aunt's daughter. PRIOR EXAMS: 01/11/2025. ULTRASOUND TECHNIQUE: Exam is limited to the right axilla. Real-time esteban scale and color doppler imaging of the area of clinical interest was performed with image documentation. ULTRASOUND FINDINGS Right: Axilla: There is no suspicious sonographic finding to account for concern by the patient of a palpable lump. Clinical concern is explained by normal-appearing tissue. No significant change on comparison. There are non-enlarged, benign-appearing axillary lymph nodes. Additional images of the axilla were taken in the patient's area of concern, including extensive cine clips examining the entirety of the right axilla. Right: Axilla: There is an incidental avascular intramuscular hyperechoic lesion measuring 1.3 x 0.5 x 0.6 cm. This is likely unrelated to the patient's reported right axillary swelling given size and intramuscular location. This could represent an intramuscular lipoma. IMPRESSION: Right * No evidence of malignancy. RECOMMENDATIONS Right: Axilla * Clinical followup with referring physician. Right: Axilla * The incidental hyperechoic intramuscular lesion is incompletely characterized on this exam. A CT or MRI of the chest with contrast can be obtained for further evaluation (to include the area of interest in the right axilla within the field of view). Appointment to be made at earliest convenience. OVERALL ASSESSMENT CATEGORY BI-RADS-1: Negative. ELECTRONICALLY SIGNED: Jackie Lazo M.D. on 01/24/2025 at 02:50:58 PM PT Interpreting Station ID: [id number]
== END ==
PROVIDERS: Family Provider Family Medicine; PCP Family Medicine; Referring Provider Family Medicine; Visit Provider Family Medicine
DX: N63.31 Unspecified lump in axillary tail of the right breast (principal); M79.89 Other specified soft tissue disorders; Z80.3 Family history of malignant neoplasm of breast
CPT/HCPCS: 76882

== ENCOUNTER → 2025-02-13 08:43 | Outpatient (CLI) | payer OTHER, SELFPAY ==
[2021-04-09 09:29] VITALS: BMI 27.2
--- NOTE | 2025-02-13 09:52 | DI.MRI.S_ITS ---
PROCEDURE: MR CHEST WO/W CON INDICATIONS: Lesion R axilla TECHNIQUE: Axial 2-D FLASH in- and [id number], axial breath-hold T2 FSE, axial STIR FSE. Optional contrast may be given, followed by axial 2-D FLASH with fat saturation acquired over the lesion of concern. COMPARISON: [facility], US, US AXILLARY ONLY RT, 01/24/2025, 11:48. FINDINGS: Image quality: Excellent. Region of interest: Fiducial marker is placed in Upper right axilla. Multiple benign-appearing lymph nodes are seen in the right axilla. No discrete soft tissue mass or drainable fluid collection is noted. No area of abnormal enhancement is seen. Subtle fat signal within antral medial aspect of proximal right biceps muscle belly which may indicate a small intramuscular lipoma. Right subpectoral breast implant is seen and is grossly intact. The visualized right lung field is clear. Bones: Nearby osseous structures demonstrate normal overall marrow signal. IMPRESSION: 1. No definite enhancing soft tissue mass or intramuscular mass. No discrete drainable fluid collection. 2. Subtle fat signal in anterior medial aspect of proximal biceps muscle near the site of the marker which may indicate a tiny intramuscular lipoma. 3. Benign-appearing right axillary lymph nodes. Dictated by: Alfredo Nguyen M.D. on 02/13/2025 at 10:34 Approved by: Alfredo Nguyen M.D. on 02/13/2025 at 11:25
== END ==
LOC: MRI 08:47
PROVIDERS: PCP Family Medicine; Referring Provider Family Medicine; Visit Provider Family Medicine
DX: R22.31 Localized swelling, mass and lump, right upper limb (principal)
CPT/HCPCS: 71552; A9579

== ENCOUNTER → 2025-02-15 13:38 | Outpatient (CLI) | payer OTHER, SELFPAY ==
[2021-04-09 09:29] VITALS: BMI 27.2
[2025-02-15 15:07] LABS: Add Manual Diff / Slide Review NO; Basophils Absolute Auto 0 /uL (0-100); Basophils Percent Auto 0.8 % (0-2); Eosinophils Absolute Auto 0 /uL (0-450); Eosinophils Percent Auto 0.7 % (2-4); Hematocrit 41.1 % (36-46); Hemoglobin 13.9 g/dL (12.0-16.0); Lymphocytes Absolute Auto 1900 /uL (1100-4500); Mean Corpuscular HGB Conc 33.7 % (30-36); Mean Corpuscular Volume 91.9 fL (80-100); Monocytes Absolute Auto 400 /uL (0-900); Monocytes Percent Auto 7.1 % (3-14); Neutrophils Absolute Auto 3800 /uL (1500-7000); Neutrophils Percent Auto 61.4 % (50-75); Platelet Count 247 X10^3/uL (150-400); Red Blood Cell Count 4.47 X10^6/uL (4.0-5.2); Red Cell Distribution Width 13.4 % (11.6-14.8); White Blood Cell Count 6.2 X10^3/uL (4.5-11.0)
[2025-02-15 15:39] LABS: Alanine Aminotransferase 21 IU/L (<35); Albumin 4.6 g/dL (3.5-5.0); Albumin Globulin Ratio 2.3 (1.0-2.8); Alkaline Phosphatase 52 U/L (38-126); Aspartate Aminotransferase 21 IU/L (14-36); BUN Creatinine Ratio 18.4 (6-22); Bilirubin Total 0.6 mg/dL (0.2-1.3); Blood Urea Nitrogen 21 mg/dL (7-17); Calcium 9.7 mg/dL (8.4-10.2); Carbon Dioxide 29 mmol/L (22-32); Chloride 102 mmol/L (98-107); Estimated Glomerular Filt Rate 55 mL/min (>60); Glucose 95 mg/dL (80-110); HEMOLYSIS < 15 (0-50); Potassium 4.7 mmol/L (3.4-5.1); Sodium 138 mmol/L (137-145); Total Protein 6.6 g/dL (6.3-8.2)
== END ==
LOC: LAB 13:38
PROVIDERS: PCP Family Medicine; Referring Provider Family Medicine; Visit Provider Family Medicine
DX: Z77.098 Contact with and (suspected) exposure to other hazardous, chiefly nonmedicinal, chemicals (principal); M79.89 Other specified soft tissue disorders; F41.9 Anxiety disorder, unspecified
CPT/HCPCS: 80053; 85025

== ENCOUNTER → 2025-07-25 08:05 | Outpatient (CLI) | payer OTHER, SELFPAY ==
[2021-04-09 09:29] VITALS: BMI 27.2
[2025-07-25 09:10] LABS: Hematocrit 41.4 % (36-46); Hemoglobin 13.8 g/dL (12.0-16.0)
[2025-07-25 09:42] LABS: Protein (Total) Urine Random < 5 mg/dL (0-12); Protein Creatinine Ratio Urine 0.05 GRAM/24H
[2025-07-25 09:44] LABS: Blood Urea Nitrogen 20 mg/dL (7-17); Calcium 9.5 mg/dL (8.4-10.2); Carbon Dioxide 26 mmol/L (22-32); Chloride 104 mmol/L (98-107); Estimated Glomerular Filt Rate > 60 mL/min (>60); Glucose 100 mg/dL (70-99); HEMOLYSIS < 15 (0-50); Potassium 4.5 mmol/L (3.4-5.1); Sodium 138 mmol/L (137-145)
== END ==
PROVIDERS: PCP Family Medicine; Referring Provider Family Medicine; Visit Provider Student in an Organized Health Care Education/Training Program
DX: D70.9 Neutropenia, unspecified (principal); N05.9 Unspecified nephritic syndrome with unspecified morphologic changes; N25.81 Secondary hyperparathyroidism of renal origin; R80.9 Proteinuria, unspecified; D63.1 Anemia in chronic kidney disease
CPT/HCPCS: 36415; 80048; 82570; 83970; 84156; 85014; 85018

== ENCOUNTER → 2025-08-17 09:09 | Outpatient (CLI) | payer OTHER, SELFPAY ==
[2021-04-09 09:29] VITALS: BMI 27.2
--- NOTE | 2025-08-17 09:13 | DI.MRI.S_ITS ---
PROCEDURE: MR CERVICAL SPINE WO CON INDICATIONS: Radiculopathy B arms; muscle weakness TECHNIQUE: Noncontrast sagittal T1 spin echo and T2 fast spin echo, sagittal STIR, foraminal oblique sagittal T2 fast spin echo, and axial gradient echo or T2 fast spin echo through the cervical spine. COMPARISON: [facility], MR, MR CERVICAL SPINE WO CON, 12/06/2018, 9:11. FINDINGS: Image quality: Diagnostic Alignment and Curvature: Straightening of the usual cervical lordosis. Grade 1 retrolisthesis of C5 on C6. Bone Marrow: Marrow demonstrates normal overall signal. Spinal Cord: Visualized spinal cord has normal size and signal. No cerebellar tonsillar herniation. Paraspinous Soft Tissues: No paravertebral masses. Prevertebral soft tissues are normal in thickness. C2-C3: Normal appearance. C3-C4: No significant spinal canal stenosis. Similar right severe neural foraminal stenosis due to facet greater than uncovertebral arthrosis. No mild left neural foraminal stenosis due to uncovertebral and facet arthrosis. C4-C5: Similar mild spinal canal stenosis due to degenerate disc osteophyte complex. Right moderate and left mild neural foraminal stenosis due to uncovertebral greater than facet arthrosis. C5-C6: Similar moderate spinal canal stenosis due to degenerate disc osteophyte complex and ligamentum flavum thickening. Bilateral severe neural foraminal stenosis due to uncovertebral greater than facet arthrosis. C6-C7: Similar mild spinal canal stenosis due to degenerate disc osteophyte complex. Similar left moderate and right mild neural foraminal stenosis due to facet greater than uncovertebral arthrosis. C7-T1: No spinal canal stenosis. Progressive right moderate to severe and left mild neural foraminal stenosis due to facet greater than uncovertebral arthrosis. IMPRESSION: 1. Similar multilevel spinal canal stenosis which reaches moderate at C5-6. 2. Multilevel neural foraminal stenosis is progressive on the right at C7-T1, reaches moderate to severe and is similarly severe onat C3-4 and bilaterally at C5-6. Dictated by: Bravo Martinez M.D. on 08/17/2025 at 12:56 Approved by: Bravo Martinez M.D. on 08/17/2025 at 13:18
== END ==
LOC: MRI 09:13
PROVIDERS: PCP Family Medicine; Referring Provider Physician Assistant; Visit Provider Physician Assistant
DX: R93.89 Abnormal findings on diagnostic imaging of other specified body structures (principal); M47.22 Other spondylosis with radiculopathy, cervical region; M47.23 Other spondylosis with radiculopathy, cervicothoracic region; M48.02 Spinal stenosis, cervical region; M48.03 Spinal stenosis, cervicothoracic region
CPT/HCPCS: 72141

== ENCOUNTER → 2025-08-22 10:06 | Outpatient (CLI) | payer OTHER, SELFPAY ==
[2021-04-09 09:29] VITALS: BMI 27.2
--- NOTE | 2025-08-22 10:10 | DI.MG.S_ITS ---
MM diagnostic mammo implant RT: 08/22/2025. BI-RADS: 2 CLINICAL: 60-year old female for right diagnostic mammogram that is a follow-up to diagnostic mammogram on 01/11/2025. Tyrer-Cuzick lifetime risk of 11.0%. No personal or first-degree family history of breast cancer. Current reported family history of breast cancer: maternal aunt's daughter. The patient has bilateral implants. PRIOR EXAMS 01/24/2025, , 04/08/2023, 11/01/2020, 08/11/2017. MAMMOGRAPHY TECHNIQUE: 2D and 3D (tomosynthesis) digital mammographic views obtained, with additional images as needed for full coverage. Current study was also evaluated with a Computer Aided Detection (CAD) system. DENSITY Right: C. The breast is heterogeneously dense, which may obscure small masses. IMPLANTS Right: Breast implant present on the right. MAMMOGRAPHY FINDINGS Right: CC only, Central, Middle depth: The previously seen asymmetry is no longer visualized. No sonographic correlate was identified on the prior ultrasound. There are no suspicious masses, calcifications, or other findings in the breast. IMPRESSION: Right * No evidence of malignancy with benign findings. RECOMMENDATIONS Bilateral * Annual screening mammography (due December 2025). COMMENTS: Findings and recommendations were conveyed to the patient during today's evaluation. OVERALL ASSESSMENT CATEGORY BI-RADS-2: Benign. The [employer] recommends annual screening mammography beginning at age 40 for women with average risk of breast cancer. ELECTRONICALLY SIGNED: Jackie Lazo M.D. on 08/22/2025 at 05:20:04 PM PT Interpreting Station ID: [id number]
== END ==
LOC: MAMMO 10:09
PROVIDERS: PCP Family Medicine; Referring Provider Family Medicine; Visit Provider Family Medicine
DX: R92.8 Other abnormal and inconclusive findings on diagnostic imaging of breast (principal); R92.331 Mammographic heterogeneous density, right breast; Z98.82 Breast implant status; Z80.3 Family history of malignant neoplasm of breast
CPT/HCPCS: 77065; G0279